=== PATIENT | male | born 1980 | race African-American/Black ===

== ENCOUNTER 2023-04-11 00:55 | Emergency (ER) | payer OTHER, SELFPAY ==
--- NOTE | ~2023-04-11 | XR_ITS ---
EXAMINATION: XR CHEST CLINICAL INFORMATION: Cough. COMPARISON: None available. TECHNIQUE: Frontal view of the chest was obtained. FINDINGS: The cardiomediastinal silhouette is normal. There is no focal lung consolidation or pleural effusion. The bony structures and soft tissues are unremarkable. XR/XR chest 1V IMPRESSION: No active cardiopulmonary disease.
--- NOTE | 2023-04-11 00:58 | ECG_ITS ---
Test Reason : OD Blood Pressure : / mmHG Vent. Rate : 102 BPM Atrial Rate : 102 BPM P-R Int : 158 ms QRS Dur : 088 ms QT Int : 362 ms P-R-T Axes : 068 063 008 degrees QTc Int : 471 ms Sinus tachycardia Minimal voltage criteria for LVH, may be normal variant ( Sokolow-Motley ) Nonspecific T wave abnormality Abnormal ECG No previous ECGs available Referred By: Generic ED Physician Electronically Signed By:RUTHY PIRES
[2023-04-11 01:01] VITALS: BP 141/91; PULSE 104; O2SAT 96; BMI 25.3
--- NOTE | 2023-04-11 01:22 | ED.OVERDOSE ---
HPI - Overdose General Chief Complaint: Overdose Stated Complaint: od Time Seen by Provider: 04/11/23 01:20 Source: patient Limitations: no limitations History of Present Illness HPI Narrative: Patient comes to the emergency room complaining of an overdose. Patient states this was an accident, did not mean to hurt himself. Patient was given 60 mg of Narcan by police department. When EMS arrived, patient was alert and oriented. Here in the emergency room, patient remains alert oriented, calm, states that he did drink hard alcohol but does not remember how much. Patient denies any falls or injuries. Denies HI or SI. Related Data Allergies Allergy/AdvReac Type Severity Reaction Status Date / Time No Known Allergies Allergy Verified 04/11/23 01:22 Review of Systems Review of Systems: Constitutional : No Weight loss, No Fever, No Chills, No Night Sweats, No Fatigue, No Malaise ENT/Mouth : No Hearing loss, No Ear Pain, No Nasal Congestion, No Sinus Pain, No Hoarseness, No sore throat, No Rhinorrhea, No Swallowing Difficulty Eyes: No Eye Pain, No Swelling, No Redness, No Foreign Body, No Discharge, No Vision Changes Cardiovascular : No Chest Pain, No SOB, No Dyspnea on Exertion, No Orthopnea, No Edema, No Palpitations Respiratory : No Cough, No Sputum, No Wheezing, No Smoke Exposure, No Dyspnea Gastrointestinal : No Nausea, No Vomiting, No Diarrhea, No Constipation, No abdominal Pain, No Hematochezia, No Melena Genitourinary : no irregular bleeding, No Dysuria, No Urinary Frequency, No Hematuria, No Urinary Incontinence, No Urgency, No Flank Pain, No Urinary Flow Changes, No Hesitancy Musculoskeletal : No joint pain, No Myalgias, No Joint Swelling Skin : No Skin Lesions, No rash Neuro : No Weakness, No Numbness, No Paresthesias, No Loss of Consciousness, No Dizziness, No Headache Psych : No Anxiety/Panic, No Depression, No SI/HI/AH/VH, admits to accidental overdose and alcohol abuse Heme/Lymph: No Bruising, No Bleeding,No Lymphadenopathy Endocrine : No Polyuria, No Polydipsia, No Temperature Intolerance PMFSH Past Medical History Medical History Alcohol abuse Polysubstance abuse Social History Social History Alcohol intake: current Alcohol intake frequency: 3 or more drinks per day Alcohol type: beer, wine and hard liquor Smoked in Last 30 Days: Yes Use of substances other than those prescribed or required for medical reasons: Yes Substance Use Type: Crack/Cocaine Substance Use Frequency: Daily Last Used Substance: Just Prior to Admission Any prior treatment program specific to substance use: No Physical Exam Vital Signs: Vital Signs: Last Vital Signs Temp 98.7 F 04/11/23 01:23 Pulse 99 04/11/23 01:23 Resp 14 04/11/23 01:23 BP 149/94 H 04/11/23 01:23 Pulse Ox 95 04/11/23 01:23 O2 Del Method Room Air 04/11/23 01:23 BMI result Body Mass Index 25.3 Const: Other: Appearance: Alert. Oriented X3. No acute distress. Eyes: Pupils equal, round and reactive to light. ENT: Pharynx normal. Neck: Normal inspection. Neck supple. No lymph nodes noted. No crepitus CVS: Normal heart rate and rhythm. Pulses normal. Normal S1 and S2 Respiratory: No respiratory distress. Breath sounds normal. No Wheezing. No rales Abdomen: Soft and nontender. No rigidity. No distention. Skin: Skin warm and dry. Normal skin color. Normal skin turgor. Extremities: No lower extremity edema. No Lacerations. No Rash Neuro: Oriented X 3. No motor deficit. No sensory deficit. Moving all extremities. No slurred speech. CN 2 through 12 grossly intact Psych: calm, cooperative, normal affect Course Course Course Narrative: -at this time, patient is awake, alert and oriented x3, calm, cooperative -patient's vitals stable, blood pressure 149/94, heart rate 99, respirations 14, oxygen saturation 96% on room air. -all of patient's labs pending -patient is not SI or HI, Section 12 is not indicated -when patient is ready for discharge, we will offer care/sude eval -patient to be discharged with home Narcan -physician observation started at 01:30 Discharge Plan Discharge Clinical Impression: Drug overdose Patient Disposition: Still a Patient
[2023-04-11 01:23] VITALS: BP 149/94; PULSE 99; RESP 14; TEMP 37.1; O2SAT 95
[2023-04-11 02:55] LABS: MANUAL DIFF FLAG NO
[2023-04-11 02:58] LABS: Basophils Percent Auto 0.3 % (0-2); Hematocrit 43.8 % (42.0-52.0); Hemoglobin 14.3 g/dl (14.0-18.0); Imm Gran Abs Auto 0.01 X10*3/uL (0.00-0.03); Imm Gran Pct Auto 0.1 % (0.0-0.4); Lymphocytes Absolute Auto 1.1 X10*3/uL (1.2-4.9); Lymphocytes Percent Auto 14.9 % (20-40); Mean Corpuscular HGB Conc 32.6 g/dl (31.0-36.0); Mean Corpuscular Hemoglobin 28.7 pg (27.0-33.0); Mean Corpuscular Volume 87.8 fL (80.0-98.0); Mean Platelet Volume 8.6 fL (9.4-12.4); Monocytes Absolute Auto 0.4 X10*3/uL (0.1-1.2); Monocytes Percent Auto 5.2 % (2-11); Neutrophils Absolute Auto 5.9 x10*3/uL (2.0-8.3); Neutrophils Percent Auto 79.5 % (45-73); Platelet Count 271 X10*3/uL (160-400); Red Blood Count 4.99 X10*6/uL (4.60-5.80); Red Cell Distribution Width 13.3 % (11.0-16.0); White Blood Count 7.4 X10*3/uL (4.8-10.8)
[2023-04-11 03:12] LABS: Ethanol 173 mg/dL
[2023-04-11 03:15] LABS: Alanine Aminotransferase 19 U/L (0-40); Albumin Level 4.2 g/dL (3.5-5.0); Alkaline Phosphatase 82 U/L (39-117); Anion Gap 20 (12-20); Aspartate Amino Transferase 23 U/L (5-37); Bilirubin Total 0.4 mg/dL (0.0-1.0); Blood Urea Nitrogen 14 mg/dL (9-16); Carbon Dioxide 21 mmol/L (22-29); Chloride 106 mmol/L (96-108); Creatinine Clr Calc Pharmacy 78.3; Estimated Glomerular Filt Rate > 60; Glucose Random 81 mg/dL (60-115); Potassium 3.9 mmol/L (3.3-5.1); Sodium 143 mmol/L (135-145); Total Protein 7.2 g/dL (6.5-8.0)
[2023-04-11 03:31] LABS: Troponin-I High Sensitivity 3.8 ng/L (<3.5-35.0)
[2023-04-11 05:07] VITALS: BP 108/39; PULSE 98; RESP 19; O2SAT 95
[2023-04-11 06:11] VITALS: BP 105/45; PULSE 104; RESP 14; TEMP 36.6; O2SAT 96
[2023-04-11 07:18] VITALS: BP 118/58; PULSE 110; RESP 18; O2SAT 96
--- NOTE | 2023-04-11 07:19 | PC.NURSE ---
pt alert and oriented, skin appropriate for ethnicity, respirations even and unlabored, pt denies pain, pt provided with a sandwich and drink.
[2023-04-11] MEDS: Naloxone HCl Nasal TAKE HOME 4 MG SPRAY 8 MG NOSTRILALT (07:28)
== END 2023-04-11 07:31 | disposition home or self-care (01) ==
LOC: HO.ED 07:27
PROVIDERS: Emergency Provider Emergency Medicine
DX: T50.901A Poisoning by unspecified drugs, medicaments and biological substances, accidental (unintentional), initial encounter (principal); F19.10 Other psychoactive substance abuse, uncomplicated; X58.XXXA Exposure to other specified factors, initial encounter; F10.10 Alcohol abuse, uncomplicated; Y90.6 Blood alcohol level of 120-199 mg/100 ml
CPT/HCPCS: 36415; 71045; 80053; 80307; 84484; 85025; 93005; 99284; 99285

== ENCOUNTER 2023-05-23 23:37 | Emergency (ER) | payer OTHER, SELFPAY ==
--- NOTE | 2023-05-23 | ECG_ITS ---
Test Reason : OVERDOSE Blood Pressure : / mmHG Vent. Rate : 104 BPM Atrial Rate : 104 BPM P-R Int : 156 ms QRS Dur : 086 ms QT Int : 358 ms P-R-T Axes : 079 073 -10 degrees QTc Int : 470 ms Sinus tachycardia Abnormal QRS-T angle, consider primary T wave abnormality Abnormal ECG When compared with ECG of 11-APR-2023 01:10, No significant change was found Referred By: Generic ED Physician Electronically Signed By:AKHIL KIRKPATRICK MD
--- NOTE | ~2023-05-23 | XR_ITS ---
EXAMINATION: XR SHOULDER, LEFT CLINICAL INFORMATION: Pain. COMPARISON: None available. TECHNIQUE: AP external rotation, Grashey, scapular Y, and axillary views of the left shoulder. FINDINGS: The bone mineralization is normal. There is elevation of the clavicular end of the acromioclavicular joint relative to the acromial end. There is no fracture. The glenohumeral joint is within normal limits. The soft tissues are unremarkable. XR/XR shoulder LT min 2V IMPRESSION: Elevation of the clavicular end of the acromioclavicular joint relative to the acromial end suggests a grade 2 acromioclavicular separation probably chronic as there is no given history of recent trauma. No acute fracture seen.
[2023-05-23 23:48] VITALS: BP 155/84; BP 158/95; PULSE 108; PULSE 114; RESP 16; TEMP 37; O2SAT 98; BMI 25.8
--- NOTE | 2023-05-24 00:18 | MHC.EDTECH ---
Patient arrived by EMS,changed into hospital attire,cafeteria monitor placed and EKG taken per order. Vitals taken,and all belongings went to [facility],security at bedside for changeover. Belonging list completed.
--- NOTE | 2023-05-24 00:22 | ED.OVERDOSE ---
HPI - Overdose General Chief Complaint: Overdose Stated Complaint: OD Time Seen by Provider: 05/24/23 00:22 Source: patient and EMS Mode of arrival: EMS Limitations: no limitations History of Present Illness HPI Narrative: Patient history of substance abuse says that somebody gave him a powder and he sniffed also had few drinks earlier denies any chronic use of opiate use but he was seen here on 04/11/2023 with opiate overdose again patient lying unconscious in the middle of the road with shallow breathing was given 12 mg of Narcan by PD patient alert awake on arrival saturating 98% on room air patient also complaining of pain in left shoulder which is been there for long time also had history of Chlamydia few months ago but never been treated no penile discharge Related Data Previous Rx's Medication Instructions Recorded doxycycline hyclate 100 mg tablet 100 mg PO BID #14 tabs 05/24/23 Allergies Allergy/AdvReac Type Severity Reaction Status Date / Time No Known Allergies Allergy Verified 04/11/23 01:22 Review of Systems Review of Systems: Yes all other systems are reviewed and are negative [facility] Past Medical History Medical History Alcohol abuse Polysubstance abuse Social History Social History Alcohol intake: current Alcohol intake frequency: 3 or more drinks per day Alcohol type: beer, wine and hard liquor Smoked in Last 30 Days: Yes Use of substances other than those prescribed or required for medical reasons: Yes Substance Use Type: Crack/Cocaine and Heroin Substance Use Frequency: Chronic Longstanding Advance Directives: No Advance Directives Information Provided: No Physical Exam Vital Signs: Vital Signs: Last Vital Signs Temp 98.2 F 05/24/23 04:12 Pulse 98 05/24/23 04:12 Resp 16 05/24/23 04:12 BP 140/76 H 05/24/23 04:12 Pulse Ox 98 05/24/23 04:12 O2 Del Method Room Air 05/24/23 04:12 BMI result Body Mass Index 25.8 Appearance: Alert. Oriented X3. No acute distress. Eyes: PERRLA, No Nystagmus ENT: Pharynx normal. Oral Mucosa moist Neck: Normal inspection. Neck supple. CVS: Normal heart rate and rhythm. Pulses normal. Respiratory: No respiratory distress. Equal air entry bilateral, no wheezing/rales/rhonchi Abdomen: Soft and nontender. Bowel sounds are present, no mass palpable, no CVA tenderness Skin: Skin warm and dry. Normal skin color. Normal skin turgor. Extremities: No lower extremity edema. No calf tenderness left shoulder chronic tenderness Neuro: Oriented X 3. No motor deficit. No sensory deficit.No cerebellar signs , cranial nerves II-XII intact Medications Administered Discontinued Medications Generic Name Dose Route Start Last Admin Trade Name Kentrell PRN Reason Stop Dose Admin Doxycycline Monohydrate 100 mg 05/24/23 02:17 05/24/23 02:31 Doxycycline Monohydrate 100 Mg Capsule PO 05/24/23 02:18 100 mg ONCE ONE Administration Medical Decision Making Medical Decision Making [facility] Narrative: Patient with opiate and cocaine overdose alert oriented x3 in ER x-ray of the left shoulder showed AC separation which is likely the cause for the chronic pain patient was given doxycycline for presumptive chlamydia infection Lab Data [facility] Lab Attestation statement: I reviewed the patient's lab results. Labs: Lab Results 05/24/23 Range/Units 03:10 Urine Opiates Screen Not Detected (Not Detect) Urine Fentanyl Screen POSITIVE H (Not Detect) Ur Barbiturates Screen Not Detected (Not Detect) Ur Phencyclidine Scrn Not Detected (Not Detect) Ur Amphetamines Screen Not Detected (Not Detect) U Benzodiazepines Scrn Not Detected (Not Detect) Urine Cocaine Screen POSITIVE H (Not Detect) U Marijuana (THC) Screen Not Detected (Not Detect) Chlam trachomat DNA PCR NOT DETECTED (Not Detect.) N.gonorrhoeae DNA (PCR) NOT DETECTED (Not Detect.) Discharge Plan Discharge Clinical Impression: Accidental opiate poisoning, Cocaine abuse Patient Disposition: Home, Self-Care Instructions: Cocaine Abuse (ED), Opioid Use Disorder (ED) Additional Instructions: Stop using drugs Take doxycycline for possible chlamydia infection as you had this few months ago and not been treated Your chronic left shoulder AC separation causing the pain Prescriptions: New doxycycline hyclate 100 mg tablet 100 mg PO BID Qty: 14 0RF Interventions: ED Discharge Assessment Last Done: 05/24/23 05:16 Discharge Date/Time: 05/24/23 05:18
[2023-05-24 02:08] VITALS: BP 152/79; PULSE 98; RESP 18; TEMP 36.7; O2SAT 98
--- NOTE | 2023-05-24 02:09 | MHC.EDTECH ---
Patient was giving a sandwich and a can of gingerale,Hourly rounds and vitals completed.
[2023-05-24] MEDS: Doxycycline Monohydrate 100 MG CAPSULE PO (02:31)
--- NOTE | 2023-05-24 03:10 | MHC.EDTECH ---
UDS and CTNG obtained and sent to lab.
[2023-05-24 03:28] LABS: Amphetamine Screen Urine Not Detected (Not Detect); Barbiturates, Urine Not Detected (Not Detect); Benzodiazepines Screen Urine Not Detected (Not Detect); Cannabinoid Screen Urine Not Detected (Not Detect); Cocaine Screen Urine POSITIVE (Not Detect); Fentanyl, urine POSITIVE (Not Detect); Opiate Screen Urine Not Detected (Not Detect); Phencyclidine Screen Urine Not Detected (Not Detect)
[2023-05-24 04:12] VITALS: BP 140/76; PULSE 98; RESP 16; TEMP 36.8; O2SAT 98
--- NOTE | 2023-05-24 04:16 | MHC.EDTECH ---
Hourly rounds and vitals completed,patient is sleeping at this time with call blount within reach
[2023-05-24 12:14] LABS: CT PCR NOT DETECTED (Not Detect.); NG PCR NOT DETECTED (Not Detect.)
== END 2023-05-24 05:18 | disposition home or self-care (01) ==
PROVIDERS: Emergency Provider Internal Medicine
DX: T40.1X1A Poisoning by heroin, accidental (unintentional), initial encounter (principal); Y92.9 Unspecified place or not applicable; R00.0 Tachycardia, unspecified; M25.512 Pain in left shoulder; F14.10 Cocaine abuse, uncomplicated; F11.10 Opioid abuse, uncomplicated; Z71.51 Drug abuse counseling and surveillance of drug abuser; Z79.899 Other long term (current) drug therapy
CPT/HCPCS: 0353U; 73030; 80307; 93005; 99283; 99285

== ENCOUNTER 2023-05-31 04:13 | Emergency (ER) | payer OTHER, SELFPAY ==
--- NOTE | 2023-05-31 | ECG_ITS ---
Test Reason : cocaine use Blood Pressure : / mmHG Vent. Rate : 088 BPM Atrial Rate : 088 BPM P-R Int : 146 ms QRS Dur : 072 ms QT Int : 364 ms P-R-T Axes : 077 061 006 degrees QTc Int : 440 ms Normal sinus rhythm with sinus arrhythmia Minimal voltage criteria for LVH, may be normal variant ( Sokolow-Motley ) Borderline ECG When compared with ECG of 23-MAY-2023 23:46, T wave amplitude has increased in Anterolateral leads Referred By: Generic ED Physician Electronically Signed By:AKHIL KIRKPATRICK MD
[2023-05-31 04:30] VITALS: BP 193/112; PULSE 101; RESP 20; TEMP 36.7; O2SAT 98; BMI 25.8
--- NOTE | 2023-05-31 04:51 | MHC.EDTECH ---
Patient brought to triage area, EKG taken per order and signed by provider.
[2023-05-31 05:55] VITALS: BP 164/86; PULSE 98; RESP 20; O2SAT 98
--- NOTE | 2023-05-31 06:50 | ED_ITS ---
HPI - General Adult General Chief complaint: General Medical Stated complaint: l shoulder pain and numbness down to hand Time Seen by Provider: 05/31/23 06:40 Source: patient Mode of arrival: ambulatory Limitations: no limitations History of Present Illness HPI narrative: 42 year old male with pmhx significant for substance use disorder presents to the ED today with a complaint of left shoulder pain x months, worsening over the last week. He was evaluated in our ED 7 days ago for same pain with XRs showing chronic AC separation. He was not prescribed any medication for this and has not been taking anything for the pain at home. Denies new injury or trauma to the left shoulder. Reports full range of motion to the left arm/ shoulder however this elicits pain. Denies numbness, weakness, tingling down the left arm. Denies chest pain, shortness of breath, palpitations. Related Data Previous Rx's Medication Instructions Recorded doxycycline hyclate 100 mg tablet 100 mg PO BID #14 tabs 05/24/23 lidocaine 5 % topical patch 1 patch topical DAILY #15 ea 05/31/23 (Lidoderm) naproxen 500 mg tablet 500 mg PO Q8-12H PRN pain (scale 05/31/23 score 4-6) #20 tabs Allergies Allergy/AdvReac Type Severity Reaction Status Date / Time No Known Allergies Allergy Verified 04/11/23 01:22 Review of Systems 2 Review of Systems: Constitutional: No fever, chills, fatigue, night sweats, weight changes ENT/Mouth: No ear pain, hearing loss, nasal congestion, sinus pain, rhinorrhea, sore throat Eyes: No eye pain, swelling, redness, vision changes, discharge Cardio: No chest pain, palpitations, FERNANDEZ, orthopnea, peripheral edema Pulm: No SOB, cough, sputum, wheezing, dyspnea, hemoptysis GI: No nausea, vomiting, hematemesis, abdominal pain, diarrhea, constipation, hematochezia, melena : No irregular bleeding, dysuria, frequency, urgency, hesitancy, hematuria, flank pain, urinary flow changes, urinary incontinence or retention MSK: No back pain, neck pain, joint pain, myalgias, +left shoulder pain Skin: No lesions, rashes Neuro: No weakness, numbness, paresthesias, LOC, dizziness, headache All other systems reviewed and are negative. [facility] Past Medical History Attestation statement: The following information was validated with the patient. Source: old records reviewed and nursing notes reviewed Medical History Alcohol abuse Polysubstance abuse Social History Alcohol intake: current Alcohol intake frequency: 3 or more drinks per day Alcohol type: beer, wine and hard liquor Smoked in Last 30 Days: Yes Use of substances other than those prescribed or required for medical reasons: Yes Substance Use Type: Crack/Cocaine Last Used Substance: Just Prior to Admission Advance Directives: No Advance Directives Information Provided: Yes Physical Exam ED Vital Signs: Vital Signs - 24 hr 05/31/23 04:30 05/31/23 05:55 05/31/23 10:41 Temperature 98.0 F Pulse Rate 101 H 98 73 Respiratory Rate 20 20 14 Blood Pressure 193/112 H 164/86 H 129/79 Pulse Oximetry 98 98 97 Oxygen Delivery Method Room Air Room Air Room Air BMI result Body Mass Index 25.8 Viital signs initially notable for tachycardia and tachypnea likely secondary to cocaine ingestion prior to arrival. Const General: cooperative, comfortable, no acute distress, alert and awake Orientation/consciousness: patient oriented x3 Limitations: no limitations HENMT Head: Yes normal to inspection Ears: hearing grossly normal bilaterally Eyes General: appearance normal, both eyes and all related structures Conjunctivae: conjunctivae normal Sclerae: sclerae normal Pupils: Equal, round and reactive pupils present Neck Neck: Yes normal visual inspection and Yes full ROM Chest Chest palpation & inspection: normal inspection of the chest, normal palpation of entire chest wall and no tenderness Resp Effort & Inspection: normal respiratory effort Auscultation: clear to auscultation bilaterally Cardio Rate: regular rate Rhythm: regular rhythm Peripheral pulses: radial pulses present and ulnar radial pulses present Back/Spine/Pelvis Other: No midline spinous tenderness. No paraspinal muscle tenderness bilaterally. No step-off deformity. Skin General skin exam: no rashes or lesions noted Neuro General: patient oriented x3, gait normal and moves all extremities Cranial nerves: Yes Equal, round and reactive pupils present Extrem Other: + No overlying effusion or cellulitic changes to the left shoulder. There is tenderness overlying the posterior and lateral aspects of the left shoulder without palpable deformity or step-off. There is full ROM intact of the left shoulder to flexion, extension, abduction, adduction. There is increased pain noted during abduction of left shoulder. 2+ radial and ulnar pulses bilaterally. Negative Tinel's. Negative Phalen's. General: Yes normal to inspection and Yes full ROM Course Course Course Narrative: CBC without leukocytosis. Chemistry without acute electrolyte abnormality requiring intervention. EKG WNL. Troponin WNL. > Symptoms are not consistent with ACS. > on chart review, x-ray left shoulder obtained 7 days ago shows a type 2 AC separation. this is likely the cause of patient's pain. management for this is pain control and sling. Will apply sling in ED and provide patient with a referral to Orthopedics for further evaluation and treatment. Will send naproxen, Lidoderm patches to patient's pharmacy to take as needed for pain. Informed him of workup. patient reports pain improvement with medications in ED today. He is feeling better and requesting food. Patient has remained stable throughout ED visit today. Discussed strict return precautions. All questions answered at this time. Patient is agreeable with disposition and stable for discharge. Medications Administered Discontinued Medications Generic Name Dose Route Start Last Admin Trade Name Freq PRN Reason Stop Dose Admin Cyclobenzaprine HCl 10 mg 05/31/23 07:27 05/31/23 07:36 Cyclobenzaprine Hcl 10 Mg Tablet PO 05/31/23 07:28 10 mg ONCE ONE Administration Ketorolac Tromethamine 15 mg 05/31/23 07:27 05/31/23 07:36 Ketorolac Tromethamine 15 Mg/Ml Vial IM 05/31/23 07:28 15 mg ONCE ONE Administration Lidocaine 1 patch 05/31/23 07:27 05/31/23 07:37 Lidocaine 4 % Patch Adh..Patch TRANSDERMA 05/31/23 07:28 1 patch ONCE ONE Administration Protocol Medical Decision Making Medical Decision Making MDM Narrative: 42 year old male with pmhx significant for substance use disorder presents to the ED today with a complaint of left shoulder pain x months, worsening over the last week. Vital signs initially notable for hypertension and tachycardia likely secondary to cocaine abuse prior to arrival. Vital signs have normalized without intervention. He is nontoxic appearing and in NAD. On exam there is no overlying effusion or cellulitic changes to the left shoulder. There is tenderness overlying the posterior and lateral aspects of the left shoulder without palpable deformity or step-off. There is full ROM intact of the left shoulder to flexion, extension, abduction, adduction. There is increased pain noted during abduction of left shoulder. 2+ radial and ulnar pulses bilaterally. Negative Tinel's. Negative Phalen's. RRR. No midline spinous tenderness or step off deformity. Clinical concern for fracture, dislocation, acromioclavicular joint pathology, MSK sprain/ strain. Unlikely cervical radiculopathy, rotator cuff injury, cubital or carpal tunnel syndrome. plan at this time and is basic labs, EKG, pain control, review of chart and re- evaluation. Differential Diagnosis Differential Diagnoses: The differential diagnosis associated with the presentation includes As above. Admission/Observation Not indicated. Lab Data MDM Lab Attestation statement: I reviewed the patient's lab results. As above. 05/31/23 07:17 05/31/23 07:17 Labs: Lab Results 05/31/23 Range/Units 07:17 WBC 9.5 (4.8-10.8) X10*3/uL RBC 4.75 (4.60-5.80) X10*6/uL Hgb 13.3 L (14.0-18.0) g/dl Hct 40.6 L (42.0-52.0) % MCV 85.5 (80.0-98.0) fL MCH 28.0 (27.0-33.0) pg MCHC 32.8 (31.0-36.0) g/dl RDW 13.1 (11.0-16.0) % Plt Count 328 (160-400) X10*3/uL MPV 8.5 L (9.4-12.4) fL Immature Gran % (Auto) 0.2 (0.0-0.4) % Neut % (Auto) 71.5 (45-73) % Lymph % (Auto) 21.5 (20-40) % [place] % (Auto) 6.4 (2-11) % Eos % (Auto) 0.1 (0-4) % Baso % (Auto) 0.3 (0-2) % Lymph # (Auto) 2.0 (1.2-4.9) X10*3/uL [place] # (Auto) 0.6 (0.1-1.2) X10*3/uL Eos # (Auto) 0.0 (0.0-0.4) X10*3/uL Baso # (Auto) 0.0 (0.0-0.2) X10*3/uL Abs Immat Gran (auto) 0.02 (0.00-0.03) X10*3/uL Absolute Neuts (auto) 6.8 (2.0-8.3) x10*3/uL Absolute Nucleated RBC 0.000 (0.0-0.012) X10*3/uL Nucleated RBC % (auto) 0.0 (0.0-0.2) /100WBC ESR 3 (0-15) MM/HR Sodium 141 (135-145) mmol/L Potassium 3.6 (3.3-5.1) mmol/L Chloride 107 (96-108) mmol/L Carbon Dioxide 27 (22-29) mmol/L Anion Gap 11 L (12-20) BUN 14 (9-16) mg/dL Creatinine 1.00 (0.5-1.4) mg/dL Estim Creat Clear Calc 87.7 Estimated GFR > 60 Random Glucose 103 (60-115) mg/dL Calcium 9.1 (8.4-10.2) mg/dL Magnesium 1.9 (1.6-2.6) mg/dL Troponin I High Sens 6.2 D (<3.5-35.0) ng/L C-Reactive Protein 0.49 (< or = 0.50) mg/dL Independent Interpretation I performed an independent interpretation of an: EKG Interpretation: EKG showing normal sinus rhythm with sinus arrhythmia, rate of 88 ppm, QT 364, increased T-wave amplitude in anterior lateral leads likely secondary to cocaine abuse. External Record Review External record reviewed: Inpatient record Tests considered The following testing was considered but not selected: Considered obtaining x-ray left shoulder however for imaging performed 7 days ago without new injury or trauma to the shoulder. Not indicated at this time. Prescription Management I considered prescription management with: Pain Medication Chronic Conditions Patient?s care impacted by: Other (polysubstance abuse) Critical Care Time Critical Care Time Critical Care Time: No Discharge Plan Discharge Clinical Impression: Separation of AC joint, type 2 Patient Disposition: Home, Self-Care Instructions: Acromioclavicular Separation (ED), Shoulder Pain (ED) Additional Instructions: Your labs today are reassuring. You had an x-ray performed of your left shoulder 7 days ago which showed a grade 2 AC joint separation, chronic. Management for this is pain control and sling. You have been provided with a sling for your left shoulder. Keep this on for the next 7 days to immobilize the shoulder. You need to follow up with ortho. You have been provided with a referral. CALL THEM TO MAKE AN APPOINTMENT. THEY WILL NOT CALL YOU. You may require physical therapy or even surgery. Naproxen is an anti-inflammatory that has been sent to your pharmacy. Take this as needed for shoulder pain/discomfort. Do not take this with other NSAIDs as it may increase risk of GI bleed. Lidocaine patches have been sent to your pharmacy. Apply these to shoulder as needed for pain control. Follow-up with your primary care physician as needed. If symptoms persist or worsen you can return to the emergency department. In the case of emergency call 911. Prescriptions: New lidocaine [Lidoderm] 5 % adhesive patch,medicated 1 patch topical DAILY Qty: 15 0RF Rx Instructions: leave on most painful area for up to 12 hrs naproxen 500 mg tablet 500 mg PO Q8-12H PRN (Reason: pain (scale score 4-6)) Qty: 20 0RF No Action doxycycline hyclate 100 mg tablet 100 mg PO BID Qty: 14 0RF Referrals: [facility] [Provider Group] Interventions: ED Discharge Assessment Last Done: 05/31/23 10:49 Discharge Date/Time: 05/31/23 12:23
[2023-05-31 07:22] LABS: MANUAL DIFF FLAG NO
[2023-05-31 07:26] LABS: Basophils Percent Auto 0.3 % (0-2); Eosinophils Percent Auto 0.1 % (0-4); Hematocrit 40.6 % (42.0-52.0); Hemoglobin 13.3 g/dl (14.0-18.0); Imm Gran Abs Auto 0.02 X10*3/uL (0.00-0.03); Imm Gran Pct Auto 0.2 % (0.0-0.4); Lymphocytes Percent Auto 21.5 % (20-40); Mean Corpuscular HGB Conc 32.8 g/dl (31.0-36.0); Mean Corpuscular Volume 85.5 fL (80.0-98.0); Mean Platelet Volume 8.5 fL (9.4-12.4); Monocytes Absolute Auto 0.6 X10*3/uL (0.1-1.2); Monocytes Percent Auto 6.4 % (2-11); Neutrophils Absolute Auto 6.8 x10*3/uL (2.0-8.3); Neutrophils Percent Auto 71.5 % (45-73); Platelet Count 328 X10*3/uL (160-400); Red Blood Count 4.75 X10*6/uL (4.60-5.80); Red Cell Distribution Width 13.1 % (11.0-16.0); White Blood Count 9.5 X10*3/uL (4.8-10.8)
[2023-05-31 07:36] LABS: Anion Gap 11 (12-20); Blood Urea Nitrogen 14 mg/dL (9-16); C Reactive Protein 0.49 mg/dL (< or = 0.50); Calcium 9.1 mg/dL (8.4-10.2); Carbon Dioxide 27 mmol/L (22-29); Chloride 107 mmol/L (96-108); Creatinine Clr Calc Pharmacy 87.7; Estimated Glomerular Filt Rate > 60; Glucose Random 103 mg/dL (60-115); Magnesium 1.9 mg/dL (1.6-2.6); Potassium 3.6 mmol/L (3.3-5.1); Sodium 141 mmol/L (135-145)
[2023-05-31] MEDS: Ketorolac Tromethamine 15 MG/ML VIAL IM (07:36)
[2023-05-31] MEDS: Cyclobenzaprine HCl 10 MG TABLET PO (07:36)
[2023-05-31] MEDS: Lidocaine 4 % Patch ADH..PATCH 1 PATCH TRANSDERMA (07:37)
[2023-05-31 07:43] LABS: Troponin-I High Sensitivity 6.2 ng/L (<3.5-35.0)
[2023-05-31 08:12] LABS: Erythrocyte Sedimentation Rate 3 MM/HR (0-15)
[2023-05-31 10:41] VITALS: BP 129/79; PULSE 73; RESP 14; O2SAT 97
--- NOTE | 2023-05-31 11:27 | PC.NURSE ---
pts belongings in dryer in pod. awaitng d/c
== END 2023-05-31 12:23 | disposition home or self-care (01) ==
PROVIDERS: Physician Assistant Medical; Emergency Provider Emergency Medicine
DX: S43.102A Unspecified dislocation of left acromioclavicular joint, initial encounter (principal); X58.XXXA Exposure to other specified factors, initial encounter; Y93.9 Activity, unspecified; Y92.9 Unspecified place or not applicable; Y99.9 Unspecified external cause status; F14.90 Cocaine use, unspecified, uncomplicated; M25.512 Pain in left shoulder
CPT/HCPCS: 36415; 80048; 83735; 84484; 85025; 85652; 86140; 93005; 96372; 99284; J1885

== ENCOUNTER 2024-04-21 04:22 | Inpatient (IN) | payer OTHER, SELFPAY ==
[2024-04-21] VITALS (8 sets, daily range): BP systolic 125–172; BP diastolic 66–95; PULSE 62–102; RESP 14–18; TEMP 36.6–37.2; O2SAT 94–99; BMI 26.0
--- NOTE | 2024-04-21 05:06 | ED_ITS ---
HPI - Psych General Chief Complaint: Psychiatric Symptoms Stated Complaint: crisis Time Seen by Provider: 04/21/24 05:06 Source: patient Mode of arrival: ambulatory Limitations: no limitations History of Present Illness ED Provider: ney CHOUDHURY Narrative: Patient's history of cocaine opiate use feel increasingly depressed with SI feeling last use was an hour prior to arrival Related Data Previous Rx's ?Medication ?Instructions ?Recorded doxycycline hyclate 100 mg tablet 100 mg PO BID #14 tabs 05/24/23 lidocaine 5 % topical patch 1 patch topical DAILY #15 ea 05/31/23 (Lidoderm) naproxen 500 mg tablet 500 mg PO Q8-12H PRN pain (scale 05/31/23 score 4-6) #20 tabs Allergies Allergy/AdvReac Type Severity Reaction Status Date / Time No Known Allergies Allergy Verified 04/21/24 04:30 Review of Systems 2 Review of Systems: Yes all other systems are reviewed and are negative PMFSH Past Medical History Medical History Alcohol abuse Polysubstance abuse Social History Social History Alcohol intake: current Alcohol intake frequency: 3 or more drinks per day Alcohol type: beer, wine and hard liquor Use of substances other than those prescribed or required for medical reasons: Yes Substance Use Type: Crack/Cocaine Advance Directives: No Physical Exam 2 Vital Signs: Vital Signs: Last Vital Signs Temp 99 F 04/21/24 06:00 Pulse 102 H 04/21/24 06:00 Resp 16 04/21/24 06:00 BP 135/67 04/21/24 06:00 Pulse Ox 97 04/21/24 06:00 O2 Del Method Room Air 04/21/24 06:00 BMI result Body Mass Index 26.0 Appearance: Alert. Oriented X3. No acute distress. Eyes: PERRLA, No Nystagmus ENT: Pharynx normal. Oral Mucosa moist Neck: Normal inspection. Neck supple. CVS: Normal heart rate and rhythm. Pulses normal. Respiratory: No respiratory distress. Equal air entry bilateral, no wheezing/rales/rhonchi Abdomen: Soft and nontender. Bowel sounds are present, no mass palpable, no CVA tenderness Skin: Skin warm and dry. Normal skin color. Normal skin turgor. Extremities: No lower extremity edema. No calf tenderness psych: Depressed feels suicidal no plan Neuro: Oriented X 3. No motor deficit. No sensory deficit.No cerebellar signs , cranial nerves II-XII intact Medical Decision Making Medical Decision Making [facility] Narrative: Patient with polysubstance abuse with SI will get care team involved Lab Data MDM Lab Attestation statement: I reviewed the patient's lab results. 04/21/24 05:19 04/21/24 05:19 Labs: Lab Results 04/21/24 Range/Units 05:19 WBC 5.8 (4.8-10.8) X10*3/uL RBC 4.90 (4.60-5.80) X10*6/uL Hgb 13.6 L (14.0-18.0) g/dl Hct 41.1 L (42.0-52.0) % MCV 83.9 (80.0-98.0) fL MCH 27.8 (27.0-33.0) pg MCHC 33.1 (31.0-36.0) g/dl RDW 13.2 (11.0-16.0) % Plt Count 313 (160-400) X10*3/uL MPV 8.3 L (9.4-12.4) fL Immature Gran % (Auto) 0.2 (0.0-0.4) % Neut % (Auto) 55.6 (45-73) % Lymph % (Auto) 35.2 (20-40) % [place] % (Auto) 8.2 (2-11) % Eos % (Auto) 0.3 (0-4) % Baso % (Auto) 0.5 (0-2) % Lymph # (Auto) 2.0 (1.2-4.9) X10*3/uL [place] # (Auto) 0.5 (0.1-1.2) X10*3/uL Eos # (Auto) 0.0 (0.0-0.4) X10*3/uL Baso # (Auto) 0.0 (0.0-0.2) X10*3/uL Abs Immat Gran (auto) 0.01 (0.00-0.03) X10*3/uL Absolute Neuts (auto) 3.2 (2.0-8.3) x10*3/uL Absolute Nucleated RBC 0.000 (0.0-0.012) X10*3/uL Nucleated RBC % (auto) 0.0 (0.0-0.2) /100WBC Sodium 140 (135-145) mmol/L Potassium 3.7 (3.3-5.1) mmol/L Chloride 102 (96-108) mmol/L Carbon Dioxide 28 (22-29) mmol/L Anion Gap 14 (12-20) BUN 9 (9-16) mg/dL Creatinine 1.11 (0.5-1.4) mg/dL Estim Creat Clear Calc 78.2 Estimated GFR > 60 Random Glucose 99 (60-115) mg/dL Calcium 9.1 (8.4-10.2) mg/dL Total Bilirubin 0.8 (0.0-1.0) mg/dL AST 21 (5-37) U/L ALT 21 (0-40) U/L Alkaline Phosphatase 92 (39-117) U/L Total Protein 6.8 (6.5-8.0) g/dL Albumin 4.2 (3.5-5.0) g/dL Ethyl Alcohol < 10 mg/dL Discharge Plan Discharge Clinical Impression: Suicidal ideation, Polysubstance abuse Patient Disposition: Still a Patient Prescriptions: No Action lidocaine [Lidoderm] 5 % adhesive patch,medicated 1 patch topical DAILY Qty: 15 0RF Rx Instructions: leave on most painful area for up to 12 hrs naproxen 500 mg tablet 500 mg PO Q8-12H PRN (Reason: pain (scale score 4-6)) Qty: 20 0RF doxycycline hyclate 100 mg tablet 100 mg PO BID Qty: 14 0RF Print Language: Hebrew
[2024-04-21 05:24] LABS: Basophils Percent Auto 0.5 % (0-2); Eosinophils Percent Auto 0.3 % (0-4); Hematocrit 41.1 % (42.0-52.0); Hemoglobin 13.6 g/dl (14.0-18.0); Imm Gran Abs Auto 0.01 X10*3/uL (0.00-0.03); Imm Gran Pct Auto 0.2 % (0.0-0.4); Lymphocytes Percent Auto 35.2 % (20-40); MANUAL DIFF FLAG NO; Mean Corpuscular HGB Conc 33.1 g/dl (31.0-36.0); Mean Corpuscular Hemoglobin 27.8 pg (27.0-33.0); Mean Corpuscular Volume 83.9 fL (80.0-98.0); Mean Platelet Volume 8.3 fL (9.4-12.4); Monocytes Absolute Auto 0.5 X10*3/uL (0.1-1.2); Monocytes Percent Auto 8.2 % (2-11); Neutrophils Absolute Auto 3.2 x10*3/uL (2.0-8.3); Neutrophils Percent Auto 55.6 % (45-73); Platelet Count 313 X10*3/uL (160-400); Red Cell Distribution Width 13.2 % (11.0-16.0); White Blood Count 5.8 X10*3/uL (4.8-10.8)
[2024-04-21 05:46] LABS: Alanine Aminotransferase 21 U/L (0-40); Albumin Level 4.2 g/dL (3.5-5.0); Alkaline Phosphatase 92 U/L (39-117); Anion Gap 14 (12-20); Aspartate Amino Transferase 21 U/L (5-37); Bilirubin Total 0.8 mg/dL (0.0-1.0); Blood Urea Nitrogen 9 mg/dL (9-16); Calcium 9.1 mg/dL (8.4-10.2); Carbon Dioxide 28 mmol/L (22-29); Chloride 102 mmol/L (96-108); Creatinine Clr Calc Pharmacy 78.2; Estimated Glomerular Filt Rate > 60; Ethanol < 10 mg/dL; Glucose Random 99 mg/dL (60-115); Potassium 3.7 mmol/L (3.3-5.1); Sodium 140 mmol/L (135-145); Total Protein 6.8 g/dL (6.5-8.0)
--- NOTE | 2024-04-21 06:28 | PC.NURSE ---
Pt is a&ox4, no signs of distress Pt calm and cooperative. Pt changed into hospital attire and sitter with pt Plan of care ongoing.
--- NOTE | 2024-04-21 07:00 | PC.NURSE ---
Report taken from Coreen Renteria RN
--- NOTE | 2024-04-21 10:32 | PC.NURSE ---
this nurse took over patient care at 9am from chris, patient a&ox3, vss, pt rr equal/non labored, 1:1 sitter, pt came in with thoughts of SI but is currently denying SI. pt awaiting care team, med req needs to be done- this nurse will attempt med req with patient.
--- NOTE | 2024-04-21 10:40 | PC.NURSE ---
med req called pharmacy to perform med req as patient told this nurse he hadnt taken meds in a long while.
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
[2024-04-21 12:48] LABS: Amphetamine Screen Urine Not Detected (Not Detect); Barbiturates, Urine Not Detected (Not Detect); Benzodiazepines Screen Urine Not Detected (Not Detect); Buprenorphine Scr Not Detected (Not Detect); Cannabinoid Screen Urine Not Detected (Not Detect); Cocaine Screen Urine POSITIVE (Not Detect); Fentanyl, urine Not Detected (Not Detect); Methadone Screen, Urine Not Detected (Not Detect); Opiate Screen Urine Not Detected (Not Detect); Oxycodone Screen Urine Not Detected (Not Detect); Phencyclidine Screen Urine Not Detected (Not Detect)
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
--- NOTE | 2024-04-21 19:07 | PC.NURSE ---
this rn assumed care of pt, pt resting in stretcher,no acute distress noted.pt denies pain at this time, vss. Randolph ESPARZA aware of pt med rec being complete.
--- NOTE | 2024-04-21 19:30 | MHC.CARE ---
Pt evaluated by the CARE team; Pt is appropriate for Dual Dx and Pt is agreeable. No Dual Dx availability today. On a section 12A for safety.
[2024-04-21] MEDS: Gabapentin 300 MG CAPSULE PO (20:14)
[2024-04-21] MEDS: metFORMIN HCl 1,000 MG TABLET 1000 MG PO (20:14)
[2024-04-21] MEDS: Melatonin 3 MG TABLET 6 MG PO (20:16)
[2024-04-21] MEDS: Prazosin HCL 1 MG CAPSULE PO (20:16)
[2024-04-22 06:31] VITALS: BP 128/80; PULSE 74; RESP 18; TEMP 36.7; O2SAT 96
[2024-04-22 07:18] VITALS: BP 130/82; PULSE 74; RESP 14; O2SAT 97
[2024-04-22 08:27] VITALS: BP 131/86; PULSE 65; RESP 18; TEMP 36.7; O2SAT 98
[2024-04-22] MEDS: Gabapentin 300 MG CAPSULE PO ×3 (08:30→21:39)
[2024-04-22] MEDS: ARIPiprazole 5 MG TABLET PO (08:30)
[2024-04-22] MEDS: metFORMIN HCl 1,000 MG TABLET 1000 MG PO ×2 (08:30→21:39)
--- NOTE | 2024-04-22 08:30 | PC.NURSE ---
pt is alert and oriented, skin appropriate for ethnicity, respirations even and unlabored, pt denies si/hi, calm and cooperative at this time. after the pt took his metformin reports he states that he has been off the metformin for over a year-pt states that his doctor told him to stop taking it because his A1C dropped from 11 to 5, when asked why he is still picking up the medication he states that he gets it filled at the same time as his other medications and its just easier. Emily ESPARZA aware of this conversation, plan to check the pt's A1C today.
[2024-04-22 09:06] LABS: Estimated Average Glucose 114 mg/dL; Hemoglobin A1C 118.5827 umol/L; Hemoglobin A1c % 5.6 % (<6.0); Total Hemoglobin (HGBA1C) 3177.5866 umol/L
[2024-04-22 13:33] VITALS: BP 145/88; PULSE 59; RESP 18; TEMP 36.7; O2SAT 98
[2024-04-22 15:55] VITALS: BP 140/76; PULSE 64; RESP 16; TEMP 36.9; O2SAT 97
--- NOTE | 2024-04-22 19:47 | PC.NURSE ---
pt resting comfortably on the stretcher, no apparent distress, calm and cooperative at this time
[2024-04-22] MEDS: Prazosin HCL 1 MG CAPSULE PO (21:39)
[2024-04-22] MEDS: Melatonin 3 MG TABLET 6 MG PO (21:39)
[2024-04-22 21:42] VITALS: BP 127/46; PULSE 61; RESP 16; TEMP 37.1; O2SAT 97
--- NOTE | 2024-04-23 | ECG_ITS ---
Test Reason : cocaine use Blood Pressure : / mmHG Vent. Rate : 075 BPM Atrial Rate : 075 BPM P-R Int : 158 ms QRS Dur : 092 ms QT Int : 386 ms P-R-T Axes : 064 060 003 degrees QTc Int : 431 ms Normal sinus rhythm Nonspecific T wave abnormality Borderline ECG When compared with ECG of 31-MAY-2023 04:45, No significant change was found Referred By: Josr Hwang Electronically Signed By:JESSI SALAZAR
[2024-04-23 06:32] VITALS: BP 132/70; PULSE 56; RESP 16; TEMP 36.7; O2SAT 97
--- NOTE | 2024-04-23 06:58 | PC.NURSE ---
resumed care of patient, he remains resting at this time, call blount within reach 1:[address] Awaiting careteam eval at this time
[2024-04-23] MEDS: ARIPiprazole 5 MG TABLET PO (07:52)
[2024-04-23] MEDS: metFORMIN HCl 1,000 MG TABLET 1000 MG PO ×2 (07:52→21:07)
[2024-04-23] MEDS: Gabapentin 300 MG CAPSULE PO ×3 (07:52→21:08)
[2024-04-23 10:20] LABS: Appearance Urine Clear; Color Urine Yellow; Glucose Urine UA Negative (Negative); Leukocyte Esterase Urine Moderate (2+) (Negative); Nitrite Urine Negative (Negative); PH 5.5 (5.0-9.0); Specific Gravity - Urine 1.025 (1.005-1.025); UMIC TRIGGER UACC YES; Urine Blood Negative (Negative); Urine Ketones Trace mg/dL (Negative); Urine Protein Negative (Neg-Trace)
[2024-04-23 10:23] LABS: Bacteria Urine None Seen (None Seen); Hyaline Casts Urine 0-2 /LPF (0-2); RBC Urine 0-2 /HPF (0-2); Squamous Epithelial Cell Urine 0-2 /HPF (0-2); UACC Culture Trigger YES; WBC Urine 21-50 /HPF (0-5)
[2024-04-23 15:05] VITALS: BP 147/82; PULSE 75; RESP 16; TEMP 36.6; O2SAT 97
[2024-04-23] MEDS: LORazepam 1 MG TABLET PO (16:46)
[2024-04-23 20:00] VITALS: BP 136/71; PULSE 75; RESP 18; TEMP 36.4; O2SAT 97
--- NOTE | 2024-04-23 20:43 | PC.ADMIT ---
Addendum entered by Sadie Dumont RN 04/23/24 21:09: Bartolo is placed on a CIWA q4, signed a CV and a three day notice to be up on Thursday 04/26. Original Note: Bartolo Ochoa is a 43 year old Colombian speaking male who arrived to the unit after self presenting to the [facility] ED on 04/21 for SI, increased depression and heavy daily alcohol use as well as daily crack/cocaine use. Bartolo is alert and oriented. He is currently homeless, however has the support of his sister where he sometimes stays. Bartolo used alcohol and cocaine both prior to admission and this is his first inpatient psychiatric admission. Skin check was done upon admission and unremarkable. Bartolo's belongings with the exception of his underwear are in [place]. Bartolo is soft spoken and cooperative with the admission process. At this time he denies SI/HI/AVH but endorses significant depression and hopelessness. Bartolo is looking for medication maintenance and to have outpatient psych providers set up upon discharge. He has a primary care physician, is on metformin for type 2 diabetes however states that his A1c has decreased into the 5's. 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 Bartolo was polite and cooperative with the admission process, oriented to the unit and placed on 15 minute checks for safety.
[2024-04-23 21:07] VITALS: BP 136/71
[2024-04-23] MEDS: Prazosin HCL 1 MG CAPSULE PO (21:07)
[2024-04-23] MEDS: Melatonin 3 MG TABLET 6 MG PO (21:08)
[2024-04-23] MEDS: OLANZapine 5 MG TABLET PO (21:25)
[2024-04-23] MEDS: traZODone HCL 100 MG TABLET PO (21:25)
[2024-04-24 00:20] VITALS: BP 128/70; PULSE 65; RESP 12; TEMP 36.5; O2SAT 96
[2024-04-24 04:19] VITALS: BP 118/72; PULSE 58; RESP 16; TEMP 36.7; O2SAT 98
[2024-04-24 08:00] VITALS: BP 137/58; PULSE 76; RESP 18; O2SAT 97
[2024-04-24 08:22] LABS: Estimated Average Glucose 108 mg/dL; Hemoglobin A1C 121.8761 umol/L; Hemoglobin A1c % 5.4 % (<6.0); Total Hemoglobin (HGBA1C) 3427.5834 umol/L
[2024-04-24 08:27] LABS: Cholesterol 144 mg/dL (<200); HDL Cholesterol 47 mg/dL (>40); LDL Cholesterol Calculated 64 mg/dL (<100); Triglycerides 169 mg/dL (<150)
--- NOTE | 2024-04-24 08:57 | HO.PSYADMNOT ---
HPI Date of Service: 04/24/24 Chief Complaint: depresion Sources of Information: patient interviewed, chart reviewed and crisis/core team assessment reviewed HPI Subjective Notes: Ortiz Warning and Conditional Voluntary Narrative: Patient is a 43-year-old homeless male with history of depression, PTSD, alcohol/crack cocaine dependency, use disorder who presents for worsening depression and dark thoughts in the face of continued substance abuse and psychosocial stressors. Patient reports that he chronically struggles with depression which will sometimes become severe. He says alcohol and crack cocaine are used to to numb his anxiety and depression and he has been using daily and heavily for years (0.5 gal vodka daily). Patient reports accompanying AH which is mood congruent and resolves when he is sober and not depressed. Patient reports that his depression worsened this past month after his cousin he started arguing with his family. His depression worsened this past week and he reports having dark thoughts... To do crazy stuff... To do something that would make me go to senior care... And so he self presented for treatment. Patient denies any SI or history of self-harm. Denies any clear history of manic type episodes or behaviors; ongoing PTSD symptoms. Patient has never taken medications consistently since he is homeless and ends up losing his prescription. Patient however would like to try medications now. Past Psychiatric History: No history of psychiatric hospitalizations No history of SI or SA No therapeutic medication trials Medical Evaluation Reviewed: Yes [facility] Medical History (Updated 04/24/24 @ 14:06 by Mickey Lobo MD) PTSD (post-traumatic stress disorder) MDD (major depressive disorder), recurrent, severe, with psychosis Cocaine use disorder Alcohol use disorder Homeless Alcohol abuse Polysubstance abuse Family History: Mother: depressed, anxiety oldest sister: depressed, anxiety Social History: mom 3 sisters (living); 1 sister Patient is close to his sisters and keeps in contact with them Substance History: Daily alcohol, 0.5 gal vodka plus other drinks per day for years, decades Crack cocaine daily for years, decades Sober for 4 months about 3 years ago while he was at [facility] Trauma History: Reports history of trauma; does not disclose Diagnostics Vital Signs (24Hr): Vital Signs - 24 hr 04/23/24 15:05 04/23/24 20:00 04/23/24 21:07 Temperature 97.9 F 97.6 F Pulse Rate 75 75 Respiratory Rate 16 18 Blood Pressure 147/82 H 136/71 136/71 Pulse Oximetry 97 97 Oxygen Delivery Method Room Air Room Air 04/24/24 00:20 04/24/24 04:19 04/24/24 08:00 Temperature 97.7 F 98.1 F Pulse Rate 65 58 76 Respiratory Rate 12 16 18 Blood Pressure 128/70 118/72 137/58 L Pulse Oximetry 96 98 97 Oxygen Delivery Method Room Air Room Air Room Air BMI result Body Mass Index 26.0 Labs 04/21/24 05:19 04/21/24 05:19 Labs: Laboratory Results - last 48 hr 04/22/24 04/23/24 04/24/24 08:43 10:13 07:49 Estimat Average Glucose 114 108 Hemoglobin A1c % 5.6 5.4 Triglycerides 169 H Cholesterol 144 LDL Cholesterol, Calc 64 HDL Cholesterol 47 Urine Color Yellow Urine Appearance Clear Urine pH 5.5 Ur Specific [place] 1.025 Urine Protein Negative Urine Glucose (UA) Negative Urine Ketones Trace Urine Blood Negative Urine Nitrite Negative Ur Leukocyte Esterase Moderate (2+) H Urine RBC 0-2 Urine WBC 21-50 H Ur Squamous Epith Cells 0-2 Urine Bacteria None Seen Hyaline Casts 0-2 Meds/Allergies Meds Home Medications ?Medication ?Instructions ?Recorded ?Confirmed ?Type aripiprazole 5 mg tablet 5 mg PO DAILY 04/21/24 04/21/24 History chlorhexidine gluconate 4 % 1 appl topical DAILY 04/21/24 04/21/24 History topical liquid (Hibiclens) gabapentin 300 mg capsule 300 mg PO TID 04/21/24 04/21/24 History hydroxyzine HCl 25 mg tablet 25 - 50 mg PO BID PRN Anxiety 04/21/24 04/21/24 History ibuprofen 600 mg tablet 600 mg PO Q8H PRN Pain 04/21/24 04/21/24 History melatonin 5 mg tablet 5 mg PO BEDTIME 04/21/24 04/21/24 History metformin 500 mg tablet 1,000 mg PO BID 04/21/24 04/21/24 History nicotine (polacrilex) 4 mg gum 4 mg PO Q2H PRN Nicotine Cravings 04/21/24 04/21/24 History prazosin 1 mg capsule 1 mg PO BEDTIME 04/21/24 04/21/24 History trazodone 50 mg tablet 50 - 100 mg PO BEDTIME PRN Sleep 04/21/24 04/21/24 History Allergies Allergies Allergy/AdvReac Type Severity Reaction Status Date / Time No Known Allergies Allergy Verified 04/21/24 04:30 Mental Status Exam Mental Status Exam Narrative: Pt is alert and oriented; behavior is cooperative, friendly and calm; patient is not in distress; dressed in hospital attire, disheveled; mood is described as depressed and affect congruent, downcast; eye contact appropriate; Speech is normal rate, volume and prosody and not pressured; psychomotor retardation present; thought process is organized and goal directed; Thought content is on psychosocial stressors, tx; otherwise pertinent to relevant topics and without any delusional content, paranoid ideations or grandiosity; denies any SI/HI. AH, not command, mood congruent Patients insight and judgment impaired Assessment & Plan Assessment & Plan (1) MDD (major depressive disorder), recurrent, severe, with psychosis: Status: Acute Code(s): F33.3 - Major depressive disorder, recurrent, severe with psychotic symptoms (2) PTSD (post-traumatic stress disorder): Status: Acute Code(s): F43.10 - Post-traumatic stress disorder, unspecified (3) Homeless: Status: Acute Code(s): Z59.00 - Homelessness unspecified (4) Alcohol use disorder: Status: Acute Code(s): F10.90 - Alcohol use, unspecified, uncomplicated (5) Cocaine use disorder: Status: Acute Code(s): F14.10 - Cocaine abuse, uncomplicated Plan Patient is a 43-year-old homeless male with history of depression, PTSD, alcohol/crack cocaine dependency, use disorder who presents for worsening depression and dark thoughts in the face of continued substance abuse and psychosocial stressors. Patient reports that he chronically struggles with depression which will sometimes become severe. He says alcohol and crack cocaine are used to to numb his anxiety and depression and he has been using daily and heavily for years (0.5 gal vodka daily). Patient reports accompanying AH which is mood congruent and resolves when he is sober and not depressed. Patient reports that his depression worsened this past month after his cousin he started arguing with his family. His depression worsened this past week and he reports having dark thoughts... To do crazy stuff... To do something that would make me go to senior care... And so he self presented for treatment. Patient denies any SI or history of self-harm. Denies any clear history of manic type episodes or behaviors; ongoing PTSD symptoms. Patient has never taken medications consistently since he is homeless and ends up losing his prescription. Patient however would like to try medications now. Formulation/clinical reasoning History of MDD and PTSD with mood congruent AH. History of severe alcohol and cocaine abuse. Currently Patient is in mild alcohol withdrawal as he has been in the ED for several days and his last drink was about 4 days ago; still has symptoms and benefiting from gabapentin being used for withdrawal. Patient reports he was sober for about 4 months several years ago and on a helpful medication but does not know what was; discussed options and patient agrees to trial of Wellbutrin. Discussed program for sobriety and Patient says that he would like treatment however he has an urgent family matter he has to attend to this week, helping his sister with something specific (though did not disclose) and says that after that is accomplished he wants to all hardly pursue sobriety. He understands his risk of relapse. Discussed MAT's and patient is ambivalent, having been on something before that he found not that effective PLAN: CV q15min CIWA with prn Ativan Gabapentin 300mg TID for etoh w/drawal Start Wellbutrin XL 150 mg Urine culture: No growth Chlamydia/gonorrhea results pending Patient educated on: diagnosis, medication risk/benefits, substance abuse and therapeutic strategies Informed Consent: understands Reason for continued inpatient stay Substantial Risk for: stable for discharge and rapid decompensation Statement Statement: I have reviewed the history and physical and performed a pertinent examination on my patient. No changes have occurred unless specified. If the History and Physical was not performed prior to admission, the Hospitalist's service will be consulted for completing the admission physical. Time Spent With Patient Time: Total time managing care of this patient today ____ minutes.
[2024-04-24] MEDS: ARIPiprazole 5 MG TABLET PO (09:17)
[2024-04-24] MEDS: Gabapentin 300 MG CAPSULE PO ×3 (09:17→21:48)
[2024-04-24] MEDS: metFORMIN HCl 1,000 MG TABLET 1000 MG PO ×2 (09:17→21:48)
[2024-04-24] MEDS: Folic Acid 1 MG TABLET PO (09:17)
[2024-04-24] MEDS: Thiamine HCL 100 MG TABLET PO (09:17)
[2024-04-24 17:15] LABS: CT PCR NOT DETECTED (Not Detect.); NG PCR NOT DETECTED (Not Detect.)
[2024-04-24 19:48] VITALS: BP 141/85; PULSE 104; RESP 16; TEMP 37.1; O2SAT 97
[2024-04-24] MEDS: Melatonin 3 MG TABLET 6 MG PO (21:48)
[2024-04-24] MEDS: Prazosin HCL 1 MG CAPSULE PO (21:48)
[2024-04-24] MEDS: traZODone HCL 100 MG TABLET PO (21:48)
[2024-04-24] MEDS: OLANZapine 5 MG TABLET PO (21:49)
[2024-04-25 08:00] VITALS: BP 123/68; PULSE 80; RESP 18; TEMP 36.5; O2SAT 96
[2024-04-25] MEDS: Folic Acid 1 MG TABLET PO (08:10)
[2024-04-25] MEDS: buPROPion HCl XL 150 MG TAB.ER.24H PO (08:10)
[2024-04-25] MEDS: metFORMIN HCl 1,000 MG TABLET 1000 MG PO (08:10)
[2024-04-25] MEDS: Thiamine HCL 100 MG TABLET PO (08:10)
[2024-04-25] MEDS: Gabapentin 300 MG CAPSULE PO ×3 (08:10→20:28)
[2024-04-25] MEDS: ARIPiprazole 5 MG TABLET PO (08:10)
--- NOTE | 2024-04-25 09:43 | HO.PSYCHPN ---
Subjective Subjective Date of Service: 04/25/24 Reason For Visit: depresion Interim History: Met with patient; discussed with team Patient reports that he is feeling a little better. Mood is improved, no voices, and says I am not in my head is much... Patient has been rethinking his stay and would like to remain on the unit longer for treatment and said he would retract his 3 day notice. Patient still having withdrawal symptoms but says it is starting to wind down. Discussed metformin and patient says he has not been on this and over year and does not think he needs to be on it. He shared that his PCP was surprised that his hemoglobin A1c lowered despite the fact that he was not on metformin; patient reports that he has lost about 30 lb of weight which he thinks is why. Mental Status Exam Mental Status Exam Narrative: Pt is alert and oriented; behavior is cooperative, friendly and calm; patient is not in distress; dressed in hospital attire, disheveled; mood is described as depressed... Little better and affect congruent, downcast; eye contact appropriate; Speech is normal rate, volume and prosody and not pressured; psychomotor retardation present; thought process is organized and goal directed; Thought content is on psychosocial stressors, tx; otherwise pertinent to relevant topics and without any delusional content, paranoid ideations or grandiosity; denies any SI/HI. No AH Patients insight and judgment impaired but improving Diagnostics Vital Signs (24Hr): Vital Signs - 24 hr 04/24/24 19:48 04/25/24 08:00 Temperature 98.7 F 97.7 F Pulse Rate 104 H 80 Respiratory Rate 16 18 Blood Pressure 141/85 H 123/68 Pulse Oximetry 97 96 Oxygen Delivery Method Room Air Room Air BMI result Body Mass Index 26.0 Labs 04/21/24 05:19 04/21/24 05:19 Labs: Laboratory Results - last 48 hr 04/23/24 04/23/24 04/24/24 10:13 14:12 07:49 Estimat Average Glucose 108 Hemoglobin A1c % 5.4 Triglycerides 169 H Cholesterol 144 LDL Cholesterol, Calc 64 HDL Cholesterol 47 Urine Color Yellow Urine Appearance Clear Urine pH 5.5 Ur Specific [place] 1.025 Urine Protein Negative Urine Glucose (UA) Negative Urine Ketones Trace Urine Blood Negative Urine Nitrite Negative Ur Leukocyte Esterase Moderate (2+) H Urine RBC 0-2 Urine WBC 21-50 H Ur Squamous Epith Cells 0-2 Urine Bacteria None Seen Hyaline Casts 0-2 Chlam trachomat DNA PCR NOT DETECTED N.gonorrhoeae DNA (PCR) NOT DETECTED Medications Medications Current Medications Acetaminophen (Acetaminophen 325 Mg Tablet) 650 mg PO Q6H PRN PRN Reason: Headache/Pain Mild Scale (1-3) Al Hydroxide/Mg Hydroxide (Magnesium Hydrox/Alum Hydrox 30 Ml Oral.Susp) 30 ml PO Q6H PRN PRN Reason: Heartburn/Nausea Aripiprazole (Aripiprazole 5 Mg Tablet) 5 mg PO DAILY [facility] Last Admin: 04/25/24 08:10 Dose: 5 mg Bupropion HCl (Bupropion Hcl Xl 150 Mg Tab.Er.24h) 150 mg PO DAILY [facility] Last Admin: 04/25/24 08:10 Dose: 150 mg Folic Acid (Folic Acid 1 Mg Tablet) 1 mg PO DAILY [facility] Last Admin: 04/25/24 08:10 Dose: 1 mg Gabapentin (Gabapentin 300 Mg Capsule) 300 mg PO TID [facility] Last Admin: 04/25/24 08:10 Dose: 300 mg Hydroxyzine HCl (Hydroxyzine Hcl 50 Mg Tablet) 50 mg PO BID PRN PRN Reason: Anxiety Ibuprofen (Ibuprofen 600 Mg Tablet) 600 mg PO Q8H PRN PRN Reason: Pain, Moderate(Pain Scale 4-6) Lorazepam (Lorazepam 1 Mg Tablet) 1 mg PO Q2H PRN PRN Reason: CIWA 6-10 Last Admin: 04/23/24 16:46 Dose: 1 mg Lorazepam (Lorazepam 1 Mg Tablet) 2 mg PO Q2H PRN PRN Reason: CIWA 11 and above Magnesium Hydroxide (Milk Of Magnesia 30 Ml Oral.Susp) 30 ml PO DAILY PRN PRN Reason: Constipation Melatonin (Melatonin 3 Mg Tablet) 6 mg PO BEDTIME [facility] Last Admin: 04/24/24 21:48 Dose: 6 mg Metformin HCl (Metformin Hcl 1,000 Mg Tablet) 1,000 mg PO BID [facility] Last Admin: 04/25/24 08:10 Dose: 1,000 mg Nicotine (Nicotine 21 Mg Patch.Td24) 21 mg TRANSDERMA DAILY PRN PRN Reason: smoking cessation Nicotine Polacrilex (Nicotine Polacrilex 2 Mg Gum) 4 mg BUCCAL Q2H PRN PRN Reason: Nicotine Cravings Olanzapine (Olanzapine 5 Mg Tablet) 5 mg PO TID PRN PRN Reason: agitation Last Admin: 04/24/24 21:49 Dose: 5 mg Prazosin HCl (Prazosin Hcl 1 Mg Capsule) 1 mg PO BEDTIME [facility]; Protocol Last Admin: 04/24/24 21:48 Dose: 1 mg Thiamine HCl (Thiamine Hcl 100 Mg Tablet) 100 mg PO DAILY [facility] Last Admin: 04/25/24 08:10 Dose: 100 mg Trazodone HCl (Trazodone Hcl 100 Mg Tablet) 100 mg PO BEDTIME PRN PRN Reason: Sleep Last Admin: 04/24/24 21:48 Dose: 100 mg Allergies Allergies Allergy/AdvReac Type Severity Reaction Status Date / Time No Known Allergies Allergy Verified 04/21/24 04:30 Assessment & Plan Assessment & Plan (1) MDD (major depressive disorder), recurrent, severe, with psychosis: Status: Acute Code(s): F33.3 - Major depressive disorder, recurrent, severe with psychotic symptoms (2) PTSD (post-traumatic stress disorder): Status: Acute Code(s): F43.10 - Post-traumatic stress disorder, unspecified (3) Homeless: Status: Acute Code(s): Z59.00 - Homelessness unspecified (4) Alcohol use disorder: Status: Acute Code(s): F10.90 - Alcohol use, unspecified, uncomplicated (5) Cocaine use disorder: Status: Acute Code(s): F14.10 - Cocaine abuse, uncomplicated Plan Patient is a 43-year-old homeless male with history of depression, PTSD, alcohol/crack cocaine dependency, use disorder who presents for worsening depression and dark thoughts in the face of continued substance abuse and psychosocial stressors. Patient reports that he chronically struggles with depression which will sometimes become severe. He says alcohol and crack cocaine are used to to numb his anxiety and depression and he has been using daily and heavily for years (0.5 gal vodka daily). Patient reports accompanying AH which is mood congruent and resolves when he is sober and not depressed. Patient reports that his depression worsened this past month after his cousin he started arguing with his family. His depression worsened this past week and he reports having dark thoughts... To do crazy stuff... To do something that would make me go to group home... And so he self presented for treatment. Patient denies any SI or history of self-harm. Denies any clear history of manic type episodes or behaviors; ongoing PTSD symptoms. Patient has never taken medications consistently since he is homeless and ends up losing his prescription. Patient however would like to try medications now. Formulation/clinical reasoning History of MDD and PTSD with mood congruent AH. History of severe alcohol and cocaine abuse. Currently Patient is in mild alcohol withdrawal as he has been in the ED for several days and his last drink was about 4 days ago; still has symptoms and benefiting from gabapentin being used for withdrawal. Patient reports he was sober for about 4 months several years ago and on a helpful medication but does not know what was; discussed options and patient agrees to trial of Wellbutrin. Discussed program for sobriety and Patient says that he would like treatment however he has an urgent family matter he has to attend to this week, helping his sister with something specific (though did not disclose) and says that after that is accomplished he wants to all hardly pursue sobriety. He understands his risk of relapse. Discussed MAT's and patient is ambivalent, having been on something before that he found not that effective Hospital course: 04/25 patient says mood is a little better; AH resolved. Still in some withdrawal but that is also getting better. Said he had retract his 3 day notice and wants to stay longer. Discussed medication and patient is open to further titrating Wellbutrin. Discussed metformin and patient says he has not been on metformin for over year and blood sugars have improved anyway, hemoglobin A1c down to 5.4. Discussed with his PCP said he does not need to be on metformin anymore and patient would like a DC PLAN: 3 day q15min DC CIWA; patient not scoring Continue Gabapentin 300mg TID for etoh w/drawal; will likely taper soon Continue Wellbutrin XL 150 mg; will titrate DC metformin; patient has not been on in quite a while and A1c 5.4 Urine culture: No growth Chlamydia/gonorrhea negative Patient educated on: diagnosis, medication risk/benefits, substance abuse, therapeutic strategies and medical condition Informed Consent: understands Reason for continued inpatient stay Substantial Risk for: rapid decompensation Time Spent With Patient Time: Total time managing care of this patient today ____ minutes.
--- NOTE | 2024-04-25 12:57 | PC.NURSE ---
04/25/24 retracted 3 day. 04/25/24 signed 3 day , up on 04/30/24
[2024-04-25 20:00] VITALS: BP 147/82; PULSE 83; TEMP 36.4; O2SAT 96
[2024-04-25] MEDS: Melatonin 3 MG TABLET 6 MG PO (20:28)
[2024-04-25] MEDS: traZODone HCL 100 MG TABLET PO (20:28)
[2024-04-25] MEDS: Prazosin HCL 1 MG CAPSULE PO (20:28)
[2024-04-26 08:00] VITALS: BP 115/74; PULSE 100; RESP 16; TEMP 36.4; O2SAT 96
[2024-04-26] MEDS: Gabapentin 300 MG CAPSULE PO ×3 (09:19→21:16)
[2024-04-26] MEDS: ARIPiprazole 5 MG TABLET PO (09:19)
[2024-04-26] MEDS: buPROPion HCl XL 150 MG TAB.ER.24H PO (09:19)
[2024-04-26] MEDS: Folic Acid 1 MG TABLET PO (09:19)
[2024-04-26] MEDS: Thiamine HCL 100 MG TABLET PO (09:19)
--- NOTE | 2024-04-26 10:33 | P.PNPSI_ITS ---
Subjective Subjective Date of Service: 04/26/24 Reason For Visit: depresion Interim History: Met with patient; discussed with team still depressed but overall feeling better; would like Wellbutrin increased. Struggles w/ insomnia, but understands lot of variables contributing including detoxing from significant hx of substance abuse. Pt feels w/ drawal coming to an end. Thankful for help received. No AVH. Mental Status Exam Mental Status Exam Narrative: Pt is alert and oriented; behavior is cooperative, friendly and calm; patient is not in distress; dressed in hospital attire, disheveled; mood is described as depressed... Little better and affect congruent, downcast; eye contact appropriate; Speech is normal rate, volume and prosody and not pressured; psychomotor retardation present; thought process is organized and goal directed; Thought content is on psychosocial stressors, tx; otherwise pertinent to relevant topics and without any delusional content, paranoid ideations or grandiosity; denies any SI/HI. No AH Patients insight and judgment fair. Diagnostics Vital Signs (24Hr): Vital Signs - 24 hr 04/25/24 20:00 04/26/24 08:00 Temperature 97.6 F 97.6 F Pulse Rate 83 100 Respiratory Rate 16 Blood Pressure 147/82 H 115/74 Pulse Oximetry 96 96 Oxygen Delivery Method Room Air Room Air BMI result Body Mass Index 26.0 Labs 04/21/24 05:19 04/21/24 05:19 Labs: Laboratory Results - last 48 hr 04/23/24 14:12 Chlam trachomat DNA PCR NOT DETECTED N.gonorrhoeae DNA (PCR) NOT DETECTED Medications Medications Current Medications Acetaminophen (Acetaminophen 325 Mg Tablet) 650 mg PO Q6H PRN PRN Reason: Headache/Pain Mild Scale (1-3) Al Hydroxide/Mg Hydroxide (Magnesium Hydrox/Alum Hydrox 30 Ml Oral.Susp) 30 ml PO Q6H PRN PRN Reason: Heartburn/Nausea Aripiprazole (Aripiprazole 5 Mg Tablet) 5 mg PO DAILY [facility] Last Admin: 04/26/24 09:19 Dose: 5 mg Bupropion HCl (Bupropion Hcl Xl 150 Mg Tab.Er.24h) 150 mg PO DAILY [facility] Last Admin: 04/26/24 09:19 Dose: 150 mg Folic Acid (Folic Acid 1 Mg Tablet) 1 mg PO DAILY [facility] Last Admin: 10/18/24 09:19 Dose: 1 mg Gabapentin (Gabapentin 300 Mg Capsule) 300 mg PO TID [facility] Last Admin: 04/26/24 09:19 Dose: 300 mg Hydroxyzine HCl (Hydroxyzine Hcl 50 Mg Tablet) 50 mg PO BID PRN PRN Reason: Anxiety Ibuprofen (Ibuprofen 600 Mg Tablet) 600 mg PO Q8H PRN PRN Reason: Pain, Moderate(Pain Scale 4-6) Magnesium Hydroxide (Milk Of Magnesia 30 Ml Oral.Susp) 30 ml PO DAILY PRN PRN Reason: Constipation Melatonin (Melatonin 3 Mg Tablet) 6 mg PO BEDTIME [facility] Last Admin: 04/25/24 20:28 Dose: 6 mg Nicotine (Nicotine 21 Mg Patch.Td24) 21 mg TRANSDERMA DAILY PRN PRN Reason: smoking cessation Nicotine Polacrilex (Nicotine Polacrilex 2 Mg Gum) 4 mg BUCCAL Q2H PRN PRN Reason: Nicotine Cravings Olanzapine (Olanzapine 5 Mg Tablet) 5 mg PO TID PRN PRN Reason: agitation Last Admin: 04/24/24 21:49 Dose: 5 mg Prazosin HCl (Prazosin Hcl 1 Mg Capsule) 1 mg PO BEDTIME [facility]; Protocol Last Admin: 04/25/24 20:28 Dose: 1 mg Thiamine HCl (Thiamine Hcl 100 Mg Tablet) 100 mg PO DAILY [facility] Last Admin: 04/26/24 09:19 Dose: 100 mg Trazodone HCl (Trazodone Hcl 100 Mg Tablet) 100 mg PO BEDTIME PRN PRN Reason: Sleep Last Admin: 04/25/24 20:28 Dose: 100 mg Allergies Allergies Allergy/AdvReac Type Severity Reaction Status Date / Time No Known Allergies Allergy Verified 04/21/24 04:30 Assessment & Plan Assessment & Plan (1) MDD (major depressive disorder), recurrent, severe, with psychosis: Status: Acute Code(s): F33.3 - Major depressive disorder, recurrent, severe with psychotic symptoms (2) PTSD (post-traumatic stress disorder): Status: Acute Code(s): F43.10 - Post-traumatic stress disorder, unspecified (3) Homeless: Status: Acute Code(s): Z59.00 - Homelessness unspecified (4) Alcohol use disorder: Status: Acute Code(s): F10.90 - Alcohol use, unspecified, uncomplicated (5) Cocaine use disorder: Status: Acute Code(s): F14.10 - Cocaine abuse, uncomplicated Plan Patient is a 43-year-old homeless male with history of depression, PTSD, alcohol/crack cocaine dependency, use disorder who presents for worsening depression and dark thoughts in the face of continued substance abuse and psychosocial stressors. Patient reports that he chronically struggles with depression which will sometimes become severe. He says alcohol and crack cocaine are used to to numb his anxiety and depression and he has been using daily and heavily for years (0.5 gal vodka daily). Patient reports accompanying AH which is mood congruent and resolves when he is sober and not depressed. Patient reports that his depression worsened this past month after his cousin he started arguing with his family. His depression worsened this past week and he reports having dark thoughts... To do crazy stuff... To do something that would make me go to prison... And so he self presented for treatment. Patient denies any SI or history of self-harm. Denies any clear history of manic type episodes or behaviors; ongoing PTSD symptoms. Patient has never taken medications consistently since he is homeless and ends up losing his prescription. Patient however would like to try medications now. Formulation/clinical reasoning History of MDD and PTSD with mood congruent AH. History of severe alcohol and cocaine abuse. Currently Patient is in mild alcohol withdrawal as he has been in the ED for several days and his last drink was about 4 days ago; still has symptoms and benefiting from gabapentin being used for withdrawal. Patient reports he was sober for about 4 months several years ago and on a helpful medication but does not know what was; discussed options and patient agrees to trial of Wellbutrin. Discussed program for sobriety and Patient says that he would like treatment however he has an urgent family matter he has to attend to this week, helping his sister with something specific (though did not disclose) and says that after that is accomplished he wants to all hardly pursue sobriety. He understands his risk of relapse. Discussed MAT's and patient is ambivalent, having been on something before that he found not that effective Hospital course: 04/25 patient says mood is a little better; AH resolved. Still in some withdrawal but that is also getting better. Said he had retract his 3 day notice and wants to stay longer. Discussed medication and patient is open to further titrating Wellbutrin. Discussed metformin and patient says he has not been on metformin for over year and blood sugars have improved anyway, hemoglobin A1c down to 5.4. Discussed with his PCP said he does not need to be on metformin anymore and patient would like a DC 04/26 still depressed but overall feeling better; would like Wellbutrin increased. Struggles w/ insomnia, but understands lot of variables contributing including detoxing from significant hx of substance abuse. Pt feels w/ drawal coming to an end. Thankful for help received. No AVH. PLAN: 3 day q15min DC CIWA; patient not scoring Will taper Gabapentin Increase to Wellbutrin XL 300 mg; dc abilify; not indicated DC metformin; patient has not been on in quite a while and A1c 5.4 Urine culture: No growth Chlamydia/gonorrhea negative Patient educated on: diagnosis, medication risk/benefits, substance abuse and therapeutic strategies Informed Consent: understands Reason for continued inpatient stay Substantial Risk for: rapid decompensation Time Spent With Patient Time: Total time managing care of this patient today ____ minutes.
[2024-04-26 20:00] VITALS: BP 128/74; PULSE 104; RESP 16; TEMP 36.7; O2SAT 98
[2024-04-26] MEDS: Melatonin 3 MG TABLET 6 MG PO (21:16)
[2024-04-26] MEDS: traZODone HCL 100 MG TABLET PO (21:16)
[2024-04-26 21:19] VITALS: BP 128/74
[2024-04-26] MEDS: Prazosin HCL 1 MG CAPSULE PO (21:19)
[2024-04-26] MEDS: Acetaminophen 325 MG TABLET 650 MG PO (21:22)
--- NOTE | 2024-04-27 08:57 | P.PNPSI_ITS ---
Documented by User: Caroline Flores, VOLUNTEER ASSISTANT 04/27/24 19:31 Subjective Subjective Date of Service: 04/27/24 Reason For Visit: depresion Interim History: Pt visable in milieu with some isolation noted. No questions or current concerns about his plan of care Team reports no current concerns about his progress Medication Compliance: Yes Review of Systems Review of Systems Yes all other systems are reviewed and are negative Mental Status Exam Mental Status Exam Patient Appearance: Appropriate Patient Orientation: Person, Place and Situation Level of Consciousness: Alert Patient Behavior: Appropriate Mood Description: Constricted Affect Description: Constricted Ability to Follow Directions: Good Speech Pattern: Spontaneous Speech Judgement: Fair Diagnostics Vital Signs (24Hr): Vital Signs - 24 hr 04/26/24 20:00 04/26/24 21:19 Temperature 98.1 F Pulse Rate 104 H Respiratory Rate 16 Blood Pressure 128/74 128/74 Pulse Oximetry 98 Oxygen Delivery Method Room Air BMI result Body Mass Index 26.0 Labs 04/21/24 05:19 04/28/24 08:29 Medications Medications Current Medications Acetaminophen (Acetaminophen 325 Mg Tablet) 650 mg PO Q6H PRN PRN Reason: Headache/Pain Mild Scale (1-3) Last Admin: 04/26/24 21:22 Dose: 650 mg Al Hydroxide/Mg Hydroxide (Magnesium Hydrox/Alum Hydrox 30 Ml Oral.Susp) 30 ml PO Q6H PRN PRN Reason: Heartburn/Nausea Aripiprazole (Aripiprazole 5 Mg Tablet) 5 mg PO DAILY [facility] Last Admin: 04/26/24 09:19 Dose: 5 mg Bupropion HCl (Bupropion Hcl Xl 150 Mg Tab.Er.24h) 150 mg PO DAILY [facility] Last Admin: 04/26/24 09:19 Dose: 150 mg Folic Acid (Folic Acid 1 Mg Tablet) 1 mg PO DAILY [facility] Last Admin: 04/26/24 09:19 Dose: 1 mg Gabapentin (Gabapentin 300 Mg Capsule) 300 mg PO TID [facility] Last Admin: 04/26/24 21:16 Dose: 300 mg Hydroxyzine HCl (Hydroxyzine Hcl 50 Mg Tablet) 50 mg PO BID PRN PRN Reason: Anxiety Ibuprofen (Ibuprofen 600 Mg Tablet) 600 mg PO Q8H PRN PRN Reason: Pain, Moderate(Pain Scale 4-6) Magnesium Hydroxide (Milk Of Magnesia 30 Ml Oral.Susp) 30 ml PO DAILY PRN PRN Reason: Constipation Melatonin (Melatonin 3 Mg Tablet) 6 mg PO BEDTIME [facility] Last Admin: 04/26/24 21:16 Dose: 6 mg Nicotine (Nicotine 21 Mg Patch.Td24) 21 mg TRANSDERMA DAILY PRN PRN Reason: smoking cessation Nicotine Polacrilex (Nicotine Polacrilex 2 Mg Gum) 4 mg BUCCAL Q2H PRN PRN Reason: Nicotine Cravings Olanzapine (Olanzapine 5 Mg Tablet) 5 mg PO TID PRN PRN Reason: agitation Last Admin: 04/24/24 21:49 Dose: 5 mg Prazosin HCl (Prazosin Hcl 1 Mg Capsule) 1 mg PO BEDTIME [facility]; Protocol Last Admin: 04/26/24 21:19 Dose: 1 mg Thiamine HCl (Thiamine Hcl 100 Mg Tablet) 100 mg PO DAILY [facility] Last Admin: 04/26/24 09:19 Dose: 100 mg Trazodone HCl (Trazodone Hcl 100 Mg Tablet) 100 mg PO BEDTIME PRN PRN Reason: Sleep Last Admin: 04/26/24 21:16 Dose: 100 mg Allergies Allergies Allergy/AdvReac Type Severity Reaction Status Date / Time No Known Allergies Allergy Verified 04/21/24 04:30 Assessment & Plan Assessment & Plan (1) MDD (major depressive disorder), recurrent, severe, with psychosis: Status: Acute Code(s): F33.3 - Major depressive disorder, recurrent, severe with psychotic symptoms (2) PTSD (post-traumatic stress disorder): Status: Acute Code(s): F43.10 - Post-traumatic stress disorder, unspecified (3) Homeless: Status: Acute Code(s): Z59.00 - Homelessness unspecified (4) Alcohol use disorder: Status: Acute Code(s): F10.90 - Alcohol use, unspecified, uncomplicated (5) Cocaine use disorder: Status: Acute Code(s): F14.10 - Cocaine abuse, uncomplicated Plan Patient is a 43-year-old homeless male with history of depression, PTSD, alcohol/crack cocaine dependency, use disorder who presents for worsening depression and dark thoughts in the face of continued substance abuse and psychosocial stressors. Patient reports that he chronically struggles with depression which will sometimes become severe. He says alcohol and crack cocaine are used to to numb his anxiety and depression and he has been using daily and heavily for years (0.5 gal vodka daily). Patient reports accompanying AH which is mood congruent and resolves when he is sober and not depressed. Patient reports that his depression worsened this past month after his cousin he started arguing with his family. His depression worsened this past week and he reports having dark thoughts... To do crazy stuff... To do something that would make me go to retirement... And so he self presented for treatment. Patient denies any SI or history of self-harm. Denies any clear history of manic type episodes or behaviors; ongoing PTSD symptoms. Patient has never taken medications consistently since he is homeless and ends up losing his prescription. Patient however would like to try medications now. Formulation/clinical reasoning History of MDD and PTSD with mood congruent AH. History of severe alcohol and cocaine abuse. Currently Patient is in mild alcohol withdrawal as he has been in the ED for several days and his last drink was about 4 days ago; still has symptoms and benefiting from gabapentin being used for withdrawal. Patient reports he was sober for about 4 months several years ago and on a helpful medication but does not know what was; discussed options and patient agrees to trial of Wellbutrin. Discussed program for sobriety and Patient says that he would like treatment however he has an urgent family matter he has to attend to this week, helping his sister with something specific (though did not disclose) and says that after that is accomplished he wants to all hardly pursue sobriety. He understands his risk of relapse. Discussed MAT's and patient is ambivalent, having been on something before that he found not that effective Hospital course: 04/25 patient says mood is a little better; AH resolved. Still in some withdrawal but that is also getting better. Said he had retract his 3 day notice and wants to stay longer. Discussed medication and patient is open to further titrating Wellbutrin. Discussed metformin and patient says he has not been on metformin for over year and blood sugars have improved anyway, hemoglobin A1c down to 5.4. Discussed with his PCP said he does not need to be on metformin anymore and patient would like a DC 04/26 still depressed but overall feeling better; would like Wellbutrin increased. Struggles w/ insomnia, but understands lot of variables contributing including detoxing from significant hx of substance abuse. Pt feels w/ drawal coming to an end. Thankful for help received. No AVH. 04/27: Continue tx. PLAN: 3 day q15min DC CIWA; patient not scoring Will taper Gabapentin Increase to Wellbutrin XL 300 mg; dc abilify; not indicated DC metformin; patient has not been on in quite a while and A1c 5.4 Urine culture: No growth Chlamydia/gonorrhea negative Reason for continued inpatient stay Substantial Risk for: rapid decompensation Time Spent With Patient Time: Total time managing care of this patient today ____ minutes. Documented by User: Mickey Lobo MD 04/29/24 09:51 Subjective Subjective Reason For Visit: depresion Diagnostics Labs 04/21/24 05:19 04/28/24 08:29 Assessment & Plan Assessment & Plan (1) MDD (major depressive disorder), recurrent, severe, with psychosis: Status: Acute Code(s): F33.3 - Major depressive disorder, recurrent, severe with psychotic symptoms (2) PTSD (post-traumatic stress disorder): Status: Acute Code(s): F43.10 - Post-traumatic stress disorder, unspecified (3) Homeless: Status: Acute Code(s): Z59.00 - Homelessness unspecified (4) Alcohol use disorder: Status: Acute Code(s): F10.90 - Alcohol use, unspecified, uncomplicated (5) Cocaine use disorder: Status: Acute Code(s): F14.10 - Cocaine abuse, uncomplicated Plan Patient is a 43-year-old homeless male with history of depression, PTSD, alcohol/crack cocaine dependency, use disorder who presents for worsening depression and dark thoughts in the face of continued substance abuse and psychosocial stressors. Patient reports that he chronically struggles with depression which will sometimes become severe. He says alcohol and crack cocaine are used to to numb his anxiety and depression and he has been using daily and heavily for years (0.5 gal vodka daily). Patient reports accompanying AH which is mood congruent and resolves when he is sober and not depressed. Patient reports that his depression worsened this past month after his cousin he started arguing with his family. His depression worsened this past week and he reports having dark thoughts... To do crazy stuff... To do something that would make me go to retirement... And so he self presented for treatment. Patient denies any SI or history of self-harm. Denies any clear history of manic type episodes or behaviors; ongoing PTSD symptoms. Patient has never taken medications consistently since he is homeless and ends up losing his prescription. Patient however would like to try medications now. Formulation/clinical reasoning History of MDD and PTSD with mood congruent AH. History of severe alcohol and cocaine abuse. Currently Patient is in mild alcohol withdrawal as he has been in the ED for several days and his last drink was about 4 days ago; still has symptoms and benefiting from gabapentin being used for withdrawal. Patient reports he was sober for about 4 months several years ago and on a helpful medication but does not know what was; discussed options and patient agrees to trial of Wellbutrin. Discussed program for sobriety and Patient says that he would like treatment however he has an urgent family matter he has to attend to this week, helping his sister with something specific (though did not disclose) and says that after that is accomplished he wants to all hardly pursue sobriety. He understands his risk of relapse. Discussed MAT's and patient is ambivalent, having been on something before that he found not that effective Hospital course: 04/25 patient says mood is a little better; AH resolved. Still in some withdrawal but that is also getting better. Said he had retract his 3 day notice and wants to stay longer. Discussed medication and patient is open to further titrating Wellbutrin. Discussed metformin and patient says he has not been on metformin for over year and blood sugars have improved anyway, hemoglobin A1c down to 5.4. Discussed with his PCP said he does not need to be on metformin anymore and patient would like a DC 04/26 still depressed but overall feeling better; would like Wellbutrin increased. Struggles w/ insomnia, but understands lot of variables contributing including detoxing from significant hx of substance abuse. Pt feels w/ drawal coming to an end. Thankful for help received. No AVH. PLAN: 3 day q15min DC [facility]; patient not scoring Will taper Gabapentin Increase to Wellbutrin XL 300 mg; dc abilify; not indicated DC metformin; patient has not been on in quite a while and A1c 5.4 Urine culture: No growth Chlamydia/gonorrhea negative
[2024-04-27 09:23] VITALS: BP 142/67; PULSE 84; TEMP 37.1; O2SAT 98
[2024-04-27] MEDS: Gabapentin 300 MG CAPSULE PO ×3 (09:38→21:07)
[2024-04-27] MEDS: buPROPion HCl XL 150 MG TAB.ER.24H PO ×2 (09:38→10:59)
[2024-04-27] MEDS: Thiamine HCL 100 MG TABLET PO (09:38)
[2024-04-27] MEDS: Folic Acid 1 MG TABLET PO (09:38)
[2024-04-27] MEDS: ARIPiprazole 5 MG TABLET PO (09:38)
[2024-04-27 20:00] VITALS: BP 152/86; PULSE 91; TEMP 37.2; O2SAT 98
[2024-04-27] MEDS: traZODone HCL 100 MG TABLET PO (21:07)
[2024-04-27] MEDS: Melatonin 3 MG TABLET 6 MG PO (21:07)
[2024-04-27] MEDS: Prazosin HCL 1 MG CAPSULE PO (21:07)
[2024-04-28 08:00] VITALS: BP 141/84; PULSE 100; RESP 14; TEMP 37.1; O2SAT 99
[2024-04-28] MEDS: buPROPion HCl XL 300 MG TAB.ER.24H PO (08:25)
[2024-04-28] MEDS: Folic Acid 1 MG TABLET PO (08:25)
[2024-04-28] MEDS: Thiamine HCL 100 MG TABLET PO (08:25)
[2024-04-28] MEDS: Gabapentin 300 MG CAPSULE PO ×2 (08:25→21:37)
[2024-04-28 08:56] LABS: Creatinine Clr Calc Pharmacy 72.9; Estimated Glomerular Filt Rate > 60
--- NOTE | 2024-04-28 09:06 | HO.PSYCHPN ---
Subjective Subjective Date of Service: 04/28/24 Reason For Visit: depresion Interim History: Pt asked to meet today. He reports that he has been having increased nightmares. We discussed a trial of increase of Prazosin which he is in agreement with. Pt discussed upcoming discharge for 04/30. He discussed his concerns with bromhidrosis and the need for prescription surgical scrub, peroxide wash and antibacterial products for skin care. Encouraged to discuss prescribing these upon discharge with primary provider. Reports he feels the med regime is beginning to take effect and his anxiety is better managed. Medication Compliance: Yes Side effects from medications: No Attending Groups: Intermittent Review of Systems Acute medical concerns: No Medical Review of Systems: unchanged Review of Systems Review of Systems Discussed bromhidrosis sx and treatment Mental Status Exam Mental Status Exam Patient Appearance: Appropriate Patient Orientation: Person, Place and Situation Level of Consciousness: Alert Patient Behavior: Appropriate Mood Description: Constricted Affect Description: Constricted Ability to Follow Directions: Good Speech Pattern: Spontaneous Speech Judgement: Fair Diagnostics Vital Signs (24Hr): Vital Signs - 24 hr 04/27/24 09:23 04/27/24 20:00 04/28/24 08:00 Temperature 98.7 F 99.0 F 98.7 F Pulse Rate 84 91 100 Respiratory Rate 14 Blood Pressure 142/67 H 152/86 H 141/84 H Pulse Oximetry 98 98 99 Oxygen Delivery Method Room Air Room Air Room Air BMI result Body Mass Index 26.0 Labs 04/21/24 05:19 04/28/24 08:29 Labs: Laboratory Results - last 48 hr 04/28/24 04/28/24 08:21 08:29 Hold Purple Top SEE NOTE Creatinine 1.19 Estim Creat Clear Calc 72.9 Estimated GFR > 60 Hold Yellow Top See Note Medications Medications Current Medications Acetaminophen (Acetaminophen 325 Mg Tablet) 650 mg PO Q6H PRN PRN Reason: Headache/Pain Mild Scale (1-3) Last Admin: 04/26/24 21:22 Dose: 650 mg Al Hydroxide/Mg Hydroxide (Magnesium Hydrox/Alum Hydrox 30 Ml Oral.Susp) 30 ml PO Q6H PRN PRN Reason: Heartburn/Nausea Bupropion HCl (Bupropion Hcl Xl 300 Mg Tab.Er.24h) 300 mg PO DAILY [facility] Last Admin: 04/28/24 08:25 Dose: 300 mg Clonidine HCl (Clonidine Hcl 0.1 Mg Tablet) 0.1 mg PO Q4H PRN; Protocol PRN Reason: anxiety; insomnia Folic Acid (Folic Acid 1 Mg Tablet) 1 mg PO DAILY [facility] Last Admin: 04/28/24 08:25 Dose: 1 mg Gabapentin (Gabapentin 300 Mg Capsule) 300 mg PO BID [facility] Last Admin: 04/28/24 08:25 Dose: 300 mg Hydroxyzine HCl (Hydroxyzine Hcl 50 Mg Tablet) 50 mg PO BID PRN PRN Reason: Anxiety Ibuprofen (Ibuprofen 600 Mg Tablet) 600 mg PO Q8H PRN PRN Reason: Pain, Moderate(Pain Scale 4-6) Magnesium Hydroxide (Milk Of Magnesia 30 Ml Oral.Susp) 30 ml PO DAILY PRN PRN Reason: Constipation Melatonin (Melatonin 3 Mg Tablet) 6 mg PO BEDTIME [facility] Last Admin: 04/27/24 21:07 Dose: 6 mg Nicotine (Nicotine 21 Mg Patch.Td24) 21 mg TRANSDERMA DAILY PRN PRN Reason: smoking cessation Nicotine Polacrilex (Nicotine Polacrilex 2 Mg Gum) 4 mg BUCCAL Q2H PRN PRN Reason: Nicotine Cravings Prazosin HCl (Prazosin Hcl 1 Mg Capsule) 1 mg PO BEDTIME [facility]; Protocol Last Admin: 04/27/24 21:07 Dose: 1 mg Thiamine HCl (Thiamine Hcl 100 Mg Tablet) 100 mg PO DAILY [facility] Last Admin: 04/28/24 08:25 Dose: 100 mg Trazodone HCl (Trazodone Hcl 100 Mg Tablet) 100 mg PO BEDTIME PRN PRN Reason: Sleep Last Admin: 04/27/24 21:07 Dose: 100 mg Allergies Allergies Allergy/AdvReac Type Severity Reaction Status Date / Time No Known Allergies Allergy Verified 04/21/24 04:30 Assessment & Plan Assessment & Plan (1) MDD (major depressive disorder), recurrent, severe, with psychosis: Status: Acute Code(s): F33.3 - Major depressive disorder, recurrent, severe with psychotic symptoms (2) PTSD (post-traumatic stress disorder): Status: Acute Code(s): F43.10 - Post-traumatic stress disorder, unspecified (3) Homeless: Status: Acute Code(s): Z59.00 - Homelessness unspecified (4) Alcohol use disorder: Status: Acute Code(s): F10.90 - Alcohol use, unspecified, uncomplicated (5) Cocaine use disorder: Status: Acute Code(s): F14.10 - Cocaine abuse, uncomplicated Plan Patient is a 43-year-old homeless male with history of depression, PTSD, alcohol/crack cocaine dependency, use disorder who presents for worsening depression and dark thoughts in the face of continued substance abuse and psychosocial stressors. Patient reports that he chronically struggles with depression which will sometimes become severe. He says alcohol and crack cocaine are used to to numb his anxiety and depression and he has been using daily and heavily for years (0.5 gal vodka daily). Patient reports accompanying AH which is mood congruent and resolves when he is sober and not depressed. Patient reports that his depression worsened this past month after his cousin he started arguing with his family. His depression worsened this past week and he reports having dark thoughts... To do crazy stuff... To do something that would make me go to [facility]... And so he self presented for treatment. Patient denies any SI or history of self-harm. Denies any clear history of manic type episodes or behaviors; ongoing PTSD symptoms. Patient has never taken medications consistently since he is homeless and ends up losing his prescription. Patient however would like to try medications now. Formulation/clinical reasoning History of MDD and PTSD with mood congruent AH. History of severe alcohol and cocaine abuse. Currently Patient is in mild alcohol withdrawal as he has been in the ED for several days and his last drink was about 4 days ago; still has symptoms and benefiting from gabapentin being used for withdrawal. Patient reports he was sober for about 4 months several years ago and on a helpful medication but does not know what was; discussed options and patient agrees to trial of Wellbutrin. Discussed program for sobriety and Patient says that he would like treatment however he has an urgent family matter he has to attend to this week, helping his sister with something specific (though did not disclose) and says that after that is accomplished he wants to all hardly pursue sobriety. He understands his risk of relapse. Discussed MAT's and patient is ambivalent, having been on something before that he found not that effective Hospital course: 04/25 patient says mood is a little better; AH resolved. Still in some withdrawal but that is also getting better. Said he had retract his 3 day notice and wants to stay longer. Discussed medication and patient is open to further titrating Wellbutrin. Discussed metformin and patient says he has not been on metformin for over year and blood sugars have improved anyway, hemoglobin A1c down to 5.4. Discussed with his PCP said he does not need to be on metformin anymore and patient would like a DC 04/26 still depressed but overall feeling better; would like Wellbutrin increased. Struggles w/ insomnia, but understands lot of variables contributing including detoxing from significant hx of substance abuse. Pt feels w/ drawal coming to an end. Thankful for help received. No AVH. 04/27: Continue tx. 04/28: Continue tx. PLAN: 3 day q15min DC [facility]; patient not scoring Will taper Gabapentin Increase to Wellbutrin XL 300 mg; dc abilify; not indicated DC metformin; patient has not been on in quite a while and A1c 5.4 Urine culture: No growth Chlamydia/gonorrhea negative Reason for continued inpatient stay Substantial Risk for: rapid decompensation Time Spent With Patient Time: Total time managing care of this patient today ____ minutes.
[2024-04-28 20:00] VITALS: BP 183/90; PULSE 101; TEMP 36.4; O2SAT 99
[2024-04-28 21:35] VITALS: BP 139/79; PULSE 85; TEMP 37.4
[2024-04-28] MEDS: Prazosin HCL 1 MG CAPSULE 2 MG PO (21:35)
[2024-04-28 21:36] VITALS: BP 139/74
[2024-04-28] MEDS: cloNIDine HCL 0.1 MG TABLET PO (21:36)
[2024-04-28] MEDS: hydrOXYzine HCL 50 MG TABLET PO (21:37)
[2024-04-28] MEDS: Melatonin 3 MG TABLET 6 MG PO (21:37)
[2024-04-29] MEDS: Thiamine HCL 100 MG TABLET PO (09:26)
[2024-04-29] MEDS: Gabapentin 300 MG CAPSULE PO ×2 (09:27→22:12)
[2024-04-29] MEDS: buPROPion HCl XL 300 MG TAB.ER.24H PO (09:27)
[2024-04-29] MEDS: Folic Acid 1 MG TABLET PO (09:27)
--- NOTE | 2024-04-29 09:51 | HO.PSYCHPN ---
Subjective Subjective Date of Service: 04/29/24 Reason For Visit: depresion Interim History: Patient; discussed with team Patient reports that he is doing well , that his mood is good and depression is largely resolved. He reports he is sleeping well eating well and optimistic. AH has remained fully resolved throughout his admission. Discussed risks of relapse which patient is well aware; Patient wants to remain sober and hopes to eventually get into a program but wants to discharge since he has a family issue he needs to address. Patient expresses thanks for help received and feels that medications are helpful and wants to continue. Mental Status Exam Mental Status Exam Narrative: Pt is alert and oriented; behavior is cooperative, friendly and calm; patient is not in distress; dressed in casual attire, mood is described as good and affect congruent; eye contact appropriate; Speech is normal rate, volume and prosody and not pressured; no psychomotor agitation/retardation present; thought process is organized and goal directed; Thought content is on tx; otherwise pertinent to relevant topics and without any delusional content, paranoid ideations or grandiosity; denies any SI/HI. Denies AVH and there is no evidence of perceptual disturbance. Patients insight and judgment are intact. Diagnostics Vital Signs (24Hr): Vital Signs - 24 hr 04/28/24 20:00 04/28/24 21:35 04/28/24 21:35 Temperature 97.5 F 99.3 F Pulse Rate 101 H 85 Blood Pressure 183/90 H 139/79 139/79 Pulse Oximetry 99 Oxygen Delivery Method Room Air 04/28/24 21:36 Temperature Pulse Rate Blood Pressure 139/74 Pulse Oximetry Oxygen Delivery Method BMI result Body Mass Index 26.0 Labs 04/21/24 05:19 04/28/24 08:29 Labs: Laboratory Results - last 48 hr 04/28/24 04/28/24 08:21 08:29 Hold Purple Top SEE NOTE Creatinine 1.19 Estim Creat Clear Calc 72.9 Estimated GFR > 60 Hold Yellow Top See Note Medications Medications Current Medications Acetaminophen (Acetaminophen 325 Mg Tablet) 650 mg PO Q6H PRN PRN Reason: Headache/Pain Mild Scale (1-3) Last Admin: 04/26/24 21:22 Dose: 650 mg Al Hydroxide/Mg Hydroxide (Magnesium Hydrox/Alum Hydrox 30 Ml Oral.Susp) 30 ml PO Q6H PRN PRN Reason: Heartburn/Nausea Bupropion HCl (Bupropion Hcl Xl 300 Mg Tab.Er.24h) 300 mg PO DAILY [facility] Last Admin: 04/29/24 09:27 Dose: 300 mg Clonidine HCl (Clonidine Hcl 0.1 Mg Tablet) 0.1 mg PO Q4H PRN; Protocol PRN Reason: anxiety; insomnia Last Admin: 04/28/24 21:36 Dose: 0.1 mg Folic Acid (Folic Acid 1 Mg Tablet) 1 mg PO DAILY [facility] Last Admin: 04/29/24 09:27 Dose: 1 mg Gabapentin (Gabapentin 300 Mg Capsule) 300 mg PO BID [facility] Last Admin: 04/29/24 09:27 Dose: 300 mg Hydroxyzine HCl (Hydroxyzine Hcl 50 Mg Tablet) 50 mg PO BID PRN PRN Reason: Anxiety Last Admin: 04/28/24 21:37 Dose: 50 mg Ibuprofen (Ibuprofen 600 Mg Tablet) 600 mg PO Q8H PRN PRN Reason: Pain, Moderate(Pain Scale 4-6) Magnesium Hydroxide (Milk Of Magnesia 30 Ml Oral.Susp) 30 ml PO DAILY PRN PRN Reason: Constipation Melatonin (Melatonin 3 Mg Tablet) 6 mg PO BEDTIME [facility] Last Admin: 04/28/24 21:37 Dose: 6 mg Nicotine (Nicotine 21 Mg Patch.Td24) 21 mg TRANSDERMA DAILY PRN PRN Reason: smoking cessation Nicotine Polacrilex (Nicotine Polacrilex 2 Mg Gum) 4 mg BUCCAL Q2H PRN PRN Reason: Nicotine Cravings Prazosin HCl (Prazosin Hcl 1 Mg Capsule) 2 mg PO BEDTIME [facility]; Protocol Last Admin: 04/28/24 21:35 Dose: 2 mg Thiamine HCl (Thiamine Hcl 100 Mg Tablet) 100 mg PO DAILY [facility] Last Admin: 04/29/24 09:26 Dose: 100 mg Trazodone HCl (Trazodone Hcl 100 Mg Tablet) 100 mg PO BEDTIME PRN PRN Reason: Sleep Last Admin: 04/27/24 21:07 Dose: 100 mg Allergies Allergies Allergy/AdvReac Type Severity Reaction Status Date / Time No Known Allergies Allergy Verified 04/21/24 04:30 Assessment & Plan Assessment & Plan (1) MDD (major depressive disorder), recurrent, severe, with psychosis: Status: Acute Code(s): F33.3 - Major depressive disorder, recurrent, severe with psychotic symptoms (2) PTSD (post-traumatic stress disorder): Status: Acute Code(s): F43.10 - Post-traumatic stress disorder, unspecified (3) Homeless: Status: Acute Code(s): Z59.00 - Homelessness unspecified (4) Alcohol use disorder: Status: Acute Code(s): F10.90 - Alcohol use, unspecified, uncomplicated (5) Cocaine use disorder: Status: Acute Code(s): F14.10 - Cocaine abuse, uncomplicated Plan Patient is a 43-year-old homeless male with history of depression, PTSD, alcohol/crack cocaine dependency, use disorder who presents for worsening depression and dark thoughts in the face of continued substance abuse and psychosocial stressors. Patient reports that he chronically struggles with depression which will sometimes become severe. He says alcohol and crack cocaine are used to to numb his anxiety and depression and he has been using daily and heavily for years (0.5 gal vodka daily). Patient reports accompanying AH which is mood congruent and resolves when he is sober and not depressed. Patient reports that his depression worsened this past month after his cousin he started arguing with his family. His depression worsened this past week and he reports having dark thoughts... To do crazy stuff... To do something that would make me go to snf... And so he self presented for treatment. Patient denies any SI or history of self-harm. Denies any clear history of manic type episodes or behaviors; ongoing PTSD symptoms. Patient has never taken medications consistently since he is homeless and ends up losing his prescription. Patient however would like to try medications now. Formulation/clinical reasoning History of MDD and PTSD with mood congruent AH. History of severe alcohol and cocaine abuse. Currently Patient is in mild alcohol withdrawal as he has been in the ED for several days and his last drink was about 4 days ago; still has symptoms and benefiting from gabapentin being used for withdrawal. Patient reports he was sober for about 4 months several years ago and on a helpful medication but does not know what was; discussed options and patient agrees to trial of Wellbutrin. Discussed program for sobriety and Patient says that he would like treatment however he has an urgent family matter he has to attend to this week, helping his sister with something specific (though did not disclose) and says that after that is accomplished he wants to all hardly pursue sobriety. He understands his risk of relapse. Discussed MAT's and patient is ambivalent, having been on something before that he found not that effective Hospital course: 04/25 patient says mood is a little better; AH resolved. Still in some withdrawal but that is also getting better. Said he had retract his 3 day notice and wants to stay longer. Discussed medication and patient is open to further titrating Wellbutrin. Discussed metformin and patient says he has not been on metformin for over year and blood sugars have improved anyway, hemoglobin A1c down to 5.4. Discussed with his PCP said he does not need to be on metformin anymore and patient would like a DC 04/26 still depressed but overall feeling better; would like Wellbutrin increased. Struggles w/ insomnia, but understands lot of variables contributing including detoxing from significant hx of substance abuse. Pt feels w/ drawal coming to an end. Thankful for help received. No AVH. 04/27: Continue tx. 04/29 Patient reports that he is doing well , that his mood is good and depression is largely resolved. He reports he is sleeping well eating well and optimistic. AH has remained fully resolved throughout his admission. Discussed risks of relapse which patient is well aware; Patient wants to remain sober and hopes to eventually get into a program but wants to discharge since he has a family issue he needs to address. Patient expresses thanks for help received and feels that medications are helpful and wants to continue. Patient's 3 day notice is coming due; he has wanted to remain on the unit until tomorrow for treatment but is now asking for discharge. Patient remains at risk for relapse for which he is well aware however he is optimistic and will follow-up with [facility]. Patient has remained in good behavioral and impulse control throughout his time on the unit; he has been appropriate with peers and staff. Patient is not in imminent risk for harm to self or others and request for discharge honored. PLAN: 3 day q15min DC CIWA; patient not scoring Will taper Gabapentin Increase to Wellbutrin XL 300 mg; dc abilify; not indicated DC metformin; patient has not been on in quite a while and A1c 5.4 Urine culture: No growth Chlamydia/gonorrhea negative Patient educated on: diagnosis, medication risk/benefits, substance abuse and therapeutic strategies Informed Consent: understands Reason for continued inpatient stay Substantial Risk for: stable for discharge Time Spent With Patient Time: Total time managing care of this patient today ____ minutes.
[2024-04-29 10:11] VITALS: BP 131/88; PULSE 121; TEMP 36.7; O2SAT 98
[2024-04-29 20:00] VITALS: BP 188/102; PULSE 98; TEMP 37.4; O2SAT 96
[2024-04-29 22:05] VITALS: BP 158/91; PULSE 98; TEMP 37.4
[2024-04-29] MEDS: Melatonin 3 MG TABLET 6 MG PO (22:12)
[2024-04-29] MEDS: traZODone HCL 100 MG TABLET PO (22:12)
[2024-04-29 22:13] VITALS: BP 158/91
[2024-04-29] MEDS: Prazosin HCL 1 MG CAPSULE 2 MG PO (22:13)
[2024-04-30 08:00] VITALS: BP 144/80; PULSE 89; RESP 16; TEMP 36.9; O2SAT 97
--- NOTE | 2024-04-30 08:45 | P.DS_ITS ---
DS: Providers Provider Date of Service: 04/30/24 Date of admission: 04/23/24 13:58 Date of discharge: 04/30/24 Primary care physician: VILMA Wade Attending physician on admission: Mickey Lobo Attending physician on discharge: Mickey Lobo DS: Diagnosis Discharge Diagnosis (1) MDD (major depressive disorder), recurrent, severe, with psychosis: Status: Acute (2) PTSD (post-traumatic stress disorder): Status: Acute (3) Homeless: Status: Acute (4) Alcohol use disorder: Status: Acute (5) Cocaine use disorder: Status: Acute DS: Medications Discharge Medications Home Medications: Home Medications ?Medication ?Instructions ?Recorded ?Confirmed ibuprofen 600 mg tablet 600 mg PO Q8H PRN Pain 04/21/24 04/21/24 Previous Rx's ?Medication ?Instructions ?Recorded bupropion HCl 300 mg 24 hr tablet, 300 mg PO DAILY 30 days #30 tabs 04/30/24 extended release clonidine HCl 0.1 mg tablet 0.1 mg PO Q4H PRN anxiety; 04/30/24 insomnia 30 days #90 tabs hydroxyzine HCl 50 mg tablet 50 mg PO TID PRN anxiety 30 days 04/30/24 #90 tabs melatonin 5 mg tablet 5 mg PO BEDTIME PRN sleep 30 days 04/30/24 #30 tabs nicotine (polacrilex) 4 mg gum 4 mg PO Q2H PRN Nicotine Cravings 04/30/24 30 days #100 ea prazosin 2 mg capsule 2 mg PO BEDTIME 30 days #30 caps 04/30/24 trazodone 100 mg tablet 100 mg PO BEDTIME PRN insomnia 30 04/30/24 days #30 tabs Mental Status Exam Mental Status Exam Narrative: Pt is alert and oriented; behavior is cooperative, friendly and calm; patient is not in distress; dressed in casual attire, with adequate grooming; mood is good and affect congruent; eye contact appropriate; Speech is normal rate, volume and prosody and not pressured; no psychomotor agitation/retardation present; thought process is organized and goal directed; Thought content is on tx; otherwise pertinent to relevant topics and without any delusional content, paranoid ideations or grandiosity; denies any SI/HI. Denies AVH and there is no evidence of perceptual disturbance. Patients insight and judgment are intact. Data Data Completed and Pending Completed studies during hospitalization [Text1]: 04/23/24 04/23/24 04/24/24 10:13 14:12 07:49 Hold Purple Top Creatinine Estim Creat Clear Calc Estimated GFR Estimat Average Glucose 108 Hemoglobin A1c % 5.4 Triglycerides 169 H Cholesterol 144 LDL Cholesterol, Calc 64 HDL Cholesterol 47 Hold Yellow Top Urine Color Yellow Urine Appearance Clear Urine pH 5.5 Ur Specific [place] 1.025 Urine Protein Negative Urine Glucose (UA) Negative Urine Ketones Trace Urine Blood Negative Urine Nitrite Negative Ur Leukocyte Esterase Moderate (2+) H Urine RBC 0-2 Urine WBC 21-50 H Ur Squamous Epith Cells 0-2 Urine Bacteria None Seen Hyaline Casts 0-2 Chlam trachomat DNA PCR NOT DETECTED N.gonorrhoeae DNA (PCR) NOT DETECTED 04/28/24 04/28/24 08:21 08:29 Hold Purple Top SEE NOTE Creatinine 1.19 Estim Creat Clear Calc 72.9 Estimated GFR > 60 Estimat Average Glucose Hemoglobin A1c % Triglycerides Cholesterol LDL Cholesterol, Calc HDL Cholesterol Hold Yellow Top See Note Urine Color Urine Appearance Urine pH Ur Specific [place] Urine Protein Urine Glucose (UA) Urine Ketones Urine Blood Urine Nitrite Ur Leukocyte Esterase Urine RBC Urine WBC Ur Squamous Epith Cells Urine Bacteria Hyaline Casts Chlam trachomat DNA PCR N.gonorrhoeae DNA (PCR) 04/23/24 Unknown Urine clean catch - Clean Catch Midstream Urine Culture - Final DS: Summary Hospital Course Hospital Course: Patient is a 43-year-old homeless male with history of depression, PTSD, alcoh ol/crack cocaine dependency, use disorder who presents for worsening depression and dark thoughts in the face of continued substance abuse and psychosocial stressors. Patient reports that he chronically struggles with depression which will sometimes become severe. He says alcohol and crack cocaine are used to to numb his anxiety and depression and he has been using daily and heavily for years (0.5 gal vodka daily). Patient reports accompanying AH which is mood congruent and resolves when he is sober and not depressed. Patient reports that his depression worsened this past month after his cousin he started arguing with his family. His depression worsened this past week and he reports having dark thoughts... To do crazy stuff... To do something that would make me go to shelter... And so he self presented for treatment. Patient denies any SI or history of self-harm. Denies any clear history of manic type episodes or behaviors; ongoing PTSD symptoms. Patient has never taken medications consistently since he is homeless and ends up losing his prescription. Patient however would like to try medications now. Hospital course: On admission, patient was depressed and with AH and in withdrawal; he was calm and cooperative. Patient discussed History of MDD and PTSD with mood congruent AH. History of severe alcohol and cocaine abuse. Currently Patient is in mild alcohol withdrawal as he has been in the ED for several days and his last drink was about 4 days ago; still has symptoms and benefiting from gabapentin being used for withdrawal. Patient reports he was sober for about 4 months several years ago and on a helpful medication but does not know what was; discussed options and patient agrees to trial of Wellbutrin. Discussed program for sobriety and Patient says that he would like treatment however he has an urgent family matter he has to attend to, helping his sister with something specific (though did not disclose) and says that after that is accomplished he wants to attend treatment for help with sobriety. He understands his risk of relapse. Discussed MAT's and patient is ambivalent, having been on something before that he found not that effective 04/25 started on Wellbutrin, patient says mood is a little better; AH resolved. Still in some withdrawal but that is also getting better. Said he had retract his 3 day notice and wants to stay longer. Discussed medication and patient is open to further titrating Wellbutrin. -Discussed metformin and patient says he has not been on metformin for over year and blood sugars have improved anyway, hemoglobin A1c down to 5.4. Discussed with his PCP said he does not need to be on metformin anymore and patient would like a DC 04/26 still depressed but overall feeling better; would like Wellbutrin increased. Struggles w/ insomnia, but understands lot of variables contributing including detoxing from significant hx of substance abuse; prazosin increased. Pt feels w/ drawal coming to an end. Thankful for help received. No AVH. 04/29 Patient reports that he is doing well , that his mood is good and depression is largely resolved. He reports he is sleeping well eating well and optimistic. AH has remained fully resolved throughout his admission. Discussed risks of relapse which patient is well aware; Patient wants to remain sober and hopes to eventually get into a program but wants to discharge since he has a family issue he needs to address. Patient expresses thanks for help received and feels that medications are helpful and wants to continue. Patient's 3 day notice is coming due; he has wanted to remain on the unit until tomorrow for treatment but is now asking for discharge. Patient remains at risk for relapse for which he is well aware however he is optimistic and will follow-up with carissa Whitaker. Patient has remained in good behavioral and impulse control throughout his time on the unit; he has been appropriate with peers and staff. Patient is not in imminent risk for harm to self or others and request for discharge honored. Time spent discussing smoking cessation with patient: 3 to 10 minutes Status at Discharge Functional status at discharge: independent ambulation Overall status at discharge: patient is back to baseline Time Spent with Patient Time attestation: Total time managing care of this patient today _40___ minutes. Time spent: Greater than 30 minutes Specific discharge activities: Met with patient; discussed with team; prescriptions; charting Discharge Plan Discharge Anticipated Discharge Date/Time: 04/30/24 11:30 Patient Disposition: [facility] Discharge Diagnosis: MDD, recurrent, severe with psychotic features, in full remission Referrals: [facility]: Raj Duffy (therapy) [Other] - 05/02/24 10:00 am (Initial intake for Therapy services Appointment in person arrive 15 minutes prior to complete paperwork.) [facility]: Tatyana Chamberlain [Other] - 05/27/24 10:00 am (Hospital discharge appointment for psychiatric medication management. initial evaluation Appointment will be by tele-health) [facility]: Tatyana Chamberlain [Other] - 06/26/24 11:00 am (Psychiatric medication management appointment appointment is by tele-health (telephone call)) Carissa Whitaker: [facility] [Other] - 1 Week (Recovery services information. Patient may self present to be connected to recovery services (classroom technology coach)) [facility] [Other] - 1 Week (CONTACT IF INTERESTED IN INPATIENT SUBSTANCE ABUSE TREATMENT) [facility] [Other] - 1 Week (CONTACT FOR ASSISTANCE WITH HOUSING/SERVICES) Humberto Lozano PA [Primary Care Provider] - 05/13/24 11:00 am (in office appointment ) Discharge Medications: New clonidine HCl 0.1 mg Tablet 0.1 mg PO Q4H PRN (Reason: anxiety; insomnia) 30 Days Qty: 90 1RF Protocol: Hold for SBP< HOLD for SBP < : 90 bupropion HCl 300 mg Tablet Extended Release 24 Hr 300 mg PO DAILY 30 Days Qty: 30 1RF Continued ibuprofen 600 mg tablet 600 mg PO Q8H PRN (Reason: Pain) nicotine (polacrilex) 4 mg gum 4 mg PO Q2H PRN (Reason: Nicotine Cravings) 30 Days Qty: 100 0RF Changed hydroxyzine HCl 50 mg tablet 50 mg PO TID PRN (Reason: anxiety) 30 Days Qty: 90 0RF trazodone 100 mg tablet 100 mg PO BEDTIME PRN (Reason: insomnia) 30 Days Qty: 30 1RF prazosin 2 mg capsule 2 mg PO BEDTIME 30 Days Qty: 30 1RF melatonin 5 mg tablet 5 mg PO BEDTIME PRN (Reason: sleep) 30 Days Qty: 30 1RF Discontinued metformin 500 mg tablet 1,000 mg PO BID gabapentin 300 mg capsule 300 mg PO TID chlorhexidine gluconate [Hibiclens] 4 % liquid 1 appl topical DAILY aripiprazole 5 mg tablet 5 mg PO DAILY Discharge Orders: Discharge Order (Routine); Ordered 04/30/24 Ordered By: Mickey Lobo Diet: diabetic diet if willing Activity on Discharge: As tolerated Stand Alone Forms: Patient Portal Discharge page Print Language: Malian Care Plan Goals: Maintain mood and safe behaviors Take medications as prescribed Continue to pursue sobriety Practice coping skills Continue with outpatient providers and reach out to them as needed Health Concerns: Mood stability and behaviors Sobriety Hx of Diabetes Plan of Treatment: Follow up with your PCP, psychiatric provider and other outpatient providers regarding above concerns Take medications as prescribed Assessment: Risk assessment at time of discharge:? Patient was interviewed prior to discharge and found to be fully oriented and without any SI or HI. Patient has improved insight and judgment and wants to continue treatment. Patient is not in imminent risk of harm to self or others and has a safety plan that includes p resenting to the closest ER or calling 911 if feeling unsafe.? Patient has been observed closely by nursing and unit staff throughout admission; patient has not engaged in any behaviors that suggest dangerousness to self or others and has demonstrated appropriate behaviors and impulse control
[2024-04-30] MEDS: Thiamine HCL 100 MG TABLET PO (09:28)
[2024-04-30] MEDS: Gabapentin 300 MG CAPSULE PO (09:28)
[2024-04-30] MEDS: buPROPion HCl XL 300 MG TAB.ER.24H PO (09:28)
[2024-04-30] MEDS: Folic Acid 1 MG TABLET PO (09:29)
[2024-04-30] MEDS: Naloxone HCl Nasal TAKE HOME 4 MG SPRAY 8 MG NOSTRILALT (09:39)
== END 2024-04-30 10:00 | disposition home or self-care (01) | DRG 751 ==
LOC: HO.ED 04-23 08:48 → HO.PM5 04-23 14:13
PROVIDERS: Internal Medicine; Physician Assistant; Admitting Provider Psychiatry & Neurology Psychiatry; Emergency Provider Emergency Medicine Emergency Medical Services; PCP Physician Assistant Medical; Visit Provider Psychiatry & Neurology Psychiatry
DX: F33.3 Major depressive disorder, recurrent, severe with psychotic symptoms (principal); R45.851 Suicidal ideations; F10.90 Alcohol use, unspecified, uncomplicated; F43.10 Post-traumatic stress disorder, unspecified; F17.210 Nicotine dependence, cigarettes, uncomplicated; F14.10 Cocaine abuse, uncomplicated; Z59.02 Unsheltered homelessness; Z71.6 Tobacco abuse counseling; Z79.899 Other long term (current) drug therapy
CPT/HCPCS: 36415; 80053; 80061; 80307; 81001; 82565; 83036; 85025; 87086; 87491; 87591; 93005; 99285; S9485

== ENCOUNTER → 2024-04-23 09:26 | Outpatient (BNV) | payer OTHER, SELFPAY | PROVIDERS: Admitting Provider Psychiatry & Neurology Psychiatry; Emergency Provider Emergency Medicine Emergency Medical Services; PCP Physician Assistant Medical; Visit Provider Internal Medicine | DX: F14.90 Cocaine use, unspecified, uncomplicated (principal) | CPT/HCPCS: 93010 ==

== ENCOUNTER → 2024-04-23 13:58 | Outpatient (BNV) | payer OTHER, SELFPAY | PROVIDERS: Admitting Provider Psychiatry & Neurology Psychiatry; Emergency Provider Emergency Medicine Emergency Medical Services; PCP Physician Assistant Medical; Visit Provider Psychiatry & Neurology Psychiatry | DX: F33.3 Major depressive disorder, recurrent, severe with psychotic symptoms (principal); F10.90 Alcohol use, unspecified, uncomplicated; F43.11 Post-traumatic stress disorder, acute; Z59.00 Homelessness unspecified; F14.10 Cocaine abuse, uncomplicated | CPT/HCPCS: 99231; 99232 ==

== ENCOUNTER 2024-05-06 05:48 | Emergency (ER) | payer OTHER, SELFPAY ==
[2024-05-06 05:53] VITALS: BP 157/101; PULSE 98; RESP 16; TEMP 36.6; O2SAT 97; BMI 27.6
[2024-05-06 06:08] LABS: MANUAL DIFF FLAG NO
[2024-05-06 06:09] LABS: Basophils Absolute Auto 0.1 X10*3/uL (0.0-0.2); Basophils Percent Auto 0.7 % (0-2); Eosinophils Percent Auto 0.3 % (0-4); Hematocrit 41.1 % (42.0-52.0); Hemoglobin 13.4 g/dl (14.0-18.0); Imm Gran Abs Auto 0.02 X10*3/uL (0.00-0.03); Imm Gran Pct Auto 0.3 % (0.0-0.4); Lymphocytes Absolute Auto 2.1 X10*3/uL (1.2-4.9); Lymphocytes Percent Auto 29.2 % (20-40); Mean Corpuscular HGB Conc 32.6 g/dl (31.0-36.0); Mean Corpuscular Hemoglobin 27.9 pg (27.0-33.0); Mean Corpuscular Volume 85.6 fL (80.0-98.0); Mean Platelet Volume 8.3 fL (9.4-12.4); Monocytes Absolute Auto 0.3 X10*3/uL (0.1-1.2); Monocytes Percent Auto 4.7 % (2-11); Neutrophils Absolute Auto 4.6 x10*3/uL (2.0-8.3); Neutrophils Percent Auto 64.8 % (45-73); Platelet Count 257 X10*3/uL (160-400); Red Cell Distribution Width 13.4 % (11.0-16.0); White Blood Count 7.1 X10*3/uL (4.8-10.8)
--- NOTE | 2024-05-06 06:12 | ED_ITS ---
HPI - Psych General Chief Complaint: Psychiatric Symptoms Stated Complaint: crisis Time Seen by Provider: 05/06/24 06:11 Source: patient and old records reviewed Mode of arrival: ambulatory Limitations: no limitations History of Present Illness ED Provider: TERRY CHOUDHURY Narrative: 43 yo male with PTSD, MDD, cocaine use disorder, alcohol use disorder, just admitted here this month here with c/o depression, SI and recent use of ETOH and crack cocaine. He denies any medical issues or trauma. He was just admitted for similar symptoms. He has no HI/AH/VH. He has no plan. Filled his medications when he left but lost them no meds since 04/30 complaint: suicidal ideation, feels depressed and alcohol abuse Onset (ago): day(s) Duration: intermittent History of same: Yes Relieving factors: none Exacerbating factors: alcohol and drug use Context: recent alcohol abuse and recent drug abuse Associated psychiatric symptoms: depression and suicidal ideation Associated symptoms: denies other symptoms Treatments prior to arrival: none If self harm: admits thoughts of self harm Related Data Previous Rx's ?Medication ?Instructions ?Recorded bupropion HCl 300 mg 24 hr tablet, 300 mg PO DAILY 30 days #30 tabs 04/30/24 extended release clonidine HCl 0.1 mg tablet 0.1 mg PO Q4H PRN anxiety; 04/30/24 insomnia 30 days #90 tabs hydroxyzine HCl 50 mg tablet 50 mg PO TID PRN anxiety 30 days 04/30/24 #90 tabs melatonin 5 mg tablet 5 mg PO BEDTIME PRN sleep 30 days 04/30/24 #30 tabs nicotine (polacrilex) 4 mg gum 4 mg PO Q2H PRN Nicotine Cravings 04/30/24 30 days #100 ea prazosin 2 mg capsule 2 mg PO BEDTIME 30 days #30 caps 04/30/24 trazodone 100 mg tablet 100 mg PO BEDTIME PRN insomnia 30 04/30/24 days #30 tabs Allergies Allergy/AdvReac Type Severity Reaction Status Date / Time No Known Allergies Allergy Verified 05/06/24 05:57 Review of Systems 2 Review of Systems: Constitutional : No Fever, No Chills ENT/Mouth : No Ear Pain, No Nasal Congestion, No sore throat Eyes: No Eye Pain, No Swelling, No Redness Cardiovascular : No Chest Pain, No SOB Respiratory : No Cough, No Sputum, No Dyspnea Gastrointestinal : No Nausea, No Vomiting, No Diarrhea, No Hematochezia, No Melena Genitourinary : No Dysuria, No Urinary Frequency, No Hematuria Musculoskeletal : No Myalgias Skin : No Skin Lesions, No rash Neuro : No Weakness, No Numbness, No Paresthesias, No Dizziness, No Headache Psych : positive Anxiety, positive Depression, positive SI/HI All other systems reviewed and are negative PMFSH Past Medical History Attestation statement: The following information was validated with the patient. Source: old records reviewed Medical History PTSD (post-traumatic stress disorder) MDD (major depressive disorder), recurrent, severe, with psychosis Cocaine use disorder Alcohol use disorder Homeless Alcohol abuse Polysubstance abuse Social History Social History Household Members: None Housing: Homeless Do you presently have visiting nurse or other home services: No Alcohol intake: current Alcohol intake frequency: 3 or more drinks per day Alcohol type: beer, wine and hard liquor Patient Tobacco Use Status: Current everyday Tobacco user Tobacco use type: Cigarette Cigarette Packs Per Day: 0.5 Cigarettes Per Day: 10.0 Years Smoked: 20 e-Cigarette/Vaping Use: Never Used Second Hand Smoke Exposure: No Substance Use Type: Crack/Cocaine Advance Directives: No Advance Directives Information Provided: Yes service: No Sexual orientation: Don't Know Physical Exam 2 Vital Signs: Vital Signs: Last Vital Signs Temp 97.9 F 05/06/24 05:53 Pulse 98 05/06/24 05:53 Resp 16 05/06/24 05:53 BP 157/101 H 05/06/24 05:53 Pulse Ox 97 05/06/24 05:53 O2 Del Method Room Air 05/06/24 05:53 BMI result Body Mass Index 27.6 Appearance: Alert. Oriented X3. No acute distress. Eyes: Pupils equal, round and reactive to light. ENT: Pharynx normal. Neck: Normal inspection. Neck supple. CVS: Normal heart rate and rhythm. Pulses normal. Respiratory: No respiratory distress. Breath sounds normal. Abdomen: Soft and nontender. Skin: Skin warm and dry. Normal skin color. Normal skin turgor. Extremities: No lower extremity edema. No calf ttp Neuro: Oriented X 3. No motor deficit. No sensory deficit. CN2-12 intact Medical Decision Making Medical Decision Making MDM Narrative: 43 yo male with PTSD, MDD, cocaine use disorder, alcohol use disorder, just admitted here this month here with c/o recurrent drug use and ETOH use, now with SI and depression. No AH/VH. He has no reported trauma or medical issues. Will obtain labs and refer to CARE team Differential Diagnosis Differential Diagnoses: The differential diagnosis associated with the presentation includes drug abuse, poor social situation, depression Admission/Observation Consideration of admission/observation: Escalation of care including admission/observation considered physician observation started at 618am pending CARE team Consult Healthcare Provider Management of the patient was discussed with: Behavioral Health Provider Lab Data [facility] Lab Attestation statement: I reviewed the patient's lab results. 05/06/24 06:03 05/06/24 06:03 Labs: Lab Results 05/06/24 05/06/24 Range/Units 06:03 06:12 WBC 7.1 (4.8-10.8) X10*3/uL RBC 4.80 (4.60-5.80) X10*6/uL Hgb 13.4 L (14.0-18.0) g/dl Hct 41.1 L (42.0-52.0) % MCV 85.6 (80.0-98.0) fL MCH 27.9 (27.0-33.0) pg MCHC 32.6 (31.0-36.0) g/dl RDW 13.4 (11.0-16.0) % Plt Count 257 (160-400) X10*3/uL MPV 8.3 L (9.4-12.4) fL Immature Gran % (Auto) 0.3 (0.0-0.4) % Neut % (Auto) 64.8 (45-73) % Lymph % (Auto) 29.2 (20-40) % [place] % (Auto) 4.7 (2-11) % Eos % (Auto) 0.3 (0-4) % Baso % (Auto) 0.7 (0-2) % Lymph # (Auto) 2.1 (1.2-4.9) X10*3/uL [place] # (Auto) 0.3 (0.1-1.2) X10*3/uL Eos # (Auto) 0.0 (0.0-0.4) X10*3/uL Baso # (Auto) 0.1 (0.0-0.2) X10*3/uL Abs Immat Gran (auto) 0.02 (0.00-0.03) X10*3/uL Absolute Neuts (auto) 4.6 (2.0-8.3) x10*3/uL Absolute Nucleated RBC 0.000 (0.0-0.012) X10*3/uL Nucleated RBC % (auto) 0.0 (0.0-0.2) /100WBC Sodium 142 (135-145) mmol/L Potassium 4.1 (3.3-5.1) mmol/L Chloride 106 (96-108) mmol/L Carbon Dioxide 23 (22-29) mmol/L Anion Gap 17 (12-20) BUN 21 H (9-16) mg/dL Creatinine 1.14 (0.5-1.4) mg/dL Estim Creat Clear Calc 82.8 Estimated GFR > 60 Random Glucose 83 (60-115) mg/dL Calcium 8.7 (8.4-10.2) mg/dL Magnesium 2.2 (1.6-2.6) mg/dL Total Bilirubin 0.3 (0.0-1.0) mg/dL Direct Bilirubin 0.2 (0.0-0.5) mg/dL AST 31 (5-37) U/L ALT 34 (0-40) U/L Alkaline Phosphatase 111 (39-117) U/L Total Protein 7.1 (6.5-8.0) g/dL Albumin 4.3 (3.5-5.0) g/dL Urine Color Yellow Urine Appearance Clear Urine pH 5.5 (5.0-9.0) Ur Specific [place] 1.010 (1.005-1.025) Urine Protein Negative (Neg-Trace) mg/dL Urine Glucose (UA) Negative (Negative) mg/dL Urine Ketones Negative (Negative) mg/dL Urine Blood Negative (Negative) Urine Nitrite Negative (Negative) Ur Leukocyte Esterase Negative (Negative) Ethyl Alcohol 62 mg/dL External Record Review External record reviewed: Inpatient record Social Determinants Patient?s care significantly limited by Social Determinants of Health including: Problems related to primary support group Discharge Plan Discharge Clinical Impression: Cocaine use disorder, Alcohol use disorder Patient Disposition: Still a Patient Prescriptions: No Action clonidine HCl 0.1 mg Tablet 0.1 mg PO Q4H PRN (Reason: anxiety; insomnia) 30 Days Qty: 90 1RF Protocol: Hold for SBP< HOLD for SBP < : 90 bupropion HCl 300 mg Tablet Extended Release 24 Hr 300 mg PO DAILY 30 Days Qty: 30 1RF hydroxyzine HCl 50 mg tablet 50 mg PO TID PRN (Reason: anxiety) 30 Days Qty: 90 0RF trazodone 100 mg tablet 100 mg PO BEDTIME PRN (Reason: insomnia) 30 Days Qty: 30 1RF nicotine (polacrilex) 4 mg gum 4 mg PO Q2H PRN (Reason: Nicotine Cravings) 30 Days Qty: 100 0RF prazosin 2 mg capsule 2 mg PO BEDTIME 30 Days Qty: 30 1RF melatonin 5 mg tablet 5 mg PO BEDTIME PRN (Reason: sleep) 30 Days Qty: 30 1RF Interventions: Geary-Suicide Risk Severity Scale Last Done: 05/06/24 06:13 Print Language: Pakistani
--- NOTE | 2024-05-06 06:12 | PC.NURSE ---
t/w completed the cahngeover for this client which resulted in no contraband found and no evidence of injury to person, stated he had taken no medications since leaving inpt, smokes but didnt want nrt.
[2024-05-06 06:18] LABS: Appearance Urine Clear; Color Urine Yellow; Glucose Urine UA Negative (Negative); Leukocyte Esterase Urine Negative (Negative); Nitrite Urine Negative (Negative); PH 5.5 (5.0-9.0); Urine Blood Negative (Negative); Urine Ketones Negative (Negative); Urine Protein Negative (Neg-Trace)
[2024-05-06 06:23] LABS: Alanine Aminotransferase 34 U/L (0-40); Albumin Level 4.3 g/dL (3.5-5.0); Alkaline Phosphatase 111 U/L (39-117); Anion Gap 17 (12-20); Aspartate Amino Transferase 31 U/L (5-37); Bilirubin Direct 0.2 mg/dL (0.0-0.5); Bilirubin Total 0.3 mg/dL (0.0-1.0); Blood Urea Nitrogen 21 mg/dL (9-16); Calcium 8.7 mg/dL (8.4-10.2); Carbon Dioxide 23 mmol/L (22-29); Chloride 106 mmol/L (96-108); Creatinine Clr Calc Pharmacy 82.8; Estimated Glomerular Filt Rate > 60; Ethanol 62 mg/dL; Glucose Random 83 mg/dL (60-115); Magnesium 2.2 mg/dL (1.6-2.6); Potassium 4.1 mmol/L (3.3-5.1); Sodium 142 mmol/L (135-145); Total Protein 7.1 g/dL (6.5-8.0)
[2024-05-06 06:30] LABS: Amphetamine Screen Urine Not Detected (Not Detect); Barbiturates, Urine Not Detected (Not Detect); Benzodiazepines Screen Urine Not Detected (Not Detect); Buprenorphine Scr Not Detected (Not Detect); Cannabinoid Screen Urine Not Detected (Not Detect); Cocaine Screen Urine POSITIVE (Not Detect); Fentanyl, urine Not Detected (Not Detect); Methadone Screen, Urine Not Detected (Not Detect); Opiate Screen Urine Not Detected (Not Detect); Oxycodone Screen Urine Not Detected (Not Detect); Phencyclidine Screen Urine POSITIVE (Not Detect)
--- NOTE | 2024-05-06 08:05 | PC.NURSE ---
Assumed care of patient at 0645, patient appears to be sleeping, respirations even and unlabored, no apparent distress noted. Continue plan of care for CARE team jennifer
[2024-05-06 08:49] VITALS: RESP 16
[2024-05-06] MEDS: buPROPion HCl XL 300 MG TAB.ER.24H PO (08:51)
--- NOTE | 2024-05-06 08:56 | MHC.CARE ---
Pt was seen by CARE team for assessment, patient denies suicidal ideation or homicidal ideation plan or intent and is seeking detox level of care currently. Patient is hopeful to step down to TSS/CSS from detox level of care.
--- NOTE | 2024-05-06 09:09 | MHC.RECOVRN ---
Pts referral sent to [facility].
--- NOTE | 2024-05-06 10:29 | MHC.RECOVRN ---
Pt accepted to [facility] pending phone screen.
--- NOTE | 2024-05-06 12:32 | PC.NURSE ---
pt completed phone screening with [facility], plan will be for discharge and transport to [facility] for 2pm
[2024-05-06 13:20] VITALS: BP 152/90; PULSE 72; RESP 18; TEMP 37; O2SAT 97
--- NOTE | 2024-05-06 13:29 | PC.NURSE ---
Patient changed his mind again would like to go to [facility]. Spoke to Care team will attempt to get him a bed.
--- NOTE | 2024-05-06 13:33 | PC.NURSE ---
He decided he's going to take a lyft to [facility] and check himself in.
== END 2024-05-06 13:40 | disposition home or self-care (01) ==
PROVIDERS: Emergency Provider Emergency Medicine; PCP Physician Assistant Medical
DX: F14.10 Cocaine abuse, uncomplicated (principal); F10.10 Alcohol abuse, uncomplicated; Y90.3 Blood alcohol level of 60-79 mg/100 ml; R45.851 Suicidal ideations; F33.3 Major depressive disorder, recurrent, severe with psychotic symptoms; F43.10 Post-traumatic stress disorder, unspecified; F17.210 Nicotine dependence, cigarettes, uncomplicated; F19.10 Other psychoactive substance abuse, uncomplicated; Z59.00 Homelessness unspecified; Z79.899 Other long term (current) drug therapy
CPT/HCPCS: 36415; 80048; 80076; 80307; 81003; 83735; 85025; 99284; S9485

== ENCOUNTER 2024-07-29 02:23 | Inpatient (IN) | payer OTHER, SELFPAY ==
--- NOTE | 2024-07-29 | ECG_ITS ---
Test Reason : CHECK QTC Blood Pressure : */* mmHG Vent. Rate : 77 BPM Atrial Rate : 77 BPM P-R Int : 134 ms QRS Dur : 76 ms QT Int : 372 ms P-R-T Axes : 61 44 2 degrees QTcB Int : 420 ms Normal sinus rhythm Minimal voltage criteria for LVH, may be normal variant ( Sokolow-Motley ) Borderline ECG When compared with ECG of 23-Apr-2024 09:26, No significant change was found Referred By: Generic ED Physician Electronically Signed By: SCOTTY HUSSEIN MD
[2024-07-29 02:30] VITALS: BP 174/97; PULSE 94; RESP 16; TEMP 37; O2SAT 100; BMI 25.8
--- NOTE | 2024-07-29 02:49 | PC.NURSE ---
aware of bp. labs/ekg obtained .pt escorted to pod. report given to salvador rollins.
[2024-07-29 02:51] LABS: Basophils Percent Auto 0.3 % (0-2); Eosinophils Percent Auto 0.1 % (0-4); Hematocrit 41.2 % (42.0-52.0); Hemoglobin 13.1 g/dl (14.0-18.0); Imm Gran Abs Auto 0.02 X10*3/uL (0.00-0.03); Imm Gran Pct Auto 0.2 % (0.0-0.4); Lymphocytes Absolute Auto 1.8 X10*3/uL (1.2-4.9); Lymphocytes Percent Auto 15.9 % (20-40); MANUAL DIFF FLAG NO; Mean Corpuscular HGB Conc 31.8 g/dl (31.0-36.0); Mean Corpuscular Hemoglobin 27.2 pg (27.0-33.0); Mean Corpuscular Volume 85.5 fL (80.0-98.0); Mean Platelet Volume 8.2 fL (9.4-12.4); Monocytes Absolute Auto 0.8 X10*3/uL (0.1-1.2); Monocytes Percent Auto 7.3 % (2-11); Neutrophils Absolute Auto 8.8 x10*3/uL (2.0-8.3); Neutrophils Percent Auto 76.2 % (45-73); Platelet Count 312 X10*3/uL (160-400); Red Blood Count 4.82 X10*6/uL (4.60-5.80); Red Cell Distribution Width 14.1 % (11.0-16.0); White Blood Count 11.6 X10*3/uL (4.8-10.8)
--- NOTE | 2024-07-29 03:05 | MHC.EDTECH ---
patient arrived in pod, changed over without incident. belongings list made and printed, belongings secured in pod locker 9. Pt requests blankets and states that he is unable to urinate at this time and will let staff know when that changes.
[2024-07-29 03:07] LABS: Acetaminophen LAB < 3 mcg/mL (<30); Alanine Aminotransferase 28 U/L (0-40); Alkaline Phosphatase 84 U/L (39-117); Anion Gap 12 (12-20); Aspartate Amino Transferase 33 U/L (5-37); Blood Urea Nitrogen 13 mg/dL (9-16); Calcium 8.5 mg/dL (8.4-10.2); Carbon Dioxide 24 mmol/L (22-29); Chloride 106 mmol/L (96-108); Creatinine Clr Calc Pharmacy 90.4; Estimated Glomerular Filt Rate > 60; Ethanol < 10 mg/dL; Glucose Random 73 mg/dL (60-115); Potassium 3.9 mmol/L (3.3-5.1); Salicylate < 5.0 mg/dL (15-30); Sodium 138 mmol/L (135-145); Total Protein 7.1 g/dL (6.5-8.0)
--- NOTE | 2024-07-29 03:31 | ED_ITS ---
HPI - Psych General Chief Complaint: Psychiatric Symptoms Stated Complaint: crisis, negative thoughts Time Seen by Provider: 07/29/24 03:30 Source: patient Mode of arrival: ambulatory Limitations: no limitations History of Present Illness ED Provider: Dr. Lucina Jaime HPI Narrative: Patient comes to the emergency room complaining of having ?bad thoughts?, thoughts of hopelessness. Patient reports vague suicidal ideation, no plan. Denies HI. Patient admits to alcohol and substance abuse including crack cocaine. Patient states that he drinks 0.5 gal of vodka per day, last drink at 14:00 Related Data Previous Rx's ?Medication ?Instructions ?Recorded bupropion HCl 300 mg 24 hr tablet, 300 mg PO DAILY 30 days #30 tabs 04/30/24 extended release clonidine HCl 0.1 mg tablet 0.1 mg PO Q4H PRN anxiety; 04/30/24 insomnia 30 days #90 tabs hydroxyzine HCl 50 mg tablet 50 mg PO TID PRN anxiety 30 days 04/30/24 #90 tabs melatonin 5 mg tablet 5 mg PO BEDTIME PRN sleep 30 days 04/30/24 #30 tabs nicotine (polacrilex) 4 mg gum 4 mg PO Q2H PRN Nicotine Cravings 04/30/24 30 days #100 ea prazosin 2 mg capsule 2 mg PO BEDTIME 30 days #30 caps 04/30/24 trazodone 100 mg tablet 100 mg PO BEDTIME PRN insomnia 30 04/30/24 days #30 tabs Allergies Allergy/AdvReac Type Severity Reaction Status Date / Time shellfish derived [shellfish] Allergy Difficulty Verified 07/29/24 02:33 Breathing Review of Systems 2 Review of Systems: Constitutional : No Weight loss, No Fever, No Chills, No Night Sweats, No Fatigue, No Malaise ENT/Mouth : No Hearing loss, No Ear Pain, No Nasal Congestion, No Sinus Pain, No Hoarseness, No sore throat, No Rhinorrhea, No Swallowing Difficulty Eyes: No Eye Pain, No Swelling, No Redness, No Foreign Body, No Discharge, No Vision Changes Cardiovascular : No Chest Pain, No SOB, No Dyspnea on Exertion, No Orthopnea, No Edema, No Palpitations Respiratory : No Cough, No Sputum, No Wheezing, No Smoke Exposure, No Dyspnea Gastrointestinal : No Nausea, No Vomiting, No Diarrhea, No Constipation, No abdominal Pain, No Hematochezia, No Melena Genitourinary : no irregular bleeding, No Dysuria, No Urinary Frequency, No Hematuria, No Urinary Incontinence, No Urgency, No Flank Pain, No Urinary Flow Changes, No Hesitancy Musculoskeletal : No joint pain, No Myalgias, No Joint Swelling Skin : No Skin Lesions, No rash Neuro : No Weakness, No Numbness, No Paresthesias, No Loss of Consciousness, No Dizziness, No Headache Psych : No anxiety, complaining of depression, vague SI without plan, no HI, admits to polysubstance abuse and alcohol abuse Heme/Lymph: No Bruising, No Bleeding,No Lymphadenopathy Endocrine : No Polyuria, No Polydipsia, No Temperature Intolerance PMFSH Past Medical History Medical History Polysubstance abuse Suicidal ideation PTSD (post-traumatic stress disorder) MDD (major depressive disorder), recurrent, severe, with psychosis Cocaine use disorder Alcohol use disorder Homeless Alcohol abuse Polysubstance abuse Social History Social History Household Members: None Housing: Homeless Do you presently have visiting nurse or other home services: No Alcohol intake: current Alcohol intake frequency: 3 or more drinks per day Alcohol type: beer, wine and hard liquor Patient Tobacco Use Status: Current everyday Tobacco user Tobacco use type: Cigarette Cigarette Packs Per Day: 0.5 Cigarettes Per Day: 10.0 Years Smoked: 20 e-Cigarette/Vaping Use: Never Used Second Hand Smoke Exposure: No Substance Use Type: Crack/Cocaine Advance Directives: No Advance Directives Information Provided: Yes Do you have a plan to hurt others: No Plan service: No Sexual orientation: Don't Know Physical Exam 2 Vital Signs: Vital Signs: Last Vital Signs Temp 98.6 F 07/29/24 02:30 Pulse 94 07/29/24 02:30 Resp 16 07/29/24 02:30 BP 174/97 H 07/29/24 02:30 Pulse Ox 100 07/29/24 02:30 O2 Del Method Room Air 07/29/24 02:30 BMI result Body Mass Index 25.8 Const: Other: Appearance: Alert. Oriented X3. No acute distress. Eyes: Pupils equal, round and reactive to light. ENT: Pharynx normal. Neck: Normal inspection. Neck supple. No lymph nodes noted. No crepitus CVS: Normal heart rate and rhythm. Pulses normal. Normal S1 and S2 Respiratory: No respiratory distress. Breath sounds normal. No Wheezing. No rales Abdomen: Soft and nontender. No rigidity. No distention. Skin: Skin warm and dry. Normal skin color. Normal skin turgor. Extremities: No lower extremity edema. No Lacerations. No Rash Neuro: Oriented X 3. No motor deficit. No sensory deficit. Moving all extremities. No slurred speech. CN 2 through 12 grossly intact Psych: calm, cooperative, normal affect Course Course Course Narrative: Care team consult pending Physician observation started at 03:30 Medical Decision Making Medical Decision Making [facility] Narrative: My interpretation of labs: White blood cell count 11.6, likely reactive leukocytosis, chemistry within normal limits, LFTs normal, toxicology negative for salicylates, acetaminophen and ETOH, urine toxicology pending Care team consult pending Physician observation started at 03:30 Differential Diagnosis Differential Diagnoses: The differential diagnosis associated with the presentation includes (Anxiety, depression, alcohol intoxication, alcohol abuse/dependence, polysubstance abuse) Admission/Observation Consideration of admission/observation: Escalation of care including admission/observation considered Lab Data 07/29/24 02:41 07/29/24 02:41 Labs: Lab Results 07/29/24 Range/Units 02:41 WBC 11.6 H (4.8-10.8) X10*3/uL RBC 4.82 (4.60-5.80) X10*6/uL Hgb 13.1 L (14.0-18.0) g/dl Hct 41.2 L (42.0-52.0) % MCV 85.5 (80.0-98.0) fL MCH 27.2 (27.0-33.0) pg MCHC 31.8 (31.0-36.0) g/dl RDW 14.1 (11.0-16.0) % Plt Count 312 (160-400) X10*3/uL MPV 8.2 L (9.4-12.4) fL Immature Gran % (Auto) 0.2 (0.0-0.4) % Neut % (Auto) 76.2 H (45-73) % Lymph % (Auto) 15.9 L (20-40) % [place] % (Auto) 7.3 (2-11) % Eos % (Auto) 0.1 (0-4) % Baso % (Auto) 0.3 (0-2) % Lymph # (Auto) 1.8 (1.2-4.9) X10*3/uL [place] # (Auto) 0.8 (0.1-1.2) X10*3/uL Eos # (Auto) 0.0 (0.0-0.4) X10*3/uL Baso # (Auto) 0.0 (0.0-0.2) X10*3/uL Abs Immat Gran (auto) 0.02 (0.00-0.03) X10*3/uL Absolute Neuts (auto) 8.8 H (2.0-8.3) x10*3/uL Absolute Nucleated RBC 0.000 (0.0-0.012) X10*3/uL Nucleated RBC % (auto) 0.0 (0.0-0.2) /100WBC Sodium 138 (135-145) mmol/L Potassium 3.9 (3.3-5.1) mmol/L Chloride 106 (96-108) mmol/L Carbon Dioxide 24 (22-29) mmol/L Anion Gap 12 (12-20) BUN 13 (9-16) mg/dL Creatinine 0.95 (0.5-1.4) mg/dL Estim Creat Clear Calc 90.4 Estimated GFR > 60 Random Glucose 73 (60-115) mg/dL Calcium 8.5 (8.4-10.2) mg/dL Total Bilirubin 1.0 (0.0-1.0) mg/dL AST 33 (5-37) U/L ALT 28 (0-40) U/L Alkaline Phosphatase 84 (39-117) U/L Total Protein 7.1 (6.5-8.0) g/dL Albumin 4.0 (3.5-5.0) g/dL Salicylates < 5.0 L (15-30) mg/dL Acetaminophen < 3 (<30) mcg/mL Ethyl Alcohol < 10 mg/dL Discharge Plan Discharge Clinical Impression: Alcohol use disorder, Cocaine use disorder, Suicidal ideation Patient Disposition: Still a Patient Prescriptions: No Action clonidine HCl 0.1 mg Tablet 0.1 mg PO Q4H PRN (Reason: anxiety; insomnia) 30 Days Qty: 90 1RF Protocol: Hold for SBP< HOLD for SBP < : 90 bupropion HCl 300 mg Tablet Extended Release 24 Hr 300 mg PO DAILY 30 Days Qty: 30 1RF hydroxyzine HCl 50 mg tablet 50 mg PO TID PRN (Reason: anxiety) 30 Days Qty: 90 0RF trazodone 100 mg tablet 100 mg PO BEDTIME PRN (Reason: insomnia) 30 Days Qty: 30 1RF nicotine (polacrilex) 4 mg gum 4 mg PO Q2H PRN (Reason: Nicotine Cravings) 30 Days Qty: 100 0RF prazosin 2 mg capsule 2 mg PO BEDTIME 30 Days Qty: 30 1RF melatonin 5 mg tablet 5 mg PO BEDTIME PRN (Reason: sleep) 30 Days Qty: 30 1RF Print Language: Bermudian
[2024-07-29 04:17] LABS: Appearance Urine Clear; Color Urine Yellow; Glucose Urine UA Negative (Negative); Leukocyte Esterase Urine Trace (Negative); Nitrite Urine Negative (Negative); UMIC TRIGGER UACC YES; Urine Blood Negative (Negative); Urine Ketones Negative (Negative); Urine Protein Negative (Neg-Trace)
[2024-07-29 04:20] LABS: Bacteria Urine None Seen (None Seen); Hyaline Casts Urine 0-2 /LPF (0-2); RBC Urine 0-2 /HPF (0-2); Squamous Epithelial Cell Urine 0-2 /HPF (0-2); UACC Culture Trigger YES
[2024-07-29 04:28] LABS: Amphetamine Screen Urine Not Detected (Not Detect); Barbiturates, Urine Not Detected (Not Detect); Benzodiazepines Screen Urine Not Detected (Not Detect); Buprenorphine Scr Not Detected (Not Detect); Cannabinoid Screen Urine Not Detected (Not Detect); Cocaine Screen Urine POSITIVE (Not Detect); Fentanyl, urine Not Detected (Not Detect); Methadone Screen, Urine Not Detected (Not Detect); Opiate Screen Urine Not Detected (Not Detect); Oxycodone Screen Urine Not Detected (Not Detect); Phencyclidine Screen Urine Not Detected (Not Detect)
[2024-07-29 06:24] VITALS: RESP 12
[2024-07-29 14:34] VITALS: BP 160/88; PULSE 72; RESP 14; TEMP 36.8; O2SAT 99
--- NOTE | 2024-07-29 19:34 | PC.NURSE ---
Patient awake and alert. skin pwd, resp even and non labored, speaking in full, clear sentences. denies pain. reports SI w/o plan. denies HI. calm and cooperative, able to make needs known. currently resting in room
[2024-07-29 20:59] VITALS: BP 146/78; PULSE 72; RESP 16; TEMP 37.1; O2SAT 99
--- NOTE | 2024-07-29 23:23 | MHC.EDTECH ---
this tech assumed care of pt @ 2300, at this time hte pt was witnessed sleeping in bed in his room
--- NOTE | 2024-07-30 07:28 | PC.NURSE ---
Assumed care of patient at 0645, patient appears to be in no apparent distress this am, sleeping, respirations even and unlabored. Continue plan of care for inpatient bedsearch
[2024-07-30 09:40] VITALS: BP 158/86; PULSE 71; RESP 16; TEMP 37.1; O2SAT 99
--- NOTE | 2024-07-30 11:02 | PC.NURSE ---
Pt reports that he feels as though he is withdrawing, CIWA score of 14. MD Sidhu made aware via tiger text at this time
[2024-07-30] MEDS: LORazepam 1 MG TABLET 2 MG PO (11:37)
--- NOTE | 2024-07-30 13:31 | PC.NURSE ---
nurse to nurse report given
[2024-07-30 14:09] VITALS: BP 144/85; PULSE 86; RESP 16; TEMP 36.9; O2SAT 97
[2024-07-30 14:11] VITALS: BMI 26.3
[2024-07-30 14:52] LABS: Alanine Aminotransferase 25 U/L (0-40); Albumin Level 3.7 g/dL (3.5-5.0); Alkaline Phosphatase 77 U/L (39-117); Anion Gap 11 (12-20); Aspartate Amino Transferase 20 U/L (5-37); Bilirubin Total 0.3 mg/dL (0.0-1.0); Blood Urea Nitrogen 16 mg/dL (9-16); Calcium 8.3 mg/dL (8.4-10.2); Carbon Dioxide 26 mmol/L (22-29); Chloride 110 mmol/L (96-108); Estimated Glomerular Filt Rate > 60; Glucose Random 100 mg/dL (60-115); Potassium 3.8 mmol/L (3.3-5.1); Sodium 143 mmol/L (135-145); Total Protein 6.6 g/dL (6.5-8.0)
--- NOTE | 2024-07-30 15:22 | PC.NURSE ---
This is the 1st admission for this 44 y.o. male to M3 unit at [facility] [place] [place]. Hx prior hospitalization to M5 unit. Hx substance hospitalizations. Referred by [facility] [place] [place] Care Team with Dx Depression, Unspecified, Cocaine Use Disorder. Reports daily etoh use, 7-8 drinks daily. Tox screen + cocaine, etoh <10. Reports last drinking 2 fifths of vodka, 8-9 beers on 07/28/24. CIWA ordered, accepting of addictions counselor consult. Nurse to nurse done prior to admission to unit. Arrived on unit at 1358 and placed on 15 min safety checks. Skin check/cover inspector done upon admission with 2 staff present. Precipitating events to admission: Self presented to [facility] [place] [place] ED reporting bad thoughts and hopelessness. Endorsed SI, no plan. Reported crack cocaine and etoh use. Cooperative during admission process. Alert and oriented x4. Reported command AH to kill self and VH of people while in ED. Denies AH/VH currently. Rates depression #7.5, anxiety #8-9 on scale 1-10(10 worse). Stressors reported: of sister 2 years ago, homelessness. Alert and oriented x4. Admission orders received from Brigitte Mandujano, prescriber. Arrived on unit Section 12A status, signed CV after meeting with provider. No current medical issues reported. WBC 11.6, urine results-trace leukocytes, WBC 6-10. Denies urinary/respiratory issues.
--- NOTE | 2024-07-30 16:10 | P.HPPS_ITS ---
[facility] Date of Service: 07/30/24 Chief Complaint: crisis Sources of Information: patient interviewed, chart reviewed and crisis/core team assessment reviewed HPI Subjective Notes: Ortiz Warning and Conditional Voluntary Narrative: Patient is a 44-year-old male with history of MDD, PTSD, cocaine use disorder and alcohol use disorder who self presented to [facility] due to suicidal ideation secondary to feelings of hopelessness. Per crisis report, patient presented reporting having bad thoughts and thoughts of hopelessness . Endorsed suicidal ideation with no plan. He reports using crack cocaine and alcohol. Patient reports feeling depressed and stressed out all the time ; reports he has not eaten in days and does not sleep well as he is homeless. He reports auditory hallucinations that tell him to harm himself and visual hallucinations of people . Patient's baseline is not currently known due to his history of chronic substance and alcohol use as well as noncompliance with treatment and medications. History of being connected with [facility] but is currently not connected with any outpatient psychiatric providers. He was recently referred to [facility] when discharged from however, admits that he did not follow up with his appointments. Patient reports consuming a pint of vodka daily and smoking an 8 ball of crack daily. history of 2 previous overdoses on opiates in 2022. During admission assessment, patient presents alert and oriented x3, calm and cooperative. Patient reports feeling depressed ; patient stated, I do not want to live. I feel like there is nothing to live for. Life is making me depressed and my family situation. I want to get on my meds again and maybe go to a program after here . Patient reports suicidal ideation with no plan. Denies HI/VH/AH. Patient reports he would like to be restarted on the medications that he was taking on . He reports not taking medications for the last 2 months because he did not know what pharmacy that they were sent to . Past Psychiatric History: No history of psychiatric hospitalizations No history of SI or SA No therapeutic medication trials Medical Evaluation Reviewed: Yes [facility] Medical History Polysubstance abuse Suicidal ideation PTSD (post-traumatic stress disorder) MDD (major depressive disorder), recurrent, severe, with psychosis Cocaine use disorder Alcohol use disorder Homeless Alcohol abuse Polysubstance abuse Family History: Mother: depressed, anxiety oldest sister: depressed, anxiety Social History: Homeless. Single. Two adult children. Unemployed. Substance History: Patient reports smoking a lot of crack and drinking a lot of alcohol. Denies any other substance use. Trauma History: Reports history of trauma; does not disclose Diagnostics Vital Signs (24Hr): Vital Signs - 24 hr 07/29/24 20:59 07/30/24 09:40 07/30/24 14:09 Temperature 98.7 F 98.8 F 98.4 F Pulse Rate 72 71 86 Respiratory Rate 16 16 16 Blood Pressure 146/78 H 158/86 H 144/85 H Pulse Oximetry 99 99 97 Oxygen Delivery Method Room Air Room Air Room Air BMI result Body Mass Index 26.3 Labs 07/29/24 02:41 07/30/24 14:18 Labs: Laboratory Results - last 48 hr 07/29/24 07/29/24 07/30/24 02:41 04:10 14:18 WBC 11.6 H RBC 4.82 Hgb 13.1 L Hct 41.2 L MCV 85.5 MCH 27.2 MCHC 31.8 RDW 14.1 Plt Count 312 MPV 8.2 L Immature Gran % (Auto) 0.2 Neut % (Auto) 76.2 H Lymph % (Auto) 15.9 L [place] % (Auto) 7.3 Eos % (Auto) 0.1 Baso % (Auto) 0.3 Lymph # (Auto) 1.8 [place] # (Auto) 0.8 Eos # (Auto) 0.0 Baso # (Auto) 0.0 Abs Immat Gran (auto) 0.02 Absolute Neuts (auto) 8.8 H Absolute Nucleated RBC 0.000 Nucleated RBC % (auto) 0.0 Sodium 138 143 Potassium 3.9 3.8 Chloride 106 110 H Carbon Dioxide 24 26 Anion Gap 12 11 L BUN 13 16 Creatinine 0.95 1.16 Estim Creat Clear Calc 90.4 74.0 Estimated GFR > 60 > 60 Random Glucose 73 100 Calcium 8.5 8.3 L Total Bilirubin 1.0 0.3 AST 33 20 ALT 28 25 Alkaline Phosphatase 84 77 Total Protein 7.1 6.6 Albumin 4.0 3.7 Urine Color Yellow Urine Appearance Clear Urine pH 7.0 Ur Specific [place] 1.010 Urine Protein Negative Urine Glucose (UA) Negative Urine Ketones Negative Urine Blood Negative Urine Nitrite Negative Ur Leukocyte Esterase Trace H Urine RBC 0-2 Urine WBC 6-10 H Ur Squamous Epith Cells 0-2 Urine Bacteria None Seen Hyaline Casts 0-2 Salicylates < 5.0 L Urine Opiates Screen Not Detected Ur Buprenorphine Scrn Not Detected Ur Oxycodone Screen Not Detected Urine Methadone Screen Not Detected Urine Fentanyl Screen Not Detected Acetaminophen < 3 Ur Barbiturates Screen Not Detected Ur Phencyclidine Scrn Not Detected Ur Amphetamines Screen Not Detected U Benzodiazepines Scrn Not Detected Urine Cocaine Screen POSITIVE H U Marijuana (THC) Screen Not Detected Ethyl Alcohol < 10 Meds/Allergies Meds Home Medications ?Medication ?Instructions ?Recorded ?Confirmed ?Type No Known Home Meds 07/29/24 07/29/24 History Allergies Allergies Allergy/AdvReac Type Severity Reaction Status Date / Time shellfish derived [shellfish] Allergy Difficulty Verified 07/29/24 02:33 Breathing Mental Status Exam Mental Status Exam Narrative: Pt is alert and oriented; behavior is cooperative, calm; dressed in casual attire; mood is described as depressed ; eye contact appropriate; Speech is normal rate, volume and not pressured; thought process is organized and goal directed; Thought content is on tx; otherwise pertinent to relevant topics and without any delusional content, paranoid ideations or grandiosity; denies HI/VH/AH. Patient reports suicidal ideation with no plan. Assessment & Plan Assessment & Plan (1) MDD (major depressive disorder), recurrent, severe, with psychosis: Status: Acute Code(s): F33.3 - Major depressive disorder, recurrent, severe with psychotic symptoms (2) PTSD (post-traumatic stress disorder): Status: Acute Code(s): F43.10 - Post-traumatic stress disorder, unspecified (3) Cocaine use disorder: Status: Acute Code(s): F14.10 - Cocaine abuse, uncomplicated (4) Alcohol use disorder: Status: Acute Code(s): F10.90 - Alcohol use, unspecified, uncomplicated (5) Homeless: Status: Acute Code(s): Z59.00 - Homelessness unspecified Plan Patient is a 44-year-old male with history of MDD, PTSD, cocaine use disorder and alcohol use disorder who self presented to [facility] due to suicidal ideation secondary to feelings of hopelessness. Plan: CV 15 minute safety checks CIWA protocol Continue medications from previous hospitalization on M5 Encourage groups Referral to outpatient psychiatric providers ? Referral to substance abuse program Discharge planning Patient educated on: diagnosis, medication risk/benefits and substance abuse Reason for continued inpatient stay Substantial Risk for: harm to self and med/psych decompensation Statement Statement: I have reviewed the history and physical and performed a pertinent examination on my patient. No changes have occurred unless specified. If the History and Physical was not performed prior to admission, the Hospitalist's service will be consulted for completing the admission physical. Time Spent With Patient Time: Total time managing care of this patient today _60___ minutes.
[2024-07-30] MEDS: LORazepam 1 MG TABLET PO ×2 (16:14→20:41)
[2024-07-30 20:13] VITALS: BP 142/88; PULSE 113; TEMP 37.1; O2SAT 97
[2024-07-30] MEDS: Prazosin HCL 1 MG CAPSULE 2 MG PO (20:35)
[2024-07-30] MEDS: traZODone HCL 100 MG TABLET PO (20:41)
[2024-07-30] MEDS: hydrOXYzine HCL 50 MG TABLET PO (20:41)
[2024-07-31 07:20] VITALS: BP 121/59; PULSE 92; RESP 16; TEMP 36.8; O2SAT 97
[2024-07-31] MEDS: buPROPion HCl XL 150 MG TAB.ER.24H PO (08:56)
[2024-07-31] MEDS: LORazepam 1 MG TABLET PO ×2 (08:56→12:28)
[2024-07-31] MEDS: Thiamine HCL 100 MG TABLET PO (08:56)
[2024-07-31] MEDS: hydrOXYzine HCL 50 MG TABLET PO ×2 (08:56→22:50)
[2024-07-31 09:00] LABS: Cholesterol 145 mg/dL (<200); HDL Cholesterol 39 mg/dL (>40); LDL Cholesterol Calculated 77 mg/dL (<100); Triglycerides 148 mg/dL (<150)
--- NOTE | 2024-07-31 12:40 | HO.PSYCHPN ---
Subjective Subjective Date of Service: 07/31/24 Reason For Visit: crisis Subjective Notes: Conditional Voluntary Interim History: Laying in bed. sleeping most of day. Pt woke up briefly to speak with T/W; pt continues to report feeling depressed. Continues to report suicidal ideation with no plan. denies HI/VH/AH. Pt requested to end assessment so he can sleep it off . Medication Compliance: Yes Side effects from medications: No Attending Groups: No Review of Systems Constitutional: Reports as per HPI Eyes: Reports as per HPI Reports as per HPI Cardiovascular: Reports as per HPI Respiratory: Reports as per HPI Gastrointestinal: Reports as per HPI Genitourinary: Reports as per HPI Musculoskeletal: Reports as per HPI Skin/Breast: Reports as per HPI Reports as per HPI Psychiatric: Reports as per HPI Endocrine: Reports as per HPI Hematologic/Lymphatic: Reports as per HPI Allergic/Immunologic: Reports as per HPI Mental Status Exam Mental Status Exam Patient Appearance: Appropriate Patient Orientation: Person, Place, Time and Situation Level of Consciousness: Drowsy Patient Behavior: Appropriate Mood Description: Depressed Affect Description: Blunted Ability to Follow Directions: Good Speech Pattern: Clear Memory Description: Intact Hallucinations: None Delusions: Not Present Thought Process: Intact Thought Content: positive for Intact Diagnostics Vital Signs (24Hr): Vital Signs - 24 hr 07/30/24 14:09 07/30/24 20:13 07/31/24 07:20 Temperature 98.4 F 98.7 F 98.2 F Pulse Rate 86 113 H 92 Respiratory Rate 16 16 Blood Pressure 144/85 H 142/88 H 121/59 L Pulse Oximetry 97 97 97 Oxygen Delivery Method Room Air Room Air Room Air BMI result Body Mass Index 26.3 Labs 07/29/24 02:41 07/30/24 14:18 Labs: Laboratory Results - last 48 hr 07/30/24 07/31/24 14:18 07:44 Sodium 143 Potassium 3.8 Chloride 110 H Carbon Dioxide 26 Anion Gap 11 L BUN 16 Creatinine 1.16 Estim Creat Clear Calc 74.0 Estimated GFR > 60 Random Glucose 100 Calcium 8.3 L Total Bilirubin 0.3 AST 20 ALT 25 Alkaline Phosphatase 77 Total Protein 6.6 Albumin 3.7 Triglycerides 148 Cholesterol 145 LDL Cholesterol, Calc 77 HDL Cholesterol 39 L Medications Medications Current Medications Acetaminophen (Acetaminophen 325 Mg Tablet) 650 mg PO Q6H PRN PRN Reason: Headache/Pain Mild Scale (1-3) Al Hydroxide/Mg Hydroxide (Magnesium Hydrox/Alum Hydrox 30 Ml Oral.Susp) 30 ml PO Q6H PRN PRN Reason: Heartburn/Nausea Bupropion HCl (Bupropion Hcl Xl 150 Mg Tab.Er.24h) 150 mg PO DAILY [facility] Last Admin: 07/31/24 08:56 Dose: 150 mg Hydroxyzine HCl (Hydroxyzine Hcl 50 Mg Tablet) 50 mg PO TID PRN PRN Reason: Anxiety Last Admin: 07/31/24 08:56 Dose: 50 mg Lorazepam (Lorazepam 1 Mg Tablet) 1 mg PO Q2H PRN PRN Reason: CIWA 8-11 Last Admin: 07/31/24 12:28 Dose: 1 mg Lorazepam (Lorazepam 1 Mg Tablet) 2 mg PO Q2H PRN PRN Reason: CIWA 12-15 Lorazepam (Lorazepam 1 Mg Tablet) 3 mg PO Q2H PRN PRN Reason: CIWA > 15, and call Magnesium Hydroxide (Milk Of Magnesia 30 Ml Oral.Susp) 30 ml PO DAILY PRN PRN Reason: Constipation Nicotine (Nicotine 21 Mg Patch.Td24) 21 mg TRANSDERMA DAILY [facility] Last Admin: 07/31/24 08:59 Dose: Not Given Nicotine Polacrilex (Nicotine Polacrilex 2 Mg Gum) 4 mg BUCCAL Q2H PRN PRN Reason: Nicotine Cravings Prazosin HCl (Prazosin Hcl 1 Mg Capsule) 2 mg PO BEDTIME [facility]; Protocol Last Admin: 07/30/24 20:35 Dose: 2 mg Thiamine HCl (Thiamine Hcl 100 Mg Tablet) 100 mg PO DAILY [facility] Last Admin: 07/31/24 08:56 Dose: 100 mg Trazodone HCl (Trazodone Hcl 100 Mg Tablet) 100 mg PO BEDTIME PRN PRN Reason: Insomnia Last Admin: 07/30/24 20:41 Dose: 100 mg Allergies Allergies Allergy/AdvReac Type Severity Reaction Status Date / Time shellfish derived [shellfish] Allergy Difficulty Verified 07/29/24 02:33 Breathing Assessment & Plan Assessment & Plan (1) MDD (major depressive disorder), recurrent, severe, with psychosis: Status: Acute Code(s): F33.3 - Major depressive disorder, recurrent, severe with psychotic symptoms (2) PTSD (post-traumatic stress disorder): Status: Acute Code(s): F43.10 - Post-traumatic stress disorder, unspecified (3) Cocaine use disorder: Status: Acute Code(s): F14.10 - Cocaine abuse, uncomplicated (4) Alcohol use disorder: Status: Acute Code(s): F10.90 - Alcohol use, unspecified, uncomplicated (5) Homeless: Status: Acute Code(s): Z59.00 - Homelessness unspecified Plan Patient is a 44-year-old male with history of MDD, PTSD, cocaine use disorder and alcohol use disorder who self presented to [facility] due to suicidal ideation secondary to feelings of hopelessness. Plan: CV 15 minute safety checks CIWA protocol Continue medications from previous hospitalization on M5 Encourage groups Referral to outpatient psychiatric providers ? Referral to substance abuse program Discharge planning 07/31:Laying in bed. sleeping most of day. Pt woke up briefly to speak with T/W; pt continues to report feeling depressed. Continues to report suicidal ideation with no plan. denies HI/VH/AH. Pt requested to end assessment so he can sleep it off . pt scoring on CIWA. nursing to monitor. continue current tx plan. Patient educated on: medication risk/benefits Reason for continued inpatient stay Substantial Risk for: harm to self and med/psych decompensation Time Spent With Patient Time: Total time managing care of this patient today _20___ minutes.
--- NOTE | 2024-07-31 15:27 | MHC.CLN ---
[address] CONSULT. EMR REVIEWED. NO NOTED REASON FOR CONSULT PLEASE CONSULT AGAIN IF NEEDED.
[2024-07-31 19:50] VITALS: BP 155/74; PULSE 87; RESP 16; TEMP 36.9; O2SAT 97
[2024-07-31 22:50] VITALS: BP 135/75
[2024-07-31] MEDS: Prazosin HCL 1 MG CAPSULE 2 MG PO (22:50)
[2024-07-31] MEDS: traZODone HCL 100 MG TABLET PO (22:50)
[2024-08-01 07:00] VITALS: BMI 27.3
[2024-08-01 07:20] VITALS: BP 125/58; PULSE 79; RESP 16; TEMP 36.9; O2SAT 98
[2024-08-01] MEDS: buPROPion HCl XL 150 MG TAB.ER.24H PO (08:46)
[2024-08-01] MEDS: Thiamine HCL 100 MG TABLET PO (08:46)
--- NOTE | 2024-08-01 10:59 | MHC.RECOVRN ---
AUDIT-C Brief Intervention Pt had positive screen for unhealthy alcohol use on admission, subsequently met with t/w to discuss alcohol use and recovery supports/options. This short story writer met with patient to discuss current alcohol use and concerns related to increased risk of alcohol related problems.? Pt reports 1.5 gallons vodka daily x 2 months. Discussed how alcohol use has impacted health, including negative impact on mental health. Pts goal is abstinence. Withdrawal History: denies hx withdrawal seizures Treatment History: ATS x 13, CSS x 7, [facility], [facility], pt reports receiving Vivitrol x1 (feels it was not helpful) Pt reports longest period of recovery has been 6 months years ago. Supports:?sister Discussed risk reduction strategies including drinking below the recommended limit. Provided pt with written resources including information on inpatient and outpatient treatment, KASSANDRA, harm reduction, and recovery coaching. Pt plans to continue with treatment and be accepted to [facility]. Pt provided with t/w contact information if questions or concerns arise. Denies other questions or concerns at this time.?
--- NOTE | 2024-08-01 14:44 | P.PNPSI_ITS ---
Subjective Subjective Date of Service: 08/01/24 Reason For Visit: crisis Subjective Notes: Conditional Voluntary Interim History: Patient reports feeling a little better today;pt stated, I'm still having suicidal thoughts but not as much . He feels his withdrawal symptoms are improving. States he will try to go shower and go to groups today. denies HI/VH/AH. per nursing, slept 8 hours. Medication Compliance: Yes Side effects from medications: No Review of Systems Constitutional: Reports as per HPI Eyes: Reports as per HPI Reports as per HPI Cardiovascular: Reports as per HPI Respiratory: Reports as per HPI Gastrointestinal: Reports as per HPI Genitourinary: Reports as per HPI Musculoskeletal: Reports as per HPI Skin/Breast: Reports as per HPI Reports as per HPI Psychiatric: Reports as per HPI Endocrine: Reports as per HPI Hematologic/Lymphatic: Reports as per HPI Allergic/Immunologic: Reports as per HPI Mental Status Exam Mental Status Exam Narrative: Pt is alert and oriented; behavior is cooperative, calm; dressed in casual attire; mood is described as depressed ; eye contact appropriate; Speech is normal rate, volume and not pressured; thought process is organized; Thought content is on tx; denies HI/VH/AH. Patient reports suicidal ideation with no plan. Diagnostics Vital Signs (24Hr): Vital Signs - 24 hr 07/31/24 19:50 07/31/24 22:50 08/01/24 07:20 Temperature 98.4 F 98.5 F Pulse Rate 87 79 Respiratory Rate 16 16 Blood Pressure 155/74 H 135/75 125/58 L Pulse Oximetry 97 98 Oxygen Delivery Method Room Air Room Air BMI result Body Mass Index 27.3 Labs 07/29/24 02:41 07/30/24 14:18 Labs: Laboratory Results - last 48 hr 07/30/24 07/31/24 14:18 07:44 Sodium 143 Potassium 3.8 Chloride 110 H Carbon Dioxide 26 Anion Gap 11 L BUN 16 Creatinine 1.16 Estim Creat Clear Calc 74.0 Estimated GFR > 60 Random Glucose 100 Calcium 8.3 L Total Bilirubin 0.3 AST 20 ALT 25 Alkaline Phosphatase 77 Total Protein 6.6 Albumin 3.7 Triglycerides 148 Cholesterol 145 LDL Cholesterol, Calc 77 HDL Cholesterol 39 L Medications Medications Current Medications Acetaminophen (Acetaminophen 325 Mg Tablet) 650 mg PO Q6H PRN PRN Reason: Headache/Pain Mild Scale (1-3) Al Hydroxide/Mg Hydroxide (Magnesium Hydrox/Alum Hydrox 30 Ml Oral.Susp) 30 ml PO Q6H PRN PRN Reason: Heartburn/Nausea Bupropion HCl (Bupropion Hcl Xl 150 Mg Tab.Er.24h) 150 mg PO DAILY [facility] Last Admin: 08/01/24 08:46 Dose: 150 mg Hydroxyzine HCl (Hydroxyzine Hcl 50 Mg Tablet) 50 mg PO TID PRN PRN Reason: Anxiety Last Admin: 07/31/24 22:50 Dose: 50 mg Lorazepam (Lorazepam 1 Mg Tablet) 1 mg PO Q2H PRN PRN Reason: CIWA 8-11 Last Admin: 07/31/24 12:28 Dose: 1 mg Lorazepam (Lorazepam 1 Mg Tablet) 2 mg PO Q2H PRN PRN Reason: CIWA 12-15 Lorazepam (Lorazepam 1 Mg Tablet) 3 mg PO Q2H PRN PRN Reason: CIWA > 15, and call Magnesium Hydroxide (Milk Of Magnesia 30 Ml Oral.Susp) 30 ml PO DAILY PRN PRN Reason: Constipation Nicotine (Nicotine 21 Mg Patch.Td24) 21 mg TRANSDERMA DAILY [facility] Last Admin: 08/01/24 08:46 Dose: Not Given Nicotine Polacrilex (Nicotine Polacrilex 2 Mg Gum) 4 mg BUCCAL Q2H PRN PRN Reason: Nicotine Cravings Prazosin HCl (Prazosin Hcl 1 Mg Capsule) 2 mg PO BEDTIME [facility]; Protocol Last Admin: 07/31/24 22:50 Dose: 2 mg Thiamine HCl (Thiamine Hcl 100 Mg Tablet) 100 mg PO DAILY [facility] Last Admin: 08/01/24 08:46 Dose: 100 mg Trazodone HCl (Trazodone Hcl 100 Mg Tablet) 100 mg PO BEDTIME PRN PRN Reason: Insomnia Last Admin: 07/31/24 22:50 Dose: 100 mg Allergies Allergies Allergy/AdvReac Type Severity Reaction Status Date / Time shellfish derived [shellfish] Allergy Difficulty Verified 07/29/24 02:33 Breathing Assessment & Plan Assessment & Plan (1) MDD (major depressive disorder), recurrent, severe, with psychosis: Status: Acute Code(s): F33.3 - Major depressive disorder, recurrent, severe with psychotic symptoms (2) PTSD (post-traumatic stress disorder): Status: Acute Code(s): F43.10 - Post-traumatic stress disorder, unspecified (3) Cocaine use disorder: Status: Acute Code(s): F14.10 - Cocaine abuse, uncomplicated (4) Alcohol use disorder: Status: Acute Code(s): F10.90 - Alcohol use, unspecified, uncomplicated (5) Homeless: Status: Acute Code(s): Z59.00 - Homelessness unspecified Plan Patient is a 44-year-old male with history of MDD, PTSD, cocaine use disorder and alcohol use disorder who self presented to [facility] due to suicidal ideation secondary to feelings of hopelessness. Plan: CV 15 minute safety checks CIWA protocol Continue medications from previous hospitalization on M5 Encourage groups Referral to outpatient psychiatric providers ? Referral to substance abuse program Discharge planning 07/31:Laying in bed. sleeping most of day. Pt woke up briefly to speak with T/W; pt continues to report feeling depressed. Continues to report suicidal ideation with no plan. denies HI/VH/AH. Pt requested to end assessment so he can sleep it off . pt scoring on CIWA. nursing to monitor. continue current tx plan. 08/01: Patient reports feeling a little better today;pt stated, I'm still having suicidal thoughts but not as much . He feels his withdrawal symptoms are improving. States he will try to go shower and go to groups today. denies HI/VH/AH. per nursing, slept 8 hours. Continue current tx plan. Patient educated on: diagnosis, medication risk/benefits and therapeutic strategies Reason for continued inpatient stay Substantial Risk for: harm to self and med/psych decompensation Time Spent With Patient Time: Total time managing care of this patient today _20___ minutes.
[2024-08-01 20:00] VITALS: BP 142/65; PULSE 71; RESP 16; TEMP 36.5; O2SAT 99
[2024-08-01] MEDS: Prazosin HCL 1 MG CAPSULE 2 MG PO (20:37)
[2024-08-01] MEDS: traZODone HCL 100 MG TABLET PO (20:38)
[2024-08-01] MEDS: hydrOXYzine HCL 50 MG TABLET PO (20:39)
[2024-08-02 07:20] VITALS: BP 124/57; PULSE 74; RESP 14; TEMP 36.9; O2SAT 95
--- NOTE | 2024-08-02 09:06 | HO.PSYCHPN ---
Subjective Subjective Date of Service: 08/02/24 Reason For Visit: crisis Subjective Notes: Conditional Voluntary Interim History: Laying in bed. keeping to self. denies withdrawal symptoms;CIWA D/C'd. Patient continues to report feeling depressed ; passive SI with no plan. denies HI/VH/AH. Increased Wellbutrin XL to 300mg PO daily'pt aware. Medication Compliance: Yes Side effects from medications: No Review of Systems Constitutional: Reports as per HPI Eyes: Reports as per HPI Reports as per HPI Cardiovascular: Reports as per HPI Respiratory: Reports as per HPI Gastrointestinal: Reports as per HPI Genitourinary: Reports as per HPI Musculoskeletal: Reports as per HPI Skin/Breast: Reports as per HPI Reports as per HPI Psychiatric: Reports as per HPI Endocrine: Reports as per HPI Hematologic/Lymphatic: Reports as per HPI Allergic/Immunologic: Reports as per HPI Mental Status Exam Mental Status Exam Narrative: Pt is alert and oriented; behavior is cooperative, calm; dressed in casual attire; mood is described as depressed ; eye contact appropriate; Speech is normal rate, volume and not pressured; thought process is organized; Thought content is on tx; denies HI/VH/AH. Patient reports passive SI with no plan. Diagnostics Vital Signs (24Hr): Vital Signs - 24 hr 08/01/24 20:00 08/02/24 07:20 Temperature 97.7 F 98.4 F Pulse Rate 71 74 Respiratory Rate 16 14 Blood Pressure 142/65 H 124/57 L Pulse Oximetry 99 95 Oxygen Delivery Method Room Air Room Air BMI result Body Mass Index 27.3 Labs 07/29/24 02:41 07/30/24 14:18 Medications Medications Current Medications Acetaminophen (Acetaminophen 325 Mg Tablet) 650 mg PO Q6H PRN PRN Reason: Headache/Pain Mild Scale (1-3) Al Hydroxide/Mg Hydroxide (Magnesium Hydrox/Alum Hydrox 30 Ml Oral.Susp) 30 ml PO Q6H PRN PRN Reason: Heartburn/Nausea Bupropion HCl (Bupropion Hcl Xl 150 Mg Tab.Er.24h) 150 mg PO DAILY SUSIE Last Admin: 08/01/24 08:46 Dose: 150 mg Hydroxyzine HCl (Hydroxyzine Hcl 50 Mg Tablet) 50 mg PO TID PRN PRN Reason: Anxiety Last Admin: 08/01/24 20:39 Dose: 50 mg Lorazepam (Lorazepam 1 Mg Tablet) 1 mg PO Q2H PRN PRN Reason: CIWA 8-11 Last Admin: 07/31/24 12:28 Dose: 1 mg Lorazepam (Lorazepam 1 Mg Tablet) 2 mg PO Q2H PRN PRN Reason: CIWA 12-15 Lorazepam (Lorazepam 1 Mg Tablet) 3 mg PO Q2H PRN PRN Reason: CIWA > 15, and call Magnesium Hydroxide (Milk Of Magnesia 30 Ml Oral.Susp) 30 ml PO DAILY PRN PRN Reason: Constipation Nicotine (Nicotine 21 Mg Patch.Td24) 21 mg TRANSDERMA DAILY [facility] Last Admin: 08/01/24 08:46 Dose: Not Given Nicotine Polacrilex (Nicotine Polacrilex 2 Mg Gum) 4 mg BUCCAL Q2H PRN PRN Reason: Nicotine Cravings Prazosin HCl (Prazosin Hcl 1 Mg Capsule) 2 mg PO BEDTIME SUSIE; Protocol Last Admin: 08/01/24 20:37 Dose: 2 mg Thiamine HCl (Thiamine Hcl 100 Mg Tablet) 100 mg PO DAILY [facility] Last Admin: 08/01/24 08:46 Dose: 100 mg Trazodone HCl (Trazodone Hcl 100 Mg Tablet) 100 mg PO BEDTIME PRN PRN Reason: Insomnia Last Admin: 08/01/24 20:38 Dose: 100 mg Allergies Allergies Allergy/AdvReac Type Severity Reaction Status Date / Time shellfish derived [shellfish] Allergy Difficulty Verified 07/29/24 02:33 Breathing Assessment & Plan Assessment & Plan (1) MDD (major depressive disorder), recurrent, severe, with psychosis: Status: Acute Code(s): F33.3 - Major depressive disorder, recurrent, severe with psychotic symptoms (2) PTSD (post-traumatic stress disorder): Status: Acute Code(s): F43.10 - Post-traumatic stress disorder, unspecified (3) Cocaine use disorder: Status: Acute Code(s): F14.10 - Cocaine abuse, uncomplicated (4) Alcohol use disorder: Status: Acute Code(s): F10.90 - Alcohol use, unspecified, uncomplicated (5) Homeless: Status: Acute Code(s): Z59.00 - Homelessness unspecified Plan Patient is a 44-year-old male with history of MDD, PTSD, cocaine use disorder and alcohol use disorder who self presented to [facility] due to suicidal ideation secondary to feelings of hopelessness. Plan: CV 15 minute safety checks CIWA protocol Continue medications from previous hospitalization on M5 Encourage groups Referral to outpatient psychiatric providers ? Referral to substance abuse program Discharge planning 07/31:Laying in bed. sleeping most of day. Pt woke up briefly to speak with T/W; pt continues to report feeling depressed. Continues to report suicidal ideation with no plan. denies HI/VH/AH. Pt requested to end assessment so he can sleep it off . pt scoring on CIWA. nursing to monitor. continue current tx plan. 08/01: Patient reports feeling a little better today;pt stated, I'm still having suicidal thoughts but not as much . He feels his withdrawal symptoms are improving. States he will try to go shower and go to groups today. denies HI/VH/AH. per nursing, slept 8 hours. Continue current tx plan. 08/02: Laying in bed. keeping to self. denies withdrawal symptoms;CIWA D/C'd. Patient continues to report feeling depressed ; passive SI with no plan. denies HI/VH/AH. Increased Wellbutrin XL to 300mg PO daily'pt aware. Patient educated on: diagnosis and medication risk/benefits Reason for continued inpatient stay Substantial Risk for: med/psych decompensation Time Spent With Patient Time: Total time managing care of this patient today _20___ minutes.
[2024-08-02] MEDS: Thiamine HCL 100 MG TABLET PO (09:15)
[2024-08-02] MEDS: buPROPion HCl XL 150 MG TAB.ER.24H PO (09:15)
[2024-08-02] MEDS: LORazepam 1 MG TABLET PO ×2 (09:15→12:26)
[2024-08-02] MEDS: Magnesium Hydrox/Alum Hydrox 30 ML ORAL.SUSP PO (12:26)
[2024-08-02 20:00] VITALS: BP 136/80; PULSE 87; RESP 16; TEMP 37.2; O2SAT 98
[2024-08-02 21:49] VITALS: BP 132/79
[2024-08-02] MEDS: traZODone HCL 100 MG TABLET PO (21:49)
[2024-08-02] MEDS: Prazosin HCL 1 MG CAPSULE 2 MG PO (21:49)
[2024-08-02] MEDS: hydrOXYzine HCL 50 MG TABLET PO (21:49)
[2024-08-03 07:35] VITALS: BP 136/73; PULSE 82; RESP 16; TEMP 36.9; O2SAT 96
[2024-08-03] MEDS: buPROPion HCl XL 300 MG TAB.ER.24H PO (08:37)
--- NOTE | 2024-08-03 10:28 | P.PNPSI_ITS ---
Subjective Subjective Date of Service: 08/03/24 Reason For Visit: crisis Interim History: Laying in bed. keeping to self. denies withdrawal symptoms. He says I am alright today but depressed. Denies SI. denies HI/VH/AH. Tolerating medications well. Denies AVH Review of Systems Review of Systems Constitutional : No Weight loss, No Fever, No Chills, No Night Sweats, No Fatigue, No Malaise ENT/Mouth : No Hearing loss, No Ear Pain, No Nasal Congestion, No Sinus Pain, No Hoarseness, No sore throat, No Rhinorrhea, No Swallowing Difficulty Eyes: No Eye Pain, No Swelling, No Redness, No Foreign Body, No Discharge, No Vision Changes Cardiovascular : No Chest Pain, No SOB, No Dyspnea on Exertion, No Orthopnea, No Edema, No Palpitations Respiratory : No Cough, No Sputum, No Wheezing, No Smoke Exposure, No Dyspnea Gastrointestinal : No Nausea, No Vomiting, No Diarrhea, No Constipation, No abdominal Pain, No Hematochezia, No Melena Genitourinary : no irregular bleeding, No Dysuria, No Urinary Frequency, No Hematuria, No Urinary Incontinence, No Urgency, No Flank Pain, No Urinary Flow Changes, No Hesitancy Musculoskeletal : No joint pain, No Myalgias, No Joint Swelling Skin : No Skin Lesions, No rash Neuro : No Weakness, No Numbness, No Paresthesias, No Loss of Consciousness, No Dizziness, No Headache Psych : No anxiety, complaining of depression, vague SI without plan, no HI, admits to polysubstance abuse and alcohol abuse Heme/Lymph: No Bruising, No Bleeding,No Lymphadenopathy Endocrine : No Polyuria, No Polydipsia, No Temperature Intolerance Constitutional: Reports as per HPI Eyes: Reports as per HPI Reports as per HPI Cardiovascular: Reports as per HPI Respiratory: Reports as per HPI Gastrointestinal: Reports as per HPI Genitourinary: Reports as per HPI Musculoskeletal: Reports as per HPI Skin/Breast: Reports as per HPI Reports as per HPI Psychiatric: Reports as per HPI Endocrine: Reports as per HPI Hematologic/Lymphatic: Reports as per HPI Allergic/Immunologic: Reports as per HPI Mental Status Exam Mental Status Exam Narrative: Pt is alert and oriented; behavior is cooperative, calm; dressed in casual attire; mood is described as depressed ; eye contact appropriate; Speech is normal rate, volume and not pressured; thought process is organized; Thought content is on tx; denies HI/VH/AH. Patient reports passive SI with no plan. Patient Appearance: Appropriate Patient Orientation: Person, Place, Time and Situation Level of Consciousness: Drowsy Patient Behavior: Appropriate Mood Description: Depressed Affect Description: Blunted Ability to Follow Directions: Good Speech Pattern: Clear Memory Description: Intact Diagnostics Vital Signs (24Hr): Vital Signs - 24 hr 08/02/24 20:00 08/02/24 21:49 08/03/24 07:35 Temperature 98.9 F 98.4 F Pulse Rate 87 82 Respiratory Rate 16 16 Blood Pressure 136/80 132/79 136/73 Pulse Oximetry 98 96 Oxygen Delivery Method Room Air Room Air BMI result Body Mass Index 27.3 Labs 07/29/24 02:41 07/30/24 14:18 Medications Medications Current Medications Acetaminophen (Acetaminophen 325 Mg Tablet) 650 mg PO Q6H PRN PRN Reason: Headache/Pain Mild Scale (1-3) Al Hydroxide/Mg Hydroxide (Magnesium Hydrox/Alum Hydrox 30 Ml Oral.Susp) 30 ml PO Q6H PRN PRN Reason: Heartburn/Nausea Last Admin: 08/02/24 12:26 Dose: 30 ml Bupropion HCl (Bupropion Hcl Xl 300 Mg Tab.Er.24h) 300 mg PO DAILY SUSIE Last Admin: 08/03/24 08:37 Dose: 300 mg Hydroxyzine HCl (Hydroxyzine Hcl 50 Mg Tablet) 50 mg PO TID PRN PRN Reason: Anxiety Last Admin: 08/02/24 21:49 Dose: 50 mg Magnesium Hydroxide (Milk Of Magnesia 30 Ml Oral.Susp) 30 ml PO DAILY PRN PRN Reason: Constipation Nicotine Polacrilex (Nicotine Polacrilex 2 Mg Gum) 4 mg BUCCAL Q2H PRN PRN Reason: Nicotine Cravings Olanzapine (Olanzapine 5 Mg Tablet) 5 mg PO Q4H PRN PRN Reason: agitation Ondansetron HCl (Ondansetron Odt 8 Mg Tab.Rapdis) 8 mg TRANSLINGU Q12H PRN PRN Reason: Nausea and Vomiting Prazosin HCl (Prazosin Hcl 1 Mg Capsule) 2 mg PO BEDTIME SUSIE; Protocol Last Admin: 08/02/24 21:49 Dose: 2 mg Trazodone HCl (Trazodone Hcl 100 Mg Tablet) 100 mg PO BEDTIME PRN PRN Reason: Insomnia Last Admin: 08/02/24 21:49 Dose: 100 mg Allergies Allergies Allergy/AdvReac Type Severity Reaction Status Date / Time shellfish derived [shellfish] Allergy Difficulty Verified 07/29/24 02:33 Breathing Assessment & Plan Assessment & Plan (1) MDD (major depressive disorder), recurrent, severe, with psychosis: Status: Acute Code(s): F33.3 - Major depressive disorder, recurrent, severe with psychotic symptoms (2) PTSD (post-traumatic stress disorder): Status: Acute Code(s): F43.10 - Post-traumatic stress disorder, unspecified (3) Cocaine use disorder: Status: Acute Code(s): F14.10 - Cocaine abuse, uncomplicated (4) Alcohol use disorder: Status: Acute Code(s): F10.90 - Alcohol use, unspecified, uncomplicated (5) Homeless: Status: Acute Code(s): Z59.00 - Homelessness unspecified Plan Patient is a 44-year-old male with history of MDD, PTSD, cocaine use disorder and alcohol use disorder who self presented to [facility] ER due to suicidal ideation secondary to feelings of hopelessness. Plan: CV 15 minute safety checks CIWA protocol Continue medications from previous hospitalization on M5 Encourage groups Referral to outpatient psychiatric providers ? Referral to substance abuse program Discharge planning 07/31:Laying in bed. sleeping most of day. Pt woke up briefly to speak with T/W; pt continues to report feeling depressed. Continues to report suicidal ideation with no plan. denies HI/VH/AH. Pt requested to end assessment so he can sleep it off . pt scoring on CIWA. nursing to monitor. continue current tx plan. 08/01: Patient reports feeling a little better today;pt stated, I'm still having suicidal thoughts but not as much . He feels his withdrawal symptoms are improving. States he will try to go shower and go to groups today. denies HI/VH/AH. per nursing, slept 8 hours. Continue current tx plan. 08/02: Laying in bed. keeping to self. denies withdrawal symptoms;CIWA D/C'd. Patient continues to report feeling depressed ; passive SI with no plan. denies HI/VH/AH. Increased Wellbutrin XL to 300mg PO daily'pt aware. 08/03: continue current management and treatment plan. Reason for continued inpatient stay Substantial Risk for: harm to self, inability to function and rapid decompensation Time Spent With Patient Time: Total time managing care of this patient today ____ minutes.
[2024-08-03 21:53] VITALS: BP 155/86; PULSE 91; RESP 16; TEMP 37.1; O2SAT 97
[2024-08-03] MEDS: Prazosin HCL 1 MG CAPSULE 2 MG PO (22:02)
[2024-08-04 07:40] VITALS: BP 132/71; PULSE 80; RESP 14; TEMP 36.4; O2SAT 98
[2024-08-04] MEDS: buPROPion HCl XL 300 MG TAB.ER.24H PO (09:21)
[2024-08-04] MEDS: hydrOXYzine HCL 50 MG TABLET PO ×2 (09:26→17:39)
--- NOTE | 2024-08-04 09:53 | P.PNPSI_ITS ---
Subjective Subjective Date of Service: 08/04/24 Reason For Visit: crisis Interim History: Laying in bed. keeping to self. Reports he didn't sleep well last night because he forgot he could take Trazodone which is why he is isolating and resting in his room. He denies withdrawal symptoms. Depressed. Denies SI. denies HI/VH/AH. Tolerating medications well. Review of Systems Review of Systems Constitutional : No Weight loss, No Fever, No Chills, No Night Sweats, No Fatigue, No Malaise ENT/Mouth : No Hearing loss, No Ear Pain, No Nasal Congestion, No Sinus Pain, No Hoarseness, No sore throat, No Rhinorrhea, No Swallowing Difficulty Eyes: No Eye Pain, No Swelling, No Redness, No Foreign Body, No Discharge, No Vision Changes Cardiovascular : No Chest Pain, No SOB, No Dyspnea on Exertion, No Orthopnea, No Edema, No Palpitations Respiratory : No Cough, No Sputum, No Wheezing, No Smoke Exposure, No Dyspnea Gastrointestinal : No Nausea, No Vomiting, No Diarrhea, No Constipation, No abdominal Pain, No Hematochezia, No Melena Genitourinary : no irregular bleeding, No Dysuria, No Urinary Frequency, No Hematuria, No Urinary Incontinence, No Urgency, No Flank Pain, No Urinary Flow Changes, No Hesitancy Musculoskeletal : No joint pain, No Myalgias, No Joint Swelling Skin : No Skin Lesions, No rash Neuro : No Weakness, No Numbness, No Paresthesias, No Loss of Consciousness, No Dizziness, No Headache Psych : No anxiety, complaining of depression, vague SI without plan, no HI, admits to polysubstance abuse and alcohol abuse Heme/Lymph: No Bruising, No Bleeding,No Lymphadenopathy Endocrine : No Polyuria, No Polydipsia, No Temperature Intolerance Constitutional: Reports as per HPI Eyes: Reports as per HPI Reports as per HPI Cardiovascular: Reports as per HPI Respiratory: Reports as per HPI Gastrointestinal: Reports as per HPI Genitourinary: Reports as per HPI Musculoskeletal: Reports as per HPI Skin/Breast: Reports as per HPI Reports as per HPI Psychiatric: Reports as per HPI Endocrine: Reports as per HPI Hematologic/Lymphatic: Reports as per HPI Allergic/Immunologic: Reports as per HPI Mental Status Exam Mental Status Exam Narrative: Pt is alert and oriented; behavior is cooperative, calm; dressed in casual attire; mood is described as depressed ; eye contact appropriate; Speech is normal rate, volume and not pressured; thought process is organized; Thought content is on tx; denies HI/VH/AH. Patient reports passive SI with no plan. Patient Appearance: Appropriate Patient Orientation: Person, Place, Time and Situation Level of Consciousness: Drowsy Patient Behavior: Appropriate Mood Description: Depressed Affect Description: Blunted Ability to Follow Directions: Good Speech Pattern: Clear Memory Description: Intact Diagnostics Vital Signs (24Hr): Vital Signs - 24 hr 08/03/24 21:53 08/04/24 07:40 Temperature 98.7 F 97.6 F Pulse Rate 91 80 Respiratory Rate 16 14 Blood Pressure 155/86 H 132/71 Pulse Oximetry 97 98 Oxygen Delivery Method Room Air Room Air BMI result Body Mass Index 27.3 Labs 07/29/24 02:41 07/30/24 14:18 Medications Medications Current Medications Acetaminophen (Acetaminophen 325 Mg Tablet) 650 mg PO Q6H PRN PRN Reason: Headache/Pain Mild Scale (1-3) Al Hydroxide/Mg Hydroxide (Magnesium Hydrox/Alum Hydrox 30 Ml Oral.Susp) 30 ml PO Q6H PRN PRN Reason: Heartburn/Nausea Last Admin: 08/02/24 12:26 Dose: 30 ml Bupropion HCl (Bupropion Hcl Xl 300 Mg Tab.Er.24h) 300 mg PO DAILY SUSIE Last Admin: 08/04/24 09:21 Dose: 300 mg Hydroxyzine HCl (Hydroxyzine Hcl 50 Mg Tablet) 50 mg PO TID PRN PRN Reason: Anxiety Last Admin: 08/04/24 09:26 Dose: 50 mg Magnesium Hydroxide (Milk Of Magnesia 30 Ml Oral.Susp) 30 ml PO DAILY PRN PRN Reason: Constipation Nicotine Polacrilex (Nicotine Polacrilex 2 Mg Gum) 4 mg BUCCAL Q2H PRN PRN Reason: Nicotine Cravings Olanzapine (Olanzapine 5 Mg Tablet) 5 mg PO Q4H PRN PRN Reason: agitation Ondansetron HCl (Ondansetron Odt 8 Mg Tab.Rapdis) 8 mg TRANSLINGU Q12H PRN PRN Reason: Nausea and Vomiting Prazosin HCl (Prazosin Hcl 1 Mg Capsule) 2 mg PO BEDTIME SUSIE; Protocol Last Admin: 08/03/24 22:02 Dose: 2 mg Trazodone HCl (Trazodone Hcl 100 Mg Tablet) 100 mg PO BEDTIME PRN PRN Reason: Insomnia Last Admin: 08/02/24 21:49 Dose: 100 mg Allergies Allergies Allergy/AdvReac Type Severity Reaction Status Date / Time shellfish derived [shellfish] Allergy Difficulty Verified 07/29/24 02:33 Breathing Assessment & Plan Assessment & Plan (1) MDD (major depressive disorder), recurrent, severe, with psychosis: Status: Acute Code(s): F33.3 - Major depressive disorder, recurrent, severe with psychotic symptoms (2) PTSD (post-traumatic stress disorder): Status: Acute Code(s): F43.10 - Post-traumatic stress disorder, unspecified (3) Cocaine use disorder: Status: Acute Code(s): F14.10 - Cocaine abuse, uncomplicated (4) Alcohol use disorder: Status: Acute Code(s): F10.90 - Alcohol use, unspecified, uncomplicated (5) Homeless: Status: Acute Code(s): Z59.00 - Homelessness unspecified Plan Patient is a 44-year-old male with history of MDD, PTSD, cocaine use disorder and alcohol use disorder who self presented [place] [facility] due to suicidal ideation secondary to feelings of hopelessness. Plan: CV 15 minute safety checks CIWA protocol Continue medications from previous hospitalization on M5 Encourage groups Referral to outpatient psychiatric providers ? Referral to substance abuse program Discharge planning 07/31:Laying in bed. sleeping most of day. Pt woke up briefly to speak with T/W; pt continues to report feeling depressed. Continues to report suicidal ideation with no plan. denies HI/VH/AH. Pt requested to end assessment so he can sleep it off . pt scoring on CIWA. nursing to monitor. continue current tx plan. 08/01: Patient reports feeling a little better today;pt stated, I'm still having suicidal thoughts but not as much . He feels his withdrawal symptoms are improving. States he will try to go shower and go to groups today. denies HI/VH/AH. per nursing, slept 8 hours. Continue current tx plan. 08/02: Laying in bed. keeping to self. denies withdrawal symptoms;CIWA D/C'd. Patient continues to report feeling depressed ; passive SI with no plan. denies HI/VH/AH. Increased Wellbutrin XL to 300mg PO daily'pt aware. 08/03: continue current management and treatment plan. 08/04: Switched Trazodone to QHS. Continue management and treatment plan. Reason for continued inpatient stay Substantial Risk for: harm to self, inability to function and rapid decompensation Time Spent With Patient Time: Total time managing care of this patient today ____ minutes.
[2024-08-04 20:00] VITALS: BP 144/69; PULSE 72; RESP 16; TEMP 37.1; O2SAT 99
[2024-08-04 22:15] VITALS: BP 148/78
[2024-08-04] MEDS: Prazosin HCL 1 MG CAPSULE 2 MG PO (22:15)
[2024-08-04] MEDS: traZODone HCL 100 MG TABLET PO (22:16)
[2024-08-05] MEDS: traZODone HCL 100 MG TABLET PO ×2 (03:19→21:34)
[2024-08-05] MEDS: OLANZapine 5 MG TABLET PO (03:19)
[2024-08-05 07:39] VITALS: BP 126/60; PULSE 71; RESP 16; TEMP 36.8; O2SAT 97
[2024-08-05] MEDS: buPROPion HCl XL 300 MG TAB.ER.24H PO (09:12)
--- NOTE | 2024-08-05 10:18 | HO.PSYCHPN ---
Subjective Subjective Date of Service: 08/05/24 Reason For Visit: crisis Subjective Notes: Conditional Voluntary Interim History: Keeping to self. laying in bed. reports feeling fine today; states he does not want to go to the [facility] and [facility]. Pt stated, I'm just going to focus on staying sober . denies SI/HI/VH/AH. Social work discussed with pt steps to get into sober house, which involve going to a program prior to being accepted to sober living. Medication Compliance: Yes Side effects from medications: No Attending Groups: No Mental Status Exam Mental Status Exam Narrative: Pt is alert and oriented; behavior is cooperative and calm; dressed in casual attire; mood is described as good ; eye contact appropriate; Speech is normal rate, volume and not pressured; thought process is organized and goal directed; Thought content is on tx; denies SI/HI/VH/AH. Diagnostics Vital Signs (24Hr): Vital Signs - 24 hr 08/04/24 20:00 08/04/24 22:15 08/05/24 07:39 Temperature 98.7 F 98.3 F Pulse Rate 72 71 Respiratory Rate 16 16 Blood Pressure 144/69 H 148/78 H 126/60 Pulse Oximetry 99 97 Oxygen Delivery Method Room Air Room Air BMI result Body Mass Index 27.3 Labs 07/29/24 02:41 07/30/24 14:18 Medications Medications Current Medications Acetaminophen (Acetaminophen 325 Mg Tablet) 650 mg PO Q6H PRN PRN Reason: Headache/Pain Mild Scale (1-3) Al Hydroxide/Mg Hydroxide (Magnesium Hydrox/Alum Hydrox 30 Ml Oral.Susp) 30 ml PO Q6H PRN PRN Reason: Heartburn/Nausea Last Admin: 08/02/24 12:26 Dose: 30 ml Bupropion HCl (Bupropion Hcl Xl 300 Mg Tab.Er.24h) 300 mg PO DAILY SUSIE Last Admin: 08/05/24 09:12 Dose: 300 mg Hydroxyzine HCl (Hydroxyzine Hcl 50 Mg Tablet) 50 mg PO TID PRN PRN Reason: Anxiety Last Admin: 08/04/24 17:39 Dose: 50 mg Magnesium Hydroxide (Milk Of Magnesia 30 Ml Oral.Susp) 30 ml PO DAILY PRN PRN Reason: Constipation Nicotine Polacrilex (Nicotine Polacrilex 2 Mg Gum) 4 mg BUCCAL Q2H PRN PRN Reason: Nicotine Cravings Olanzapine (Olanzapine 5 Mg Tablet) 5 mg PO Q4H PRN PRN Reason: agitation Last Admin: 08/05/24 03:19 Dose: 5 mg Ondansetron HCl (Ondansetron Odt 8 Mg Tab.Rapdis) 8 mg TRANSLINGU Q12H PRN PRN Reason: Nausea and Vomiting Prazosin HCl (Prazosin Hcl 1 Mg Capsule) 2 mg PO BEDTIME SUSIE; Protocol Last Admin: 08/04/24 22:15 Dose: 2 mg Trazodone HCl (Trazodone Hcl 100 Mg Tablet) 100 mg PO BEDTIME SUSIE Last Admin: 08/05/24 03:19 Dose: 100 mg Allergies Allergies Allergy/AdvReac Type Severity Reaction Status Date / Time shellfish derived [shellfish] Allergy Difficulty Verified 07/29/24 02:33 Breathing Assessment & Plan Assessment & Plan (1) MDD (major depressive disorder), recurrent, severe, with psychosis: Status: Acute Code(s): F33.3 - Major depressive disorder, recurrent, severe with psychotic symptoms (2) PTSD (post-traumatic stress disorder): Status: Acute Code(s): F43.10 - Post-traumatic stress disorder, unspecified (3) Cocaine use disorder: Status: Acute Code(s): F14.10 - Cocaine abuse, uncomplicated (4) Alcohol use disorder: Status: Acute Code(s): F10.90 - Alcohol use, unspecified, uncomplicated (5) Homeless: Status: Acute Code(s): Z59.00 - Homelessness unspecified Plan Patient is a 44-year-old male with history of MDD, PTSD, cocaine use disorder and alcohol use disorder who self presented to [facility] [place] [facility] due to suicidal ideation secondary to feelings of hopelessness. Plan: CV 15 minute safety checks CIWA protocol Continue medications from previous hospitalization on M5 Encourage groups Referral to outpatient psychiatric providers ? Referral to substance abuse program Discharge planning 07/31:Laying in bed. sleeping most of day. Pt woke up briefly to speak with T/W; pt continues to report feeling depressed. Continues to report suicidal ideation with no plan. denies HI/VH/AH. Pt requested to end assessment so he can sleep it off . pt scoring on CIWA. nursing to monitor. continue current tx plan. 08/01: Patient reports feeling a little better today;pt stated, I'm still having suicidal thoughts but not as much . He feels his withdrawal symptoms are improving. States he will try to go shower and go to groups today. denies HI/VH/AH. per nursing, slept 8 hours. Continue current tx plan. 08/02: Laying in bed. keeping to self. denies withdrawal symptoms;CIWA D/C'd. Patient continues to report feeling depressed ; passive SI with no plan. denies HI/VH/AH. Increased Wellbutrin XL to 300mg PO daily'pt aware. 08/03: continue current management and treatment plan. 08/04: Switched Trazodone to QHS. Continue management and treatment plan. 08/05: Keeping to self. laying in bed. reports feeling fine today; states he does not want to go to the [facility] and [facility]. Pt stated, I'm just going to focus on staying sober . denies SI/HI/VH/AH. Social work discussed with pt steps to get into sober house, which involve going to a program prior to being accepted to sober living. Patient educated on: diagnosis, medication risk/benefits and substance abuse Reason for continued inpatient stay Substantial Risk for: med/psych decompensation Time Spent With Patient Time: Total time managing care of this patient today _20___ minutes.
[2024-08-05 20:38] VITALS: BP 123/64; PULSE 87; RESP 16; TEMP 37.1; O2SAT 98
[2024-08-05] MEDS: Prazosin HCL 1 MG CAPSULE 2 MG PO (21:34)
[2024-08-06 07:30] VITALS: BP 144/79; PULSE 78; RESP 14; TEMP 36.9; O2SAT 98
[2024-08-06] MEDS: buPROPion HCl XL 300 MG TAB.ER.24H PO (08:30)
--- NOTE | 2024-08-06 09:25 | HO.PSYCHPN ---
Subjective Subjective Date of Service: 08/06/24 Reason For Visit: crisis Subjective Notes: Conditional Voluntary Interim History: Patient reports feeling okay today; pt stated, I still feel kennedy down but I don't have any anxiety . Pt reports he continues to have nightmares. Increased Prazosin to 3mg PO bedtime. Per nursing, slept 7 hours last night. denies SI/HI/VH/AH. Plan to discharge this week if continues to improve. Medication Compliance: Yes Side effects from medications: No Attending Groups: No Review of Systems Constitutional: Reports as per HPI Eyes: Reports as per HPI Reports as per HPI Cardiovascular: Reports as per HPI Respiratory: Reports as per HPI Gastrointestinal: Reports as per HPI Genitourinary: Reports as per HPI Musculoskeletal: Reports as per HPI Skin/Breast: Reports as per HPI Reports as per HPI Psychiatric: Reports as per HPI Endocrine: Reports as per HPI Hematologic/Lymphatic: Reports as per HPI Allergic/Immunologic: Reports as per HPI Mental Status Exam Mental Status Exam Narrative: Pt is alert and oriented; behavior is cooperative and calm; dressed in casual attire; mood is described as good ; eye contact appropriate; Speech is normal rate, volume and not pressured; thought process is organized; Thought content is on tx; denies SI/HI/VH/AH. Diagnostics Vital Signs (24Hr): Vital Signs - 24 hr 08/05/24 20:38 08/06/24 07:30 Temperature 98.7 F 98.5 F Pulse Rate 87 78 Respiratory Rate 16 14 Blood Pressure 123/64 144/79 H Pulse Oximetry 98 98 Oxygen Delivery Method Room Air Room Air BMI result Body Mass Index 27.3 Labs 07/29/24 02:41 07/30/24 14:18 Medications Medications Current Medications Acetaminophen (Acetaminophen 325 Mg Tablet) 650 mg PO Q6H PRN PRN Reason: Headache/Pain Mild Scale (1-3) Al Hydroxide/Mg Hydroxide (Magnesium Hydrox/Alum Hydrox 30 Ml Oral.Susp) 30 ml PO Q6H PRN PRN Reason: Heartburn/Nausea Last Admin: 08/02/24 12:26 Dose: 30 ml Bupropion HCl (Bupropion Hcl Xl 300 Mg Tab.Er.24h) 300 mg PO DAILY SUSIE Last Admin: 08/06/24 08:30 Dose: 300 mg Hydroxyzine HCl (Hydroxyzine Hcl 50 Mg Tablet) 50 mg PO TID PRN PRN Reason: Anxiety Last Admin: 08/04/24 17:39 Dose: 50 mg Magnesium Hydroxide (Milk Of Magnesia 30 Ml Oral.Susp) 30 ml PO DAILY PRN PRN Reason: Constipation Nicotine Polacrilex (Nicotine Polacrilex 2 Mg Gum) 4 mg BUCCAL Q2H PRN PRN Reason: Nicotine Cravings Olanzapine (Olanzapine 5 Mg Tablet) 5 mg PO Q4H PRN PRN Reason: agitation Last Admin: 08/05/24 03:19 Dose: 5 mg Ondansetron HCl (Ondansetron Odt 8 Mg Tab.Rapdis) 8 mg TRANSLINGU Q12H PRN PRN Reason: Nausea and Vomiting Prazosin HCl (Prazosin Hcl 1 Mg Capsule) 2 mg PO BEDTIME SUSIE; Protocol Last Admin: 08/05/24 21:34 Dose: 2 mg Trazodone HCl (Trazodone Hcl 100 Mg Tablet) 100 mg PO BEDTIME SUSIE Last Admin: 08/05/24 21:34 Dose: 100 mg Allergies Allergies Allergy/AdvReac Type Severity Reaction Status Date / Time shellfish derived [shellfish] Allergy Difficulty Verified 07/29/24 02:33 Breathing Assessment & Plan Assessment & Plan (1) MDD (major depressive disorder), recurrent, severe, with psychosis: Status: Acute Code(s): F33.3 - Major depressive disorder, recurrent, severe with psychotic symptoms (2) PTSD (post-traumatic stress disorder): Status: Acute Code(s): F43.10 - Post-traumatic stress disorder, unspecified (3) Cocaine use disorder: Status: Acute Code(s): F14.10 - Cocaine abuse, uncomplicated (4) Alcohol use disorder: Status: Acute Code(s): F10.90 - Alcohol use, unspecified, uncomplicated (5) Homeless: Status: Acute Code(s): Z59.00 - Homelessness unspecified Plan Patient is a 44-year-old male with history of MDD, PTSD, cocaine use disorder and alcohol use disorder who self presented to [facility] due to suicidal ideation secondary to feelings of hopelessness. Plan: CV 15 minute safety checks CIWA protocol Continue medications from previous hospitalization on M5 Encourage groups Referral to outpatient psychiatric providers ? Referral to substance abuse program Discharge planning 07/31:Laying in bed. sleeping most of day. Pt woke up briefly to speak with T/W; pt continues to report feeling depressed. Continues to report suicidal ideation with no plan. denies HI/VH/AH. Pt requested to end assessment so he can sleep it off . pt scoring on CIWA. nursing to monitor. continue current tx plan. 08/01: Patient reports feeling a little better today;pt stated, I'm still having suicidal thoughts but not as much . He feels his withdrawal symptoms are improving. States he will try to go shower and go to groups today. denies HI/VH/AH. per nursing, slept 8 hours. Continue current tx plan. 08/02: Laying in bed. keeping to self. denies withdrawal symptoms;CIWA D/C'd. Patient continues to report feeling depressed ; passive SI with no plan. denies HI/VH/AH. Increased Wellbutrin XL to 300mg PO daily'pt aware. 08/03: continue current management and treatment plan. 08/04: Switched Trazodone to QHS. Continue management and treatment plan. 08/05: Keeping to self. laying in bed. reports feeling fine today; states he does not want to go to the [facility] and [facility]. Pt stated, I'm just going to focus on staying sober . denies SI/HI/VH/AH. Social work discussed with pt steps to get into sober house, which involve going to a program prior to being accepted to sober living. 08/06: Patient reports feeling okay today; pt stated, I still feel kennedy down but I don't have any anxiety . Pt reports he continues to have nightmares. Increased Prazosin to 3mg PO bedtime. Per nursing, slept 7 hours last night. denies SI/HI/VH/AH. Plan to discharge this week if continues to improve. Patient educated on: diagnosis, medication risk/benefits and therapeutic strategies Reason for continued inpatient stay Substantial Risk for: med/psych decompensation Time Spent With Patient Time: Total time managing care of this patient today _20___ minutes.
[2024-08-06 20:00] VITALS: BP 133/77; PULSE 97; RESP 16; TEMP 37.2; O2SAT 98
[2024-08-06] MEDS: traZODone HCL 100 MG TABLET PO (21:25)
[2024-08-06 21:26] VITALS: BP 130/80
[2024-08-06] MEDS: Prazosin HCL 1 MG CAPSULE 3 MG PO (21:26)
[2024-08-07 07:30] VITALS: BP 134/61; PULSE 79; RESP 16; TEMP 36.9; O2SAT 97
[2024-08-07] MEDS: buPROPion HCl XL 300 MG TAB.ER.24H PO (08:03)
--- NOTE | 2024-08-07 08:56 | HO.PSYCHPN ---
Subjective Subjective Date of Service: 08/07/24 Reason For Visit: crisis Subjective Notes: Conditional Voluntary Interim History: Patient reports feeling good today; pt stated, I plan on going to my sister's house and stay with her after I'm discharged . Per nursing, slept 8 hours last night. denies SI/HI/VH/AH. Plan to discharge on Monday; pt aware. Pt reports he plans on following up with his outpatient providers. encouraged to attend groups while on the unit. Medication Compliance: Yes Side effects from medications: No Attending Groups: No Review of Systems Constitutional: Reports as per HPI Eyes: Reports as per HPI Reports as per HPI Cardiovascular: Reports as per HPI Respiratory: Reports as per HPI Gastrointestinal: Reports as per HPI Genitourinary: Reports as per HPI Musculoskeletal: Reports as per HPI Skin/Breast: Reports as per HPI Reports as per HPI Psychiatric: Reports as per HPI Endocrine: Reports as per HPI Hematologic/Lymphatic: Reports as per HPI Allergic/Immunologic: Reports as per HPI Mental Status Exam Mental Status Exam Narrative: Pt is alert and oriented; behavior is cooperative and calm; dressed in casual attire; mood is described as good ; eye contact appropriate; Speech is normal rate, volume and not pressured; thought process is organized; Thought content is on discharge; denies SI/HI/VH/AH. Diagnostics Vital Signs (24Hr): Vital Signs - 24 hr 08/06/24 20:00 08/06/24 21:26 08/07/24 07:30 Temperature 99 F 98.5 F Pulse Rate 97 79 Respiratory Rate 16 16 Blood Pressure 133/77 130/80 134/61 Pulse Oximetry 98 97 Oxygen Delivery Method Room Air Room Air BMI result Body Mass Index 27.3 Labs 07/29/24 02:41 07/30/24 14:18 Medications Medications Current Medications Acetaminophen (Acetaminophen 325 Mg Tablet) 650 mg PO Q6H PRN PRN Reason: Headache/Pain Mild Scale (1-3) Al Hydroxide/Mg Hydroxide (Magnesium Hydrox/Alum Hydrox 30 Ml Oral.Susp) 30 ml PO Q6H PRN PRN Reason: Heartburn/Nausea Last Admin: 08/02/24 12:26 Dose: 30 ml Bupropion HCl (Bupropion Hcl Xl 300 Mg Tab.Er.24h) 300 mg PO DAILY SUSIE Last Admin: 08/07/24 08:03 Dose: 300 mg Hydroxyzine HCl (Hydroxyzine Hcl 50 Mg Tablet) 50 mg PO TID PRN PRN Reason: Anxiety Last Admin: 08/04/24 17:39 Dose: 50 mg Magnesium Hydroxide (Milk Of Magnesia 30 Ml Oral.Susp) 30 ml PO DAILY PRN PRN Reason: Constipation Nicotine Polacrilex (Nicotine Polacrilex 2 Mg Gum) 4 mg BUCCAL Q2H PRN PRN Reason: Nicotine Cravings Olanzapine (Olanzapine 5 Mg Tablet) 5 mg PO Q4H PRN PRN Reason: agitation Last Admin: 08/05/24 03:19 Dose: 5 mg Ondansetron HCl (Ondansetron Odt 8 Mg Tab.Rapdis) 8 mg TRANSLINGU Q12H PRN PRN Reason: Nausea and Vomiting Prazosin HCl (Prazosin Hcl 1 Mg Capsule) 3 mg PO BEDTIME SUSIE; Protocol Last Admin: 08/06/24 21:26 Dose: 3 mg Trazodone HCl (Trazodone Hcl 100 Mg Tablet) 100 mg PO BEDTIME SUSIE Last Admin: 08/06/24 21:25 Dose: 100 mg Allergies Allergies Allergy/AdvReac Type Severity Reaction Status Date / Time shellfish derived [shellfish] Allergy Difficulty Verified 07/29/24 02:33 Breathing Assessment & Plan Assessment & Plan (1) MDD (major depressive disorder), recurrent, severe, with psychosis: Status: Acute Code(s): F33.3 - Major depressive disorder, recurrent, severe with psychotic symptoms (2) PTSD (post-traumatic stress disorder): Status: Acute Code(s): F43.10 - Post-traumatic stress disorder, unspecified (3) Cocaine use disorder: Status: Acute Code(s): F14.10 - Cocaine abuse, uncomplicated (4) Alcohol use disorder: Status: Acute Code(s): F10.90 - Alcohol use, unspecified, uncomplicated (5) Homeless: Status: Acute Code(s): Z59.00 - Homelessness unspecified Plan Patient is a 44-year-old male with history of MDD, PTSD, cocaine use disorder and alcohol use disorder who self presented [place] [facility] due to suicidal ideation secondary to feelings of hopelessness. Plan: CV 15 minute safety checks CIWA protocol Continue medications from previous hospitalization on M5 Encourage groups Referral to outpatient psychiatric providers ? Referral to substance abuse program Discharge planning 07/31:Laying in bed. sleeping most of day. Pt woke up briefly to speak with T/W; pt continues to report feeling depressed. Continues to report suicidal ideation with no plan. denies HI/VH/AH. Pt requested to end assessment so he can sleep it off . pt scoring on CIWA. nursing to monitor. continue current tx plan. 08/01: Patient reports feeling a little better today;pt stated, I'm still having suicidal thoughts but not as much . He feels his withdrawal symptoms are improving. States he will try to go shower and go to groups today. denies HI/VH/AH. per nursing, slept 8 hours. Continue current tx plan. 08/02: Laying in bed. keeping to self. denies withdrawal symptoms;CIWA D/C'd. Patient continues to report feeling depressed ; passive SI with no plan. denies HI/VH/AH. Increased Wellbutrin XL to 300mg PO daily'pt aware. 08/03: continue current management and treatment plan. 08/04: Switched Trazodone to QHS. Continue management and treatment plan. 08/05: Keeping to self. laying in bed. reports feeling fine today; states he does not want to go to the [facility] and plans on returning to alf when discharged. Pt stated, I'm just going to focus on staying sober . denies SI/HI/VH/AH. Social work discussed with pt steps to get into sober house, which involve going to a program prior to being accepted to sober living. 08/06: Patient reports feeling okay today; pt stated, I still feel kennedy down but I don't have any anxiety . Pt reports he continues to have nightmares. Increased Prazosin to 3mg PO bedtime. Per nursing, slept 7 hours last night. denies SI/HI/VH/AH. Plan to discharge this week if continues to improve. 08/07: Patient reports feeling good today; pt stated, I plan on going to my sister's house and stay with her after I'm discharged . Per nursing, slept 8 hours last night. denies SI/HI/VH/AH. Plan to discharge on Monday; pt aware. Pt reports he plans on following up with his outpatient providers. encouraged to attend groups while on the unit. Patient educated on: diagnosis, medication risk/benefits and therapeutic strategies Reason for continued inpatient stay Substantial Risk for: med/psych decompensation Time Spent With Patient Time: Total time managing care of this patient today _20___ minutes.
[2024-08-07] MEDS: Acetaminophen 325 MG TABLET 650 MG PO (17:13)
[2024-08-07 19:05] VITALS: BP 151/86; PULSE 78; RESP 16; TEMP 37.2; O2SAT 98
[2024-08-07 22:12] VITALS: BP 145/89; PULSE 82
[2024-08-07] MEDS: Prazosin HCL 1 MG CAPSULE 3 MG PO (22:14)
[2024-08-07] MEDS: traZODone HCL 100 MG TABLET PO (22:14)
[2024-08-08 07:00] VITALS: BMI 27.8
[2024-08-08 07:39] VITALS: BP 113/63; PULSE 74; RESP 18; TEMP 36.9; O2SAT 96
[2024-08-08] MEDS: buPROPion HCl XL 300 MG TAB.ER.24H PO (08:21)
--- NOTE | 2024-08-08 09:12 | P.PNPSI_ITS ---
Subjective Subjective Date of Service: 08/08/24 Reason For Visit: crisis Subjective Notes: Conditional Voluntary Interim History: Patient reports feeling good today; pt stated, I feel better than when I came in. I'm going to take the bus to my sister's . denies SI/HI/VH/AH. Pt plans on following up with his outpatient providers. Medication Compliance: Yes Side effects from medications: No Attending Groups: No Review of Systems Constitutional: Reports as per HPI Eyes: Reports as per HPI Reports as per HPI Cardiovascular: Reports as per HPI Respiratory: Reports as per HPI Gastrointestinal: Reports as per HPI Genitourinary: Reports as per HPI Musculoskeletal: Reports as per HPI Skin/Breast: Reports as per HPI Reports as per HPI Psychiatric: Reports as per HPI Endocrine: Reports as per HPI Hematologic/Lymphatic: Reports as per HPI Allergic/Immunologic: Reports as per HPI Mental Status Exam Mental Status Exam Narrative: Pt is alert and oriented; behavior is cooperative and calm; dressed in casual attire; mood is described as good ; eye contact appropriate; Speech is normal rate, volume and not pressured; thought process is organized; Thought content is on discharge; denies SI/HI/VH/AH. Diagnostics Vital Signs (24Hr): Vital Signs - 24 hr 08/07/24 19:05 08/07/24 22:12 08/08/24 07:39 Temperature 98.9 F 98.5 F Pulse Rate 78 82 74 Respiratory Rate 16 18 Blood Pressure 151/86 H 145/89 H 113/63 Pulse Oximetry 98 96 Oxygen Delivery Method Room Air Room Air BMI result Body Mass Index 27.3 Labs 07/29/24 02:41 07/30/24 14:18 Medications Medications Current Medications Acetaminophen (Acetaminophen 325 Mg Tablet) 650 mg PO Q6H PRN PRN Reason: Headache/Pain Mild Scale (1-3) Last Admin: 08/07/24 17:13 Dose: 650 mg Al Hydroxide/Mg Hydroxide (Magnesium Hydrox/Alum Hydrox 30 Ml Oral.Susp) 30 ml PO Q6H PRN PRN Reason: Heartburn/Nausea Last Admin: 08/02/24 12:26 Dose: 30 ml Bupropion HCl (Bupropion Hcl Xl 300 Mg Tab.Er.24h) 300 mg PO DAILY SUSIE Last Admin: 08/08/24 08:21 Dose: 300 mg Hydroxyzine HCl (Hydroxyzine Hcl 50 Mg Tablet) 50 mg PO TID PRN PRN Reason: Anxiety Last Admin: 08/04/24 17:39 Dose: 50 mg Magnesium Hydroxide (Milk Of Magnesia 30 Ml Oral.Susp) 30 ml PO DAILY PRN PRN Reason: Constipation Naloxone HCl (Naloxone Hcl Nasal Take Home 4 Mg [place]) 8 mg NOSTRILALT ONCE ONE Stop: 08/09/24 08:01 Nicotine Polacrilex (Nicotine Polacrilex 2 Mg Gum) 4 mg BUCCAL Q2H PRN PRN Reason: Nicotine Cravings Olanzapine (Olanzapine 5 Mg Tablet) 5 mg PO Q4H PRN PRN Reason: agitation Last Admin: 08/05/24 03:19 Dose: 5 mg Ondansetron HCl (Ondansetron Odt 8 Mg Tab.Rapdis) 8 mg TRANSLINGU Q12H PRN PRN Reason: Nausea and Vomiting Prazosin HCl (Prazosin Hcl 1 Mg Capsule) 3 mg PO BEDTIME SUSIE; Protocol Last Admin: 08/07/24 22:14 Dose: 3 mg Trazodone HCl (Trazodone Hcl 100 Mg Tablet) 100 mg PO BEDTIME SUSIE Last Admin: 08/07/24 22:14 Dose: 100 mg Allergies Allergies Allergy/AdvReac Type Severity Reaction Status Date / Time shellfish derived [shellfish] Allergy Difficulty Verified 07/29/24 02:33 Breathing Assessment & Plan Assessment & Plan (1) MDD (major depressive disorder), recurrent, severe, with psychosis: Status: Acute Code(s): F33.3 - Major depressive disorder, recurrent, severe with psychotic symptoms (2) PTSD (post-traumatic stress disorder): Status: Acute Code(s): F43.10 - Post-traumatic stress disorder, unspecified (3) Cocaine use disorder: Status: Acute Code(s): F14.10 - Cocaine abuse, uncomplicated (4) Alcohol use disorder: Status: Acute Code(s): F10.90 - Alcohol use, unspecified, uncomplicated (5) Homeless: Status: Acute Code(s): Z59.00 - Homelessness unspecified Plan Patient is a 44-year-old male with history of MDD, PTSD, cocaine use disorder and alcohol use disorder who self presented [place] [facility] due to suicidal ideation secondary to feelings of hopelessness. Plan: CV 15 minute safety checks CIWA protocol Continue medications from previous hospitalization on M5 Encourage groups Referral to outpatient psychiatric providers ? Referral to substance abuse program Discharge planning 07/31:Laying in bed. sleeping most of day. Pt woke up briefly to speak with T/W; pt continues to report feeling depressed. Continues to report suicidal ideation with no plan. denies HI/VH/AH. Pt requested to end assessment so he can sleep it off . pt scoring on CIWA. nursing to monitor. continue current tx plan. 08/01: Patient reports feeling a little better today;pt stated, I'm still having suicidal thoughts but not as much . He feels his withdrawal symptoms are improving. States he will try to go shower and go to groups today. denies HI/VH/AH. per nursing, slept 8 hours. Continue current tx plan. 08/02: Laying in bed. keeping to self. denies withdrawal symptoms;CIWA D/C'd. Patient continues to report feeling depressed ; passive SI with no plan. denies HI/VH/AH. Increased Wellbutrin XL to 300mg PO daily'pt aware. 08/03: continue current management and treatment plan. 08/04: Switched Trazodone to QHS. Continue management and treatment plan. 08/05: Keeping to self. laying in bed. reports feeling fine today; states he does not want to go to the [facility] and plans on returning to snf when discharged. Pt stated, I'm just going to focus on staying sober . denies SI/HI/VH/AH. Social work discussed with pt steps to get into sober house, which involve going to a program prior to being accepted to sober living. 08/06: Patient reports feeling okay today; pt stated, I still feel kennedy down but I don't have any anxiety . Pt reports he continues to have nightmares. Increased Prazosin to 3mg PO bedtime. Per nursing, slept 7 hours last night. denies SI/HI/VH/AH. Plan to discharge this week if continues to improve. 08/07: Patient reports feeling good today; pt stated, I plan on going to my sister's house and stay with her after I'm discharged . Per nursing, slept 8 hours last night. denies SI/HI/VH/AH. Plan to discharge on Monday; pt aware. Pt reports he plans on following up with his outpatient providers. encouraged to attend groups while on the unit. 08/08: Patient reports feeling good today; pt stated, I feel better than when I came in. I'm going to take the bus to my sister's . denies SI/HI/VH/AH. Pt plans on following up with his outpatient providers. Patient educated on: diagnosis and medication risk/benefits Reason for continued inpatient stay Substantial Risk for: stable for discharge Time Spent With Patient Time: Total time managing care of this patient today _20___ minutes.
[2024-08-08 19:08] VITALS: BP 171/91; PULSE 71; RESP 16; TEMP 36.9; O2SAT 99
[2024-08-08] MEDS: Prazosin HCL 1 MG CAPSULE 3 MG PO (22:06)
[2024-08-08] MEDS: traZODone HCL 100 MG TABLET PO (22:06)
[2024-08-09] MEDS: buPROPion HCl XL 300 MG TAB.ER.24H PO (08:09)
[2024-08-09] MEDS: Naloxone HCl Nasal TAKE HOME 4 MG SPRAY 8 MG NOSTRILALT (08:11)
--- NOTE | 2024-08-09 09:29 | P.DS_ITS ---
DS: Providers Provider Date of Service: 08/09/24 Date of admission: 07/30/24 12:43 Date of discharge: 08/09/24 Primary care physician: VILMA Wade Admitting clinician: Brigitte Mandujano Attending physician on admission: Mickey Lobo Consults: 07/30/24 14:49 Addiction Medicine Routine Consulting Provider: Addiction Covering Reason for consultation: ETOH use daily 7-8 drinks Has provider been notified: Yes Attending physician on discharge: Louie Farmer Discharging clinician: Brigitte Mandujano DS: Diagnosis Discharge Diagnosis (1) MDD (major depressive disorder), recurrent, severe, with psychosis: Status: Acute (2) PTSD (post-traumatic stress disorder): Status: Acute (3) Cocaine use disorder: Status: Acute (4) Alcohol use disorder: Status: Acute (5) Homeless: Status: Acute DS: Medications Discharge Medications Home Medications: Previous Rx's ?Medication ?Instructions ?Recorded bupropion HCl 300 mg 24 hr tablet, 300 mg PO DAILY 30 days #30 tabs 08/08/24 extended release hydroxyzine HCl 50 mg tablet 50 mg PO TID PRN Anxiety 30 days 08/08/24 #90 tabs prazosin 1 mg capsule 3 mg PO BEDTIME 30 days #90 caps 08/08/24 trazodone 100 mg tablet 100 mg PO BEDTIME 30 days #30 tabs 08/08/24 Mental Status Exam Mental Status Exam Narrative: Pt is alert and oriented; behavior is cooperative and calm; dressed in casual attire; mood is described as good ; eye contact appropriate; Speech is normal rate, volume and not pressured; thought process is organized; Thought content is on discharge; denies SI/HI/VH/AH. Data Data Completed and Pending Completed studies during hospitalization [Text1]: 07/29/24 Unknown Urine clean catch - Clean Catch Midstream Urine Culture - Final DS: Summary Hospital Course Hospital Course: Patient is a 44-year-old male with history of MDD, PTSD, cocaine use disorder and alcohol use disorder who self presented to [facility] due to suicidal ideation secondary to feelings of hopelessness. Per crisis report, patient presented reporting having bad thoughts and thoughts of hopelessness . Endorsed suicidal ideation with no plan. He reports using crack cocaine and alcohol. Patient reports feeling depressed and stressed out all the time ; reports he has not eaten in days and does not sleep well as he is homeless. He reports auditory hallucinations that tell him to harm himself and visual hallucinations of people . Patient's baseline is not currently known due to his history of chronic substance and alcohol use as well as noncompliance with treatment and medications. History of being connected with [facility] but is currently not connected with any outpatient psychiatric providers. He was recently referred to [facility] when discharged from however, admits that he did not follow up with his appointments. Patient reports consuming a pint of vodka daily and smoking an 8 ball of crack daily. history of 2 previous overdoses on opiates in 2022. During admission assessment, patient presents alert and oriented x3, calm and cooperative. Patient reports feeling depressed ; patient stated, I do not want to live. I feel like there is nothing to live for. Life is making me depressed and my family situation. I want to get on my meds again and maybe go to a program after here . Patient reports suicidal ideation with no plan. Denies HI/VH/AH. Patient reports he would like to be restarted on the medications that he was taking on [facility]5 . He reports not taking medications for the last 2 months because he did not know what pharmacy that they were sent to . Plan: CV 15 minute safety checks CIWA protocol Continue medications from previous hospitalization on M5 Encourage groups Referral to outpatient psychiatric providers ? Referral to substance abuse program Discharge planning Laying in bed. sleeping most of day. Pt woke up briefly to speak with T/W; pt continues to report feeling depressed. Continues to report suicidal ideation with no plan. denies HI/VH/AH. Pt requested to end assessment so he can sleep it off . pt scoring on CIWA. nursing to monitor. continue current tx plan. Patient reports feeling a little better today;pt stated, I'm still having suicidal thoughts but not as much . He feels his withdrawal symptoms are improving. States he will try to go shower and go to groups today. denies HI/VH/AH. per nursing, slept 8 hours. Continue current tx plan. Laying in bed. keeping to self. denies withdrawal symptoms;CIWA D/C'd. Patient continues to report feeling depressed ; passive SI with no plan. denies HI/VH/AH. Increased Wellbutrin XL to 300mg PO daily'pt aware. Switched Trazodone to QHS. Continue management and treatment plan. Keeping to self. laying in bed. reports feeling fine today; states he does not want to go to the [facility] and plans on returning to half-way when discharged. Pt stated, I'm just going to focus on staying sober . denies SI/HI/VH/AH. Social work discussed with pt steps to get into sober house, which involve going to a program prior to being accepted to sober living. Patient reports feeling okay today; pt stated, I still feel kennedy down but I don't have any anxiety . Pt reports he continues to have nightmares. Increased Prazosin to 3mg PO bedtime. Per nursing, slept 7 hours last night. denies SI/HI/VH/AH. Plan to discharge this week if continues to improve. Patient reports feeling good today; pt stated, I plan on going to my sister's house and stay with her after I'm discharged . Per nursing, slept 8 hours last night. denies SI/HI/VH/AH. Plan to discharge on Monday; pt aware. Pt reports he plans on following up with his outpatient providers. encouraged to attend groups while on the unit. Patient reports feeling good today; pt stated, I feel better than when I came in. I'm going to take the bus to my sister's . denies SI/HI/VH/AH. Pt plans on following up with his outpatient providers. Status at Discharge Cognitive/behavioral status at discharge: Patient has insight and demonstrates good judgment in terms of wanting to pursue treatment. Patient has a safety plan that includes presenting to the closest ER or calling 911 if feeling unsafe. Functional status at discharge: independent ambulation Overall status at discharge: patient is back to baseline Time Spent with Patient Time attestation: Total time managing care of this patient today _20___ minutes. Time spent: Less than 30 minutes Discharge Plan Discharge Anticipated Discharge Date/Time: 08/09/24 10:00 Patient Disposition: Home, Self-Care Discharge Diagnosis: MDD, PTSD, alcohol use d/o, cocaine use d/o Referrals: Mike ([facility] CLinician) [Other] - 08/14/24 11:00 am (in person appointment) Dr. Jarvis ([facility] psychiatrist) [Other] - 09/17/24 9:00 am (In person appointment. ) Humberto Lozano PA [Primary Care Provider] - 08/13/24 9:00 am (08-07-24 Your follow up appt has been scheduled for Monday08-13-24 @ 9am.) Discharge Medications: New trazodone 100 mg Tablet 100 mg PO BEDTIME 30 Days Qty: 30 0RF bupropion HCl 300 mg Tablet Extended Release 24 Hr 300 mg PO DAILY 30 Days Qty: 30 0RF prazosin 1 mg Capsule 3 mg PO BEDTIME 30 Days Qty: 90 0RF Protocol: Hold for SBP< HOLD for SBP < : 90 hydroxyzine HCl 50 mg Tablet 50 mg PO TID PRN (Reason: Anxiety) 30 Days Qty: 90 0RF Discharge Orders: Discharge Order (Routine); Ordered 08/09/24 Ordered By: Brigitte Mandujano Diet: Regular diet Activity on Discharge: As tolerated Stand Alone Forms: Patient Portal Discharge page, Community Support Print Language: Wolof Care Plan Goals: Maintain mood and safe behaviors Take medications as prescribed Continue to pursue sobriety Practice coping skills Continue with outpatient providers and reach out to them as needed Health Concerns: Mood stability and behaviors Sobriety Plan of Treatment: Follow up with your PCP, psychiatric provider and other outpatient providers regarding above concerns Take medications as prescribed Assessment: Patient has insight and demonstrates good judgment in terms of wanting to pursue treatment. Patient has a safety plan that includes presenting to the closest ER or calling 911 if feeling unsafe. Discharge Date/Time: 08/09/24 10:28
== END 2024-08-09 10:28 | disposition home or self-care (01) | DRG 751 ==
LOC: HO.ED 16:03 → HO.PADLT16 07-30 12:52
PROVIDERS: Admitting Provider Registered Nurse; Emergency Provider Emergency Medicine; PCP Physician Assistant Medical; Responsible Provider Registered Nurse; Visit Provider Psychiatry & Neurology Psychiatry
DX: F33.3 Major depressive disorder, recurrent, severe with psychotic symptoms (principal); R45.851 Suicidal ideations; F17.210 Nicotine dependence, cigarettes, uncomplicated; F10.90 Alcohol use, unspecified, uncomplicated; F14.10 Cocaine abuse, uncomplicated; F43.10 Post-traumatic stress disorder, unspecified; Z71.6 Tobacco abuse counseling; Z59.02 Unsheltered homelessness; Z79.899 Other long term (current) drug therapy
CPT/HCPCS: 36415; 80053; 80061; 80143; 80179; 80307; 81001; 85025; 87086; 93005; 99285; S9485

== ENCOUNTER → 2024-07-29 02:39 | Outpatient (BNV) | payer OTHER, SELFPAY | PROVIDERS: Emergency Provider Emergency Medicine; PCP Physician Assistant Medical; Visit Provider Internal Medicine Cardiovascular Disease | DX: I45.81 Long QT syndrome (principal) | CPT/HCPCS: 93010 ==

== ENCOUNTER → 2024-07-30 12:43 | Outpatient (BNV) | payer OTHER, SELFPAY | PROVIDERS: Admitting Provider Registered Nurse; Emergency Provider Emergency Medicine; PCP Physician Assistant Medical; Responsible Provider Registered Nurse; Visit Provider Psychiatry & Neurology Psychiatry | DX: F33.3 Major depressive disorder, recurrent, severe with psychotic symptoms (principal); F43.10 Post-traumatic stress disorder, unspecified; F14.10 Cocaine abuse, uncomplicated; F10.90 Alcohol use, unspecified, uncomplicated; Z59.00 Homelessness unspecified | CPT/HCPCS: 99231; 99232; 99233 ==

== ENCOUNTER 2024-09-15 22:03 | Emergency (ER) | payer OTHER, SELFPAY ==
[2024-09-15 22:07] VITALS: BP 135/90; PULSE 112; RESP 18; TEMP 36.8; O2SAT 97; BMI 26.5
[2024-09-15 22:26] LABS: MANUAL DIFF FLAG NO
[2024-09-15 22:27] LABS: Basophils Percent Auto 0.3 % (0-2); Eosinophils Absolute Auto 0.1 X10*3/uL (0.0-0.4); Eosinophils Percent Auto 0.5 % (0-4); Hematocrit 44.3 % (42.0-52.0); Hemoglobin 14.4 g/dl (14.0-18.0); Imm Gran Abs Auto 0.04 X10*3/uL (0.00-0.03); Imm Gran Pct Auto 0.4 % (0.0-0.4); Lymphocytes Absolute Auto 1.8 X10*3/uL (1.2-4.9); Lymphocytes Percent Auto 16.7 % (20-40); Mean Corpuscular HGB Conc 32.5 g/dl (31.0-36.0); Mean Corpuscular Hemoglobin 27.2 pg (27.0-33.0); Mean Corpuscular Volume 83.7 fL (80.0-98.0); Mean Platelet Volume 8.5 fL (9.4-12.4); Monocytes Absolute Auto 0.9 X10*3/uL (0.1-1.2); Monocytes Percent Auto 8.1 % (2-11); Neutrophils Absolute Auto 7.9 x10*3/uL (2.0-8.3); Platelet Count 365 X10*3/uL (160-400); Red Blood Count 5.29 X10*6/uL (4.60-5.80); Red Cell Distribution Width 13.5 % (11.0-16.0); White Blood Count 10.6 X10*3/uL (4.8-10.8)
--- NOTE | 2024-09-15 22:38 | MHC.EDTECH ---
patient belongings placed on bottom shelf of [facility]
[2024-09-15 22:40] LABS: Alanine Aminotransferase 17 U/L (0-40); Alkaline Phosphatase 111 U/L (39-117); Anion Gap 19 (12-20); Aspartate Amino Transferase 22 U/L (5-37); Bilirubin Total 0.7 mg/dL (0.0-1.0); Blood Urea Nitrogen 14 mg/dL (9-16); Carbon Dioxide 22 mmol/L (22-29); Chloride 106 mmol/L (96-108); Creatinine Clr Calc Pharmacy 78.8; Estimated Glomerular Filt Rate > 60; Ethanol < 10 mg/dL; Glucose Random 77 mg/dL (60-115); Potassium 4.1 mmol/L (3.3-5.1); Sodium 143 mmol/L (135-145); Total Protein 7.7 g/dL (6.5-8.0)
[2024-09-15 22:41] LABS: Acetaminophen LAB < 3 mcg/mL (<30); Salicylate < 5.0 mg/dL (15-30)
--- NOTE | 2024-09-15 23:28 | ED.PSYCH ---
HPI - Psych General Chief Complaint: Psychiatric Symptoms Stated Complaint: crisis Time Seen by Provider: 09/15/24 22:31 Source: patient Mode of arrival: ambulatory Limitations: no limitations History of Present Illness ED Provider: HPI Narrative: Patient's history of PTSD, depression substance abuse cocaine and alcohol homeless jobless feels increasing depressed with suicidal feeling without any plans noncompliant to his medications no recent substance abuse Related Data Previous Rx's ?Medication ?Instructions ?Recorded bupropion HCl 300 mg 24 hr tablet, 300 mg PO DAILY 30 days #30 tabs 08/08/24 extended release hydroxyzine HCl 50 mg tablet 50 mg PO TID PRN Anxiety 30 days 08/08/24 #90 tabs prazosin 1 mg capsule 3 mg PO BEDTIME 30 days #90 caps 08/08/24 trazodone 100 mg tablet 100 mg PO BEDTIME 30 days #30 tabs 08/08/24 Allergies Allergy/AdvReac Type Severity Reaction Status Date / Time shellfish derived [shellfish] Allergy Difficulty Verified 09/15/24 22:11 Breathing Review of Systems Review of Systems: Yes all other systems are reviewed and are negative PMFSH Past Medical History Medical History Suicidal ideation Polysubstance abuse Suicidal ideation PTSD (post-traumatic stress disorder) MDD (major depressive disorder), recurrent, severe, with psychosis Cocaine use disorder Alcohol use disorder Homeless Alcohol abuse Polysubstance abuse Social History Social History Household Members: None Housing: Homeless Do you presently have visiting nurse or other home services: No Alcohol intake: current Alcohol intake frequency: 3 or more drinks per day Alcohol type: beer, wine and hard liquor Patient Tobacco Use Status: Current everyday Tobacco user Tobacco use type: Cigarette Cigarette Packs Per Day: 1 Cigarettes Per Day: 20.0 Years Smoked: 20 e-Cigarette/Vaping Use: Former Use Second Hand Smoke Exposure: Yes (people smoking around him) Substance Use Type: Crack/Cocaine Advance Directives: No Advance Directives Information Provided: No service: No Sexual orientation: Unable to collect Physical Exam Vital Signs: Vital Signs: Last Vital Signs Temp 97.9 F 09/16/24 05:51 Pulse 74 09/16/24 05:51 Resp 12 09/16/24 05:51 BP 132/80 09/16/24 05:51 Pulse Ox 96 09/16/24 05:51 O2 Del Method Room Air 09/16/24 05:51 BMI result Body Mass Index 26.5 Appearance: Alert. Oriented X3. No acute distress. Eyes: PERRLA, No Nystagmus ENT: Pharynx normal. Oral Mucosa moist Neck: Normal inspection. Neck supple. CVS: Normal heart rate and rhythm. Pulses normal. Respiratory: No respiratory distress. Equal air entry bilateral, no wheezing/rales/rhonchi Abdomen: Soft and nontender. Bowel sounds are present, no mass palpable, no CVA tenderness Skin: Skin warm and dry. Normal skin color. Normal skin turgor. Extremities: No lower extremity edema. No calf tenderness Neuro: Oriented X 3. No motor deficit. No sensory deficit.No cerebellar signs , cranial nerves II-XII intact Medications Administered Discontinued Medications Generic Name Dose Route Start Last Admin Trade Name Freq PRN Reason Stop Dose Admin Acetaminophen 650 mg 09/16/24 02:35 09/16/24 02:39 Acetaminophen 325 Mg Tablet PO 09/16/24 02:36 650 mg ONCE ONE Administration Medical Decision Making Medical Decision Making MDM Narrative: Patient has increased depression with suicidal feeling will get care team involved Lab Data MDM Lab Attestation statement: I reviewed the patient's lab results. 09/15/24 22:20 09/15/24 22:20 Labs: Lab Results 09/15/24 09/16/24 Range/Units 22:20 00:07 WBC 10.6 (4.8-10.8) X10*3/uL RBC 5.29 (4.60-5.80) X10*6/uL Hgb 14.4 (14.0-18.0) g/dl Hct 44.3 (42.0-52.0) % MCV 83.7 (80.0-98.0) fL MCH 27.2 (27.0-33.0) pg MCHC 32.5 (31.0-36.0) g/dl RDW 13.5 (11.0-16.0) % Plt Count 365 (160-400) X10*3/uL MPV 8.5 L (9.4-12.4) fL Immature Gran % (Auto) 0.4 (0.0-0.4) % Neut % (Auto) 74.0 H (45-73) % Lymph % (Auto) 16.7 L (20-40) % [place] % (Auto) 8.1 (2-11) % Eos % (Auto) 0.5 (0-4) % Baso % (Auto) 0.3 (0-2) % Lymph # (Auto) 1.8 (1.2-4.9) X10*3/uL [place] # (Auto) 0.9 (0.1-1.2) X10*3/uL Eos # (Auto) 0.1 (0.0-0.4) X10*3/uL Baso # (Auto) 0.0 (0.0-0.2) X10*3/uL Abs Immat Gran (auto) 0.04 H (0.00-0.03) X10*3/uL Absolute Neuts (auto) 7.9 (2.0-8.3) x10*3/uL Absolute Nucleated RBC 0.000 (0.0-0.012) X10*3/uL Nucleated RBC % (auto) 0.0 (0.0-0.2) /100WBC Sodium 143 (135-145) mmol/L Potassium 4.1 (3.3-5.1) mmol/L Chloride 106 (96-108) mmol/L Carbon Dioxide 22 (22-29) mmol/L Anion Gap 19 (12-20) BUN 14 (9-16) mg/dL Creatinine 1.09 (0.5-1.4) mg/dL Estim Creat Clear Calc 78.8 Estimated GFR > 60 Random Glucose 77 (60-115) mg/dL Calcium 9.0 D (8.4-10.2) mg/dL Total Bilirubin 0.7 (0.0-1.0) mg/dL AST 22 (5-37) U/L ALT 17 (0-40) U/L Alkaline Phosphatase 111 (39-117) U/L Total Protein 7.7 (6.5-8.0) g/dL Albumin 4.0 (3.5-5.0) g/dL Salicylates < 5.0 L (15-30) mg/dL Acetaminophen < 3 (<30) mcg/mL Ethyl Alcohol < 10 mg/dL Influenza Type A (PCR) NEGATIVE (Negative) Influenza Type B (PCR) NEGATIVE (Negative) RSV RNA Qual (PCR) NEGATIVE (Negative) SARS-CoV-2 RNA (RT-PCR) NEGATIVE (Negative) Discharge Plan Discharge Clinical Impression: MDD (major depressive disorder), recurrent, severe, with psychosis, PTSD (post-traumatic stress disorder) Patient Disposition: Still a Patient Prescriptions: No Action trazodone 100 mg Tablet 100 mg PO BEDTIME 30 Days Qty: 30 0RF bupropion HCl 300 mg Tablet Extended Release 24 Hr 300 mg PO DAILY 30 Days Qty: 30 0RF prazosin 1 mg Capsule 3 mg PO BEDTIME 30 Days Qty: 90 0RF Protocol: Hold for SBP< HOLD for SBP < : 90 hydroxyzine HCl 50 mg Tablet 50 mg PO TID PRN (Reason: Anxiety) 30 Days Qty: 90 0RF Interventions: [place]-Suicide Risk Severity Scale Last Done: 09/16/24 00:38 Print Language: Hebrew
[2024-09-16 00:48] LABS: Influenza A PCR NEGATIVE (Negative); Influenza B PCR NEGATIVE (Negative); Resp Syncy Virus RNA Qual PCR NEGATIVE (Negative); SARS COV2 PCR INHOUSE NEGATIVE (Negative)
[2024-09-16] MEDS: Acetaminophen 325 MG TABLET 650 MG PO (02:39)
[2024-09-16 05:51] VITALS: BP 132/80; PULSE 74; RESP 12; TEMP 36.6; O2SAT 96
[2024-09-16 09:23] LABS: Amphetamine Screen Urine Not Detected (Not Detect); Barbiturates, Urine Not Detected (Not Detect); Benzodiazepines Screen Urine Not Detected (Not Detect); Buprenorphine Scr Not Detected (Not Detect); Cannabinoid Screen Urine Not Detected (Not Detect); Cocaine Screen Urine POSITIVE (Not Detect); Fentanyl, urine Not Detected (Not Detect); Methadone Screen, Urine Not Detected (Not Detect); Opiate Screen Urine Not Detected (Not Detect); Oxycodone Screen Urine Not Detected (Not Detect); Phencyclidine Screen Urine Not Detected (Not Detect)
--- NOTE | 2024-09-16 10:47 | MHC.CARE ---
Patient seen by CARE team and is requesting detox, patient reports passive suicidal thoughts however, denies any plan or intent and reports he can be safe in detox treatment facility.
--- NOTE | 2024-09-16 11:26 | MHC.RECOVRN ---
Met with pt in [id number] after notification from CARE Team that pt has been cleared and is interested in [facility]. Pt reports crack cocaine use, 3.75 grams daily x years. Pt reports he has not been to [facility] since last year. Is interested in [facility]. Referral sent.
--- NOTE | 2024-09-16 11:29 | MHC.RECOVRN ---
[facility] does not have bed availability.
--- NOTE | 2024-09-16 11:43 | MHC.RECOVRN ---
[facility] does have bed availability but does not accept pts with stimulant use disorder.
--- NOTE | 2024-09-16 12:37 | MHC.RECOVRN ---
Pt accepted to [facility]. Will be transported via [facility].
[2024-09-16 13:14] VITALS: BP 132/80; PULSE 74; RESP 12; TEMP 36.6
== END 2024-09-16 13:15 ==
PROVIDERS: Emergency Provider Internal Medicine; PCP Physician Assistant Medical
DX: R45.851 Suicidal ideations (principal); F33.1 Major depressive disorder, recurrent, moderate; F43.10 Post-traumatic stress disorder, unspecified; F14.10 Cocaine abuse, uncomplicated; F10.10 Alcohol abuse, uncomplicated; Y90.0 Blood alcohol level of less than 20 mg/100 ml; F17.210 Nicotine dependence, cigarettes, uncomplicated; Z51.81 Encounter for therapeutic drug level monitoring; Z03.818 Encounter for observation for suspected exposure to other biological agents ruled out; Z79.899 Other long term (current) drug therapy; Z59.00 Homelessness unspecified; Z91.148 Patient's other noncompliance with medication regimen for other reason
CPT/HCPCS: 0241U; 36415; 80053; 80143; 80179; 80307; 85025; 99284; S9485